=== PATIENT | male | born 1950 | race Caucasian/White ===

== ENCOUNTER 2019-05-04 16:21 | Inpatient (IN) ==
[2019-05-04 17:02] LABS: ALLEN TEST YES; BE -7.1 mmoll (-3.0-3.0); BLOOD TYPE ARTERIAL; HCO3-(ACT) 19.4 mmoll (20.0-26.0); MODALITY ROOM AIR; PCO2(98.6) 29 mmHg (35-45); PO2(98.6) 103 mmHg (60-100); SAMPLE BLOOD; pH(98.6) 7.37 (7.35-7.45)
[2019-05-04] MEDS ORDERED: NS 1,000 ML IV ONE ×2 (17:31→18:53)
[2019-05-04 17:39] LABS: BASO# 0.02 X1000 (0.0-0.2); BASO% 0.3 % (0.0-0.8); EOS# 0.11 X1000 (0.0-0.7); EOS% 1.5 % (0.0-10.0); HEMATOCRIT 35.6 % (42.0-52.0); HEMOGLOBIN 12.8 g/dL (14.0-18.0); IMM GRAN# 0.04 X1000 (0.0-0.04); IMM GRAN% 0.5 % (0.0-0.5); LYMPH# 1.32 X1000 (1.2-3.4); LYMPH% 17.8 % (20.5-51.1); MCH 29.5 PG (27-31); MONO# 1.13 X1000 (0.11-0.59); MONO% 15.2 % (1.7-9.3); MPV 8.7 FL (7.4-10.4); NEUT# 4.79 X1000 (1.4-6.5); NEUT% 64.7 % (42.2-75.2); PLT 286 X1000 (130-400); RBC 4.34 XMIL (4.7-6.1); RDW 14.6 % (11.5-14.5); WBC 7.41 X1000 (4.8-10.8)
[2019-05-04 17:40] LABS: URINE SOURCE CLEAN CATCH
--- NOTE | 2019-05-04 17:42 | PROVIDER DOCUMENTATION ---
HPI-General Adult - General Chief Complaint: DKA ALERT Stated Complaint: DR STALLINGS LAB VALUES Time Seen by Provider: 05/04/19 17:16 Source: patient Allergies/Adverse Reactions: Patient Allergies Allergy/AdvReac Type Severity Reaction Status Date / Time No Known Allergies Allergy Verified 05/04/19 17:25 Home Medications: Home Medication List Medication Instructions Recorded Confirmed Last Taken Type Amiodarone HCl 1 tab PO DAILY 05/04/19 05/04/19 05/04/19 History Folic Acid 1 tab PO BID 05/04/19 05/04/19 05/04/19 History Insulin NPH Hum/Reg Insulin Hm 1 unit SUBQ DIRECTED 05/04/19 05/04/19 05/04/19 History [Novolin 70-30 100 Unit/ml Vial] LISINOpril [Prinivil] 1 tab PO DAILY 05/04/19 05/04/19 05/04/19 History Metoprolol Succinate E.r. [Toprol 1 tab PO DAILY 05/04/19 05/04/19 05/04/19 History Xl] Pantoprazole [Protonix] 1 tab PO DAILY 05/04/19 05/04/19 05/04/19 History - History of Present Illness -Gen Adult Nature of Presenting Problems: 69 yr old M, hx of CABG, HTN, DM type 2, presents with a 4 day hx of nausea, vomiting, diarrhea and abdominal pain. The pt reports the last time he was well was on Friday. He had dinner with his siblings, and Friday he began to have na usea, vomiting and diarrhea non-stop. The pt denies sick contacts. He was at his doctor's today (incidentally, his older brother and sister noted he had developed an abnormal gait over the past week, as well as some slurring of speech, so they insisted he be seen by a PCP), and through routine triage, he was noted to have a glucose of 815. The pt admits to having seen his glucose remain at 200 all day, ins spite of an extra dose of insulin. At baseline, he take 52 units in the AM and 28 units at night. The pt currently admits to generalized abdominal soreness, secondary to the copious amount of vomiting and diarrhea. Location of Pain/Injury: reports: abdomen Quality of Pain: reports: aching Onset/Duration: reports: 4 days ago Timing: reports: still present Context/Activities at Onset: reports: none Similar Symptoms Previously?: No Recently seen or treated by another doctor?: Yes - Diabetes Related Context Context: reports: high blood sugar Review of Systems - Adult - REVIEW OF SYSTEMS - ADULT Constitutional: reports: no symptoms reported Eyes: reports: no symptoms reported Ears, Nose, Mouth & Throat: reports: no symptoms reported Cardiovascular: reports: no symptoms reported Respiratory: reports: no symptoms reported Gastrointestinal: reports: abdominal pain, diarrhea, nausea, vomiting Genitourinary: reports: no symptoms reported Musculoskeletal: reports: no symptoms reported Integumentary: reports: no symptoms reported Neurological: reports: slurred speech Psychiatric: reports: no symptoms reported Past History - Adult - PAST MEDICAL HISTORY-ADULT Review of Records: reports: Old Records Reviewed, Nursing Assessment Review Major Childhood Illnesses: reports: denies history Cardiovascular: reports: CAD, HTN Respiratory: reports: denies history Gastrointestinal: reports: denies history Neurological: reports: denies history Diabetes Type: Type 2 Diabetes controlled by:: Insulin Dependent Physical Exam-General - PHYSICAL EXAM-ADULT Initial Vital Signs Reviewed: Yes - CONSTITUTIONAL General Appearance: appears well, alert, no apparent distress - EYES Eyes: PERRL/EOMI - HEAD, EARS, NOSE, MOUTH & THROAT HENMT: normocephalic/atraumatic, moist mucous membranes - RESPIRATORY Respiratory: lungs clear, normal breath sounds - CARDIOVASCULAR Cardiovascular: regular rate, rhythm - GASTROINTESTINAL (ABDOMEN) Abdominal Exam: normal bowel sounds (hyperactive), soft, tenderness (generalized) Progress - PLAN OF CARE/RESULTS Progress/Plan/Lab Results: Vital Signs - 8 hr 05/04/19 16:35 Temperature 97.8 F Pulse Rate 72 Respiratory Rate 18 Blood Pressure 129/76 O2 Sat by Pulse Oximetry 98 Laboratory Results - last 24 hr 05/04/19 16:52 Specimen Type ARTERIAL Sample Site L RADIAL pH 7.37 pCO2 29 L pO2 103 H HCO3 19.4 L Base Excess -7.1 L Rayray Test YES A-a O2 Difference 10.0 Lactate 1.90 Blood Gas Modality ROOM AIR FiO2 % 21.0 Orders Category Date Time Status CT HEAD W/O CONTRAST [CT] Stat Exams 05/04/19 17:27 Ordered ABG [RESP] Routine Lab 05/04/19 16:52 Completed ACETONE SERUM [CHEM] Stat Lab 05/04/19 14:49 Received CBC WITH DIFF [HEME] Stat Lab 05/04/19 14:49 Results CK PROFILE [SP CHEM] Stat Lab 05/04/19 14:49 Received COMPREHENSIVE METABOLIC PANEL [CHEM] Stat Lab 05/04/19 14:49 Received LACTATE, PLASMA [CHEM] Stat Lab 05/04/19 17:04 Received MAGNESIUM [CHEM] Stat Lab 05/04/19 14:49 Received PHOSPHORUS [CHEM] Stat Lab 05/04/19 14:49 Received TROPONIN T Stat Lab 05/04/19 14:49 Received UA NIMS W/REFLEX CULT [URINALYSIS] Stat Lab 05/04/19 17:31 Ordered URINE DRUG SCREEN Stat Lab 05/04/19 17:31 Ordered 0.9% Sodium Chloride Inj [Ns] 1,000 ml Med 05/04/19 17:31 Active IV 999 mls/hr Result Diagrams: 05/04/19 14:49 05/04/19 14:49 - REASSESSMENT Reassessment #1 Time Reassessed: 19:17 (Glucose down to 484 after 15 units. Will administer another 15 units and recheck in about 30 minutes. U/S pending) Reassessment #2 Time Reassessed: 20:04 (Glu down to 327 without any additional insulin intervention. Starting seconda bag of fluids. Plan for CMP recheck at 9pm when that bag is done. Provided pt remains stable and CMP shows some return to baseline, will hope to send pt home from the ED. Pt aware of the plan. ) Status: improving - CT/MRI 1 CT Study: Abdomen, Pelvis - ULTRASOUND (By Radiology) 1 US Study: Abdomen Impression: Normal, See EMR Report - CONSULTS/PCP/HOSPITALIST Notification #1 *Consult/PCP/Hospitalist*: Dr. Paul Time Discussed: 20:50 (Dr. Paul agrees to accept; asks that we notify Surgery) Consult Disposition: Admit #2 Consult: Miles Time Discussed: 21:28 Reason/Comments: will see as consult - CHANGE OF SHIFT REPORT (ED Provider) 1 Report Given and Care Transferred to:: Dr. De Leon Time of Transfer: 20:06 (Discussed with Dr. De Leon. Repeat CMP, lactate timed for 9pm. Waiting on Surgery Callback.) Items Pending: Labs Departure - Departure Date of Disposition Decision: 05/04/19 Time of Disposition Decision: 21:12 DIAGNOSIS: Type 1 diabetes mellitus with hyperosmolarity without nonketotic hyperglycemic hyperosmolar coma, Small bowel obstruction Disposition: ADMITTED INPATIENT 09 Certified Medical Emergency: Emergent Condition: Fair Additional Instructions: Elevated liver enzymes and bilirubin noted on ED laboratory evaluation. Abdominal U/S and CT do not reveal any acute abnormalities at this time. It is recommended you follow up with your PCP to have these tests re-checked within the next few weeks. Referrals and Follow-Ups: Saleem Stallings MD [Primary Care Provider] - - Critical Care Note This patient required my direct & personal management of CC.: No Attestation - Physician/ DEZ Attestation Patient care was provided by Advanced Practice Provider:: No The physician spent face to face time with patient:: Yes Advanced Practice Provider documentation review:: Supervising physician onsite and consulted in the evaluation and care of this patient. The physician did have a face to face encounter with the patient.
[2019-05-04 17:46] LABS: BILIRUBIN URINE NEGATIVE (NEGATIVE); BLOOD URINE NEGATIVE (NEGATIVE); COLOR YELLOW; GLUCOSE URINE >1000 mg/dL (NEGATIVE); KETONE URINE NEGATIVE (NEGATIVE); LEUKOCYTES URINE MODERATE (NEGATIVE); NITRITE URINE NEGATIVE (NEGATIVE); PH URINE 5.5; PROTEIN URINE NEGATIVE (NEGATIVE); SP GRAVITY URINE 1.025; TURBIDITY URINE CLEAR (CLEAR); UROBILINOGEN URINE NORMAL (NORMAL)
[2019-05-04 17:49] LABS: UR EPITHELIAL CELLS <10 /HPF (<10); URINE BACTERIA NEGATIVE /HPF; URINE RBC <10 /HPF (<10); URINE WBC TNTC /HPF (<10)
[2019-05-04] MEDS ORDERED: HUMULIN R IV ONE ×2 (17:50→19:01)
[2019-05-04 17:57] LABS: UR AMPHETAMINES QUAL NONE DETECTED (NONE DETECT); UR BARBITUATES QUAL NONE DETECTED (NONE DETECT); UR BENZODIAZEPIN QUAL NONE DETECTED (NONE DETECT); UR CANNABINOIDS QUAL NONE DETECTED (NONE DETECT); UR COCAINE QUAL NONE DETECTED (NONE DETECT); UR METHADONE QUAL NONE DETECTED (NONE DETECT); UR OPIATES QUAL NONE DETECTED (NONE DETECT); UR OXYCODONE QUAL NONE DETECTED (NONE DETECT); UR PCP QUAL NONE DETECTED (NONE DETECT)
[2019-05-04 18:02] LABS: URINE YEAST PRESENT
[2019-05-04 18:28] LABS: ESTIMATED GFR 31
--- NOTE | 2019-05-04 18:31 | Diag Imaging Result Doc PS360 ---
EXAM: CT HEAD W/O CONTRAST INDICATION: Slurred Speech TECHNIQUE: This exam was performed using automated exposure control, adjustment of mA or kV according to patient size, and/or use of iterative reconstruction technique. COMPARISON: None. FINDINGS: There is no definite acute infarct given the limited sensitivity of CT versus MRI. There is no discrete intracranial mass, mass effect, or intracranial hemorrhage. The surrounding soft tissues and bony structures are essentially unremarkable. IMPRESSION: No evidence of acute intracranial pathology by CT. Electronically signed by Leoncio Cobb 05/04/2019 6:29 PM
[2019-05-04 18:37] LABS: AGAP 18; ALB/GLOB RATIO 1.4; ALBUMIN 4.3 g/dL (3.5-5.0); ALKALINE PHOSPHATASE 299 U/L (32-122); BUN 36 mg/dL (8-22); CALCIUM 9.2 mg/dL (8.8-10.2); CHLORIDE 89 mmol/L (98-107); CK PROFILE 85 U/L (24-204); CREATININE 2.1 mg/dL (0.7-1.2); GOT 19 U/L (10-34); GPT 27 U/L (10-44); MAGNESIUM 2.2 mg/dL (1.5-2.7); PHOSPHORUS 3.1 mg/dL (2.7-4.5); POTASSIUM 4.5 mmol/L (3.5-5.1); SODIUM 124 mmol/L (136-145); TCO2 17 mmol/L (25-35); TOTAL BILIRUBIN 1.72 mg/dL (0.20-1.00); TOTAL PROTEIN 7.4 g/dL (6.3-8.3)
[2019-05-04 18:38] LABS: ACETONE SERUM NEGATIVE (NEGATIVE)
[2019-05-04 18:39] LABS: COSMO 293
[2019-05-04 18:40] LABS: GLUCOSE 734 mg/dL (70-104)
[2019-05-04 19:07] LABS: INR 1.17; PROTIME 15.1 Seconds (11.0-16.0)
--- NOTE | 2019-05-04 19:39 | Diag Imaging Result Doc PS360 ---
EXAM: US ABDOMEN-COMPLETE INDICATION: RUQ COMPARISON: None. FINDINGS: There has been a prior cholecystectomy. The common bile duct is normal in diameter. The liver is grossly unremarkable. Portal venous flow is hepatopetal. The pancreas is obscured by bowel gas. The aorta is also obscured. The partially imaged IVC is unremarkable. The spleen is unremarkable. The kidneys are grossly unremarkable. IMPRESSION: Essentially unremarkable abdominal ultrasound. Electronically signed by Leoncio Cobb 05/04/2019 7:36 PM
--- NOTE | 2019-05-04 20:14 | Diag Imaging Result Doc PS360 ---
EXAM: CT ABDOMEN/PELVIS W/O CONTRAST INDICATION: abdominal pain TECHNIQUE: This exam was performed using automated exposure control, adjustment of mA or kV according to patient size, and/or use of iterative reconstruction technique. COMPARISON: None. FINDINGS: There has been a prior cholecystectomy. The liver and spleen are essentially unremarkable. There are a few small calcifications involving the tail the pancreas which could indicate chronic pancreatitis. The pancreas is unremarkable as imaged with unenhanced CT, otherwise. There is prominent thickening of both adrenal glands and both are low dense. This statistically most likely represents underlying adenomas or adrenal hyperplasia. There is a small left renal cyst with trace calcification at its periphery. The kidneys are essentially unremarkable, otherwise. The urinary bladder is grossly unremarkable. There are bilateral small inguinal hernias that contain only fat. The prostate is somewhat prominent. There is a surgical staple line associated with the sigmoid colon. Most of the colon appears to been resected. The anastomosis is probably with small bowel. There are multiple gas-distended loops of small bowel with air-fluid levels suggesting possible obstruction. There is focal narrowing of the bowel a few centimeters proximal to the anastomosis. A stricture here cannot be excluded (see image 129 of series 3). Diffuse mesenteric stranding surrounding the bowel was noted there are shotty nonspecific mesenteric lymph nodes. No free abdominal gas or free fluid is identified. The remainder of the GI tract is essentially unremarkable. IMPRESSION: 1.Apparent subtotal colectomy with distended loops of small bowel suggesting possible obstruction and a possible focal stricture a few centimeters proximal to the anastomosis. 2.Other incidental/nonacute findings detailed above. Electronically signed by Leoncio Cobb 05/04/2019 8:12 PM
[2019-05-04 21:45] LABS: ALB/GLOB RATIO 1.1; ALBUMIN 3.3 g/dL (3.5-5.0); CALCIUM 8.4 mg/dL (8.8-10.2); CREATININE 2.1 mg/dL (0.7-1.2); POTASSIUM 3.8 mmol/L (3.5-5.1); TOTAL BILIRUBIN 1.51 mg/dL (0.20-1.00); TOTAL PROTEIN 6.4 g/dL (6.3-8.3)
[2019-05-04 22:44] LABS: HEMOGLOBIN A1C 12.5 % (4.8-6.0)
--- NOTE | 2019-05-04 23:36 | EKG Report ---
Test Performed on : 05/04/2019 10:52:43 PM Test Reason : Poss. CVA Blood Pressure : / mmHG Vent. Rate : 063 BPM Atrial Rate : 064 BPM P-R Int : 166 ms QRS Dur : 092 ms QT Int : 342 ms P-R-T Axes : 096 -09 067 degrees QTc Int : 349 ms Undetermined rhythm Inferior infarct , age undetermined Possible Anterior infarct , age undetermined Abnormal ECG No previous ECGs available Unconfirmed Result
[2019-05-04] MEDS ORDERED: TYLENOL PR PRN (23:48)
[2019-05-04] MEDS ORDERED: ZOFRAN IV PRN ×2 (23:48)
--- NOTE | 2019-05-05 01:43 | HISTORY AND PHYSICAL ---
PRIMARY CARE PROVIDER: Dr. Stallings. DATE AND TIME: 05/04/2019 at 2115. CHIEF COMPLAINT: Nausea, vomiting, diarrhea. HISTORY OF PRESENT ILLNESS: Mr. Solorzano is a 69-year-old, male, with a past medical history most notable for diabetes mellitus type 2, hypertension, hyperlipidemia, coronary artery disease, status post coronary artery bypass graft, atrial fibrillation, and history of a benign colon mass for which he underwent a colectomy with colostomy and has since had a colostomy reversal. He also did mention that he has had a second colon surgery after his initial colectomy due to a complication from his first surgery. Though, the patient has recently moved here from [place], he reports that his most recent bowel surgery was performed by Dr. Whitehead at [facility]. Starting approximately eight days ago on April 26, the patient states that he did not notice it initially, though his brother and sister both did, that he began having some slurring of his speech and an abnormal gait. The patient states that he has had some slurring of his speech, some difficulty controlling his mouth and tongue, though he denies any difficulty swallowing. He also reports that he has had a couple of headaches over the past week and has noticed that he has occasionally been confused. He also does report left-sided weakness, tingling in his left hand, and does have a footdrop noted to his left foot. He also states when he walks, that he has been having to use a cane, which is of new onset, and that he is having trouble controlling his left leg. The patient denies any previous history of stroke. This started eight days ago. He reports that over the past week, that his sugar had not been elevated, had been in the 120 to 200 range. It did not become elevated until today, when he was at the doctor's office. Though, he states that on Friday, he also did begin to have nausea, vomiting, and diarrhea. He reports he has had several episodes of this. Though, he denies any abdominal pain. He reports emesis that is yellow in color and stools that are watery, brown in color. He denies any hematemesis, hematochezia, or melena. He did present to Dr. Stallings's office today for evaluation of his nausea, vomiting, diarrhea as well as his stroke symptoms. He was noted during the triage process at her office to have an elevated fingerstick blood sugar. He was sent to the ER for further evaluation. Upon evaluation in the ER, he was noted to have an initial serum glucose of 734, sodium of 124, potassium of 4.5, BUN 36, creatinine 2.1, GFR of 31. He had no leukocytosis present. Blood gases did show a normal pH of 7.37. Serum acetone level was negative. Though, his urinalysis did show greater than 1000 glucose, moderate leukocytes, and dny-hafkxupe-zd-count white blood cells, he is not reporting any urinary symptoms. Given his symptoms, they did perform a CT abdomen and pelvis without IV contrast, which did show an apparent subtotal colectomy with distended loops of small bowel suggesting possible obstruction and a possible focal stricture a few centimeters proximal to the anastomosis. We also did perform an abdominal ultrasound complete, which was noted to be unremarkable per Radiology. There was notation of a prior cholecystectomy. they did perform a CT head noncontrast which did not show any acute intracranial abnormalities. The patient was given 15 units of regular insulin IV as well as 2 L normal saline bolus, and since that time, his serum glucose levels have improved greatly. His most recent fingerstick blood sugar was 251. Sodium has improved and is at 131. Potassium 3.8, though BUN and creatinine are still elevated with a BUN of 34 and a creatinine of 2.1 with a GFR of 31. His troponin was slightly elevated. This could be secondary to his renal function. The patient is denying any chest pain. He does not have any acute ST abnormalities noted on his EKG. Though, his troponins are improving. The patient will be admitted for further treatment and evaluation. Dr. Aquino has been notified. The patient denied missing any of his insulin doses. He also denied any chest pain, shortness of breath, or cough. He denied any dysuria or urinary frequency. Other than his left-sided extremity symptoms, all other extremities are within normal limits. The patient will be placed on the surgical floor for further treatment and evaluation. The patient denied any fever, body aches, or chills. REVIEW OF SYSTEMS: A 14-point review of systems was conducted with the patient and all were negative, except pertinent positives mentioned above in HPI. PAST MEDICAL HISTORY: 1. History of coronary artery disease, status post 4-vessel coronary artery bypass graft. 2. Hypertension. 3. Hyperlipidemia. 4. History of atrial fibrillation. 5. Diabetes mellitus type 2. 6. Gastroesophageal reflux disease. 7. History of a benign colon mass, status post colectomy. PAST SURGICAL HISTORY: 1. A 4-vessel coronary artery bypass graft. 2. Colectomy with colostomy placement and reversal. The patient also reports he has had a secondary bowel surgery due to complications from the first. This was performed by Dr. Whitehead in [facility]. 3. Cholecystectomy. 4. Appendectomy. SOCIAL HISTORY: The patient denies any tobacco, alcohol, or illicit drug use. He did move recently from [place] to be close to family of his brother and sister. His sister was present at bedside during my examination. FAMILY HISTORY: Positive for his mother and father both passing away from complications of congestive heart failure, though his mother also had a history of diabetes mellitus and hypertension. ALLERGIES: Patient has no known allergies. HOME MEDICATIONS: 1. Amiodarone 200 mg p.o. daily. 2. Folic acid 1 mg p.o. daily. 3. Novolin 70/30, 52 units subcutaneous before breakfast if blood sugar is greater than 100, and 28 units subcutaneous before dinner if blood sugar is greater than 100. 4. Lisinopril 20 mg p.o. daily. 5. Toprol-XL 25 mg p.o. daily. 6. Protonix 40 mg p.o. daily. DIAGNOSTIC DATA: White blood cell count is 7410, hemoglobin 12.8, hematocrit 35.6, platelet count is 286,000. PT 15.1, INR 1.17, PTT is 30. Sodium 124, potassium 4.5, chloride 89, serum bicarbonate is 17, BUN 36, creatinine 2.1 with a GFR of 31, glucose 734, calcium 9.2, phosphorus 3.1, magnesium 2.2. Total bilirubin is 1.72, AST 19, ALT 27, alkaline phosphatase is 299. CK 85, troponin 0.038. Plasma lactate was initially 2.5 with a recheck of 2. Arterial blood gases were obtained on room air with a pH of 7.37, pCO2 of 29, PO2 of 103, HC03 is 19.4 with a base excess of - 7.1. Serum acetone level was 0. Urine drug screen was negative. Urinalysis was positive for greater than 1000 glucose, moderate leukocytes, dnw-erxbuvji-hz-count white blood cells, and less than 10 epithelial cells. It was negative for bacteria. EKG showed to be an undetermined rhythm. Though on this EKG, it was hard to discern P waves, though the QRS interval and QT interval are within normal limits. It is at a rate of 63 with a QTc of 349. Head CT showed no evidence of acute intracranial pathology. Ultrasound of abdomen was essentially unremarkable abdominal ultrasound. This is per Radiology. CT of abdomen and pelvis without contrast showed an appearance of total colectomy with distended loops of small bowel suggesting possible obstruction and a possible focal stricture a few centimeters proximal to the anastomosis. Please see full CT report for other incidental nonacute findings. PHYSICAL EXAMINATION: VITAL SIGNS: Temperature 98.9 degrees, heart rate 66, respirations 20. Blood pressure is 112/54. Oxygen saturation is 98% on room air. GENERAL: Mr. Solorzano is a very pleasant, 69-year-old, male, who is resting in the ER stretcher. He is in no acute distress. He is awake, alert, and able to answer questions appropriately. HEENT: Head is atraumatic, normocephalic. Pupils are equal, round, reactive to light, are 3 mm bilaterally and brisk. Oral mucosa is moist. The patient did have what appeared to be a few patches of oral candidiasis on his soft palate. Though, other than this, the oropharynx is clear. His EOMs are intact. NECK: Supple. Trachea midline. No carotid bruits noted upon auscultation bilaterally. CARDIOVASCULAR: Patient has S1-S2 present. No murmurs, gallops, rubs appreciated with a regular rate and rhythm. PULMONARY: Patient has symmetrical chest expansion bilaterally. Lung sounds are clear to auscultation in bilateral full villegas. ABDOMEN: Soft. Does not appear to be distended. Bowel sounds are present in all 4 quadrants, are normoactive. He did report tenderness in his right lower quadrant, epigastric area, and left upper quadrant upon palpation. Though, there is no rebound tenderness noted. EXTREMITIES: No cyanosis or edema noted. Radial and pedal pulses are 2+ bilaterally. INTEGUMENTARY: The patient's skin is pink, warm, and dry. NEUROLOGICAL: The patient is alert and oriented to person, place, time, and situation. EOMs are intact. Pupils are 3 mm bilaterally, are equal, round, reactive to light. Upon examination, the patient does have weakness noted to his left side. His hand grasp and muscle strength on his left side, upper and lower extremity, is weaker than the right. He is reporting numbness in his left hand. He does have what appears to be almost a footdrop on his left foot when he is asked to perform dorsal flexion. He does have a slight left-sided arm drift noted as well. Though, he did not have any facial droop present, EOMs are intact. His visual field test is within normal limits. ASSESSMENT AND PLAN: 1. Small-bowel obstruction. For further treatment and evaluation of this, the patient will be placed NPO. We will provide gentle intravenous hydration with normal saline. He did previously receive 2 L normal saline bolus. We will provide p.r.n. antiemetics as well. We will place a consult with Dr. Aquino. We will await his evaluation and further recommendations for management. 2. Nausea, vomiting, diarrhea. The patient, from what I understand, has not had any episodes of this since arriving to the ER. If he does continue to have diarrhea, we may likely need to perform stool studies. We will provide IV hydration and antiemetics as mentioned above. We will continue to monitor this closely as well as his electrolytes. 3. Fluid volume depletion. This is likely secondary to #1 and #2. We will provide IV hydration as mentioned above. We will do strict intake and output and continue to follow. 4. History of diabetes mellitus type 2 with hyperglycemia. Since receiving 15 units of IV insulin in the ER and 2 L normal saline bolus, his glucose has improved and last check was 251. We will continue with patterned fingerstick blood sugars and a regular insulin sliding scale. We will monitor the patient's electrolytes closely as well. We have ordered a hemoglobin A1c. We will continue to follow. 5. Acute kidney injury. This could be secondary to #2 and #3. We will continue to follow closely. We will avoid nephrotoxic medications and renally dose medicines as necessary. 6. Possible cerebrovascular accident. The patient's reported symptoms are described in the above HPI, as well as the neurological portion of the physical examination. CT of head noncontrast was performed in the ER and did not show any acute abnormalities. Though, for further evaluation of this, we will continue with an MRI of the brain without contrast, carotid ultrasound, echocardiogram, lipid profile in the morning, as well as a Neurology consult with Dr. Jones. We will closely monitor the patient's cardiovascular and neurovascular status. He will be placed on continuous cardiac telemetry with frequent vital signs. Blood pressure at this time is within normal limits. 7. History of coronary artery disease, status post four-vessel coronary artery bypass graft. 8. History of atrial fibrillation. 9. Deep vein thrombosis prophylaxis provided with sequential compression devices. We will hold any anticoagulants until he is evaluated by Surgery, given his bowel obstruction. 10. Oral candidiasis. We have ordered for the patient to have nystatin suspension. 11. Asymptomatic Bacteriuria. We are awaiting urine culture results. We will continue to follow. The patient has been placed on the surgical floor with telemetry. He will have vital signs and neurological checks q.4 hours. We will do strict intake and output. He will be NPO. We will repeat a CBC, CMP, and magnesium in the morning. The patient's troponins were slightly elevated, though he is denying any chest pain. His EKG does not have any acute ST abnormalities noted. This may be secondary to his renal function. We will continue with a series of cardiac enzymes. Further orders and recommendations pending hospital course, diagnostic studies, and physician evaluation. Dictated by SONNY Moran for Von Paul MD I have performed a face to face diagnostic evaluation. Labs/ Xrays- reviewed. Exam Chest- clear, CV- regular, Abd- diffuse tenderness. A/P- SBO- Admit, NPO, General Surgery consult, pain control, antiemetics. Dr. Paul cc: Von Paul MD [facility]
[2019-05-05] MEDS: SODIUM CHLORIDE 0.9% INJ SCH ×2 (01:50→22:59)
[2019-05-05] MEDS: PROTONIX IV SCH ×2 (01:50→22:59)
[2019-05-05] MEDS: NS 1,000 ML IV SCH ×3 (01:50→15:09)
[2019-05-05 07:29] LABS: BASO# 0.02 X1000 (0.0-0.2); BASO% 0.5 % (0.0-0.8); EOS# 0.12 X1000 (0.0-0.7); EOS% 2.7 % (0.0-10.0); HEMATOCRIT 26.4 % (42.0-52.0); HEMOGLOBIN 9.2 g/dL (14.0-18.0); IMM GRAN# 0.02 X1000 (0.0-0.04); IMM GRAN% 0.5 % (0.0-0.5); LYMPH# 1.13 X1000 (1.2-3.4); LYMPH% 25.5 % (20.5-51.1); MCH 28.6 PG (27-31); MCHC 34.8 g/dL (33-37); MONO# 0.64 X1000 (0.11-0.59); MONO% 14.4 % (1.7-9.3); MPV 8.5 FL (7.4-10.4); NEUT% 56.4 % (42.2-75.2); PLT 214 X1000 (130-400); RBC 3.22 XMIL (4.7-6.1); RDW 14.7 % (11.5-14.5); WBC 4.43 X1000 (4.8-10.8)
[2019-05-05 07:37] LABS: ALB/GLOB RATIO 1.5; ALBUMIN 3.2 g/dL (3.5-5.0); CALCIUM 8.1 mg/dL (8.8-10.2); MAGNESIUM 1.9 mg/dL (1.5-2.7); POTASSIUM 3.9 mmol/L (3.5-5.1); TOTAL BILIRUBIN 1.99 mg/dL (0.20-1.00); TOTAL PROTEIN 5.4 g/dL (6.3-8.3)
--- NOTE | 2019-05-05 09:44 | Diag Imaging Result Doc PS360 ---
MRI BRAIN W/O CONTRAST - 05/05/2019 INDICATION: Poss. CVA COMPARISON: Head CT 05/04/2019 FINDINGS: Tiny focus of gliosis in the periventricular white matter in the right frontal lobe. There is no area of restricted diffusion. The ventricles and sulci are normal in size and contour. No intracranial mass or hemorrhage. Midline structures including the optic chiasm and pituitary are normal. IMPRESSION: Essentially negative. Electronically signed by Leonardo Ricci 05/05/2019 9:41 AM
--- NOTE | 2019-05-05 09:51 | GENERAL SURGERY CONSULTATION ---
DATE: 05/05/2019 HISTORY OF PRESENT ILLNESS: Mr. Solorzano is a pleasant, 69-year-old, male, admitted with some left-sided weakness and some crampy abdominal pain. His history is that he had surgery in [place] back in August. He moved locally, developed a problem in November, I think with some GI bleeding, and was operated on by Dr. Whitehead in [place]. I do not know the details, but he said that he had a bleeding ulcer, and that she fixed that, and also did some type of colon surgery and did a diverting stoma. In December, this stoma was then taken away, and he has done satisfactorily after that. Six weeks ago, he was seen in followup by Dr. Whitehead's partner, and was discharged. He did well until a week ago, and after eating out, he developed vomiting and diarrhea, and has had crampy pain since then. He has been passing liquid stool. He does have gas cramps that are relieved only by passing flatus. His last formed bowel movement was almost a week ago. Coincident with all of this has been a new-onset weakness of his left side. PAST MEDICAL HISTORY: Pertinent for coronary disease, hypertension, hyperlipidemia, history of atrial fibrillation, type 2 diabetes, gastroesophageal reflux. PAST SURGICAL HISTORY: Previous surgery includes coronary bypass, colectomy, and then further bowel surgery in [place] by Dr. Whitehead in November and December. He has also had a cholecystectomy and appendectomy. MEDICATIONS: Include insulin, Mycostatin, Protonix. ALLERGIES: He has no known drug allergies. REVIEW OF SYSTEMS: Otherwise negative in the other 10 subsystems. SOCIAL HISTORY: Denies tobacco, alcohol, or illicit drug use. FAMILY HISTORY: Pertinent for congestive heart failure, diabetes, and hypertension. IMAGING AND LABORATORY DATA: His laboratory data reveals a white count of 4000, hemoglobin 9.2, hematocrit 26. BUN 34, creatinine 2.0, glucoses are in the 300s. CT scan shows diffusely dilated small bowel loops, a surgical staple line in the sigmoid. There is a question of a stricture at the anastomosis or shortly before that. PHYSICAL EXAMINATION: Vital Signs: He is afebrile, heart rate 60, blood pressure 106/44. Neck: No carotid bruits are heard. No cervical adenopathy. Lungs: Bilateral breath sounds. Heart: Irregular rate and rhythm. Abdomen: Soft and nontender. He has active bowel sounds of gurgling, and is somewhat tympanitic. Extremities: Femoral pulses are present. No peripheral edema. Neurologic: He is weaker on the left side as compared to the right side. ASSESSMENT: 1. Partial bowel obstruction, possibly as a result of his previous surgery or adhesions. 2. Left-sided weakness of uncertain etiology. PLAN: The plan will be to order a barium study to see if, in fact, how near the anastomosis is. We will continue with bowel rest and hydration. I think we will also image his carotids in view of his left-sided weakness. cc: Kareem Aquino MD
--- NOTE | 2019-05-05 10:14 | Diag Imaging Result Doc PS360 ---
BARIUM ENEMA - 05/05/2019 INDICATION: partial bowel obstruction TECHNIQUE: Total fluoroscopy time was one minute six seconds. 20 images were obtained. COMPARISON: CT from 05/04/2019 FINDINGS: There has been near-total colectomy. On the student counsellor exam, there are diffuse gas-filled dilated loops of small bowel. The very small colonic remnant and the anastomosis are patent. No evidence of stricture here. There is passage of contrast throughout several distal small bowel loops. IMPRESSION: Diffusely dilated small bowel, reason is unclear. No evidence of stricture or other complication. Electronically signed by Leonardo Ricci 05/05/2019 10:11 AM
[2019-05-05] MEDS: MYCOSTATIN SUSP PO SCH ×3 (13:03→21:41)
[2019-05-05] MEDS: HUMULIN R SUBQ SCH ×2 (13:03→16:16)
--- NOTE | 2019-05-05 14:10 | CONSULTATION ---
DATE OF CONSULTATION: 05/05/2019 HISTORY OF PRESENT ILLNESS: Mr. Solorzano is 69 years old, and there is evidence of stroke and question of other neurologic problem. History from the patient, which may not be completely valid due to reported cognitive impairment, is that he began to notice weakness and numbness in the left limbs sometime between 2 weeks and a month ago. He had some trouble walking, but did not fall. He learned that he had to concentrate to pick his left leg up to prevent tripping, but he reports he did not trip or fall. He did not notice facial asymmetry. There was no vision disturbance. He had a little bit of slurred speech. He had slight difficulty with swallowing. He had some headache, which was worse some days than others. There was never altered consciousness or altered awareness by his report. He has not had previous stroke, seizure, serious head injury, or other neurologic event. He has been aware of some forgetfulness. Attentive brother at the bedside today confirms that the patient has been forgetful for several months, sometimes much worse than others. Brother has been aware of the change in gait over the last few weeks. Mr. Solorzano reports developing a good bit of vomiting and diarrhea over several days prior to admission. He reports feeling woozy and lightheaded. He presented to his primary physician's office, and was referred to the emergency room with finding of extreme high blood sugar. Blood sugar here was initially greater than 700, recently in the 300s. There was anemia. WBC count was initially 7000, later 4000. Sodium was 124, partially corrected to 130. BUN was 36, and recently 34. Urine drug screen was all negative. Brain MRI without contrast showed single tiny right frontal signal without restricted diffusion. The usual micro-ischemic changes were also noted bilaterally. He has been afebrile. Heart rate has ranged 50s to 70s. Systolic blood pressures have ranged 100 to 130s. Past history is remarkable for diabetes mellitus, hypertension, dyslipidemia, ischemic heart disease, CABG, atrial fibrillation, colectomy for management of benign mass. Mr. Solorzano reports no recent medication changes. He thinks he was taking his medicines as directed. He reports blood sugars usually 100 to 200 at home, but brother at the bedside reports blood sugars sometimes near 400 recently. PHYSICAL EXAMINATION: On exam, Mr. Solorzano is awake, alert, attentive. Speech is minimally dysarthric and easily understood. Language function is intact. Remote memory is fair. Recent memory is poor. I did not test his cognitive function more thoroughly at the bedside. Head and neck are unremarkable. Visual villegas are full to confrontational finger counting. Extraocular movements are full. Facial motility is slightly diminished on the left in an upper motor neuron pattern. Gag is intact. Tongue protrudes very slightly to the left. He reports equal pinprick appreciation over the face. He reports good pinprick appreciation symmetrically at the knees. He has a stocking pattern of sensory loss to pinprick and light touch testing bilaterally. He reports better pinprick appreciation over the right palm than the left. Proprioception is good at the great toe MTP joint bilaterally and at the second finger PIP joint bilaterally. He has normal strength in the right limbs. On the left, I can overcome the deltoid grading 4+/5, wrist extensor 4/5, quilting supervisor 4/5, iliopsoas 4/5, anterior tibialis 2/5. Tone is slightly increased in the left limbs. He did well on [id number] testing bilaterally. I did not test his gait. Reflexes are 2+ at the knees, trace at the left ankle, and absent at the right ankle. Plantar response is silent bilaterally. IMPRESSION: 1. Mild left hemiparesis. Report suggests that this has been present over the last several weeks. The right hemisphere MRI finding is consistent with left hemiparesis, but I am not certain that the lesion present on imaging is responsible for the deficit. There is certainly not evidence of acute ischemic infarction, bleeding or mass. 2. Left footdrop. This may be related to right hemisphere stroke, but might also be peroneal palsy at the knee. 3. He has clinical evidence of peripheral neuropathy, presumed diabetic neuropathy. 4. Forgetfulness. He likely has at least a mild cognitive impairment syndrome, and he might have major neurocognitive disorder/dementia. Brother's report sounds like there is some fluctuation in his cognitive status, which may relate to his recently poorly- controlled blood sugars. If we can re-evaluate cognitive function electively when blood sugar is controlled, we can make a better decision regarding recommendation for cholinesterase inhibitor trial. I encouraged Mr. Solorzano to be attentive and aggressive with his physical therapy and with his blood sugar control. I believe any stroke event is not now acute, and we can treat blood pressure as aggressively as needed. Thank you for asking Neurology to see Mr. Solorzano. I will be glad to see him again if needed. cc: MD CONSTANTIN Thorne III
--- NOTE | 2019-05-05 14:13 | ECHO REPORT ---
ORDER DATE: 05/05/2019 INTERPRETING PHYSICIAN: Dr. Earl Davila. ECHOCARDIOGRAPHIC MEASUREMENTS: 1. Interventricular septum: 1.4 cm. 2. Left ventricular posterior wall: 1.4 cm. 3. Diastolic diameter: 4.5 cm. 4. Left atrium: 4.4 cm. 5. Aorta: 3.9 cm. SUMMARY OF THE 2-DIMENSIONAL IMAGIN. Aortic valve leaflets were trileaflet. 2. Pulmonic valve was normal. 3. Tricuspid valve was normal. 4. Mitral valve was normal. There is mild mitral regurgitation. 5. Peak velocity across the aortic valve less than 2 m/sec by Doppler studies. There is no aortic stenosis or regurgitation. 6. Technically suboptimal study. Poor acoustic window. 7. There is mild tricuspid regurgitation. Peak velocity across the tricuspid valve was 2 m/sec. 8. There is no pericardial effusion. 9. Right ventricle not well visualized. cc: Earl Davila MD
--- NOTE | 2019-05-05 14:23 | PROGRESS NOTE ---
DATE: 05/05/2019 SUBJECTIVE: The patient seems to be doing well. As per the patient, he is passing gas. He does have left-sided weakness, which is chronic. Apparently, he has been having this problem for at least 3 months, and he did not notice any changes. We have an MRI without contrast that did not show any abnormality, as well as abdomen and pelvis CT scan also showed a subtotal colectomy with distended loops of small bowel suggesting possible obstruction and a possible focal stricture a few centimeters proximal to the anastomosis. Surgery Department evaluated this patient. They requested to do a barium enema that showed a diffusely dilated small bowel. The reason is unclear, but no evidence of stricture or any other complication OBJECTIVE: Vital Signs: Temperature 98 degrees, pulse 61, respiratory rate 16, blood pressure 123/54, oxygen saturation 100% on room air. HEENT: Head normocephalic. No trauma. PERRLA. Neck: Supple. No JVD. No masses. Central trachea. Chest: Clear to auscultation. No wheezing. No rales. Abdomen: Soft. He does have some bowel sounds. He has generalized tenderness to palpation, but no focal pain, no rebound. Extremities: No edema, no clubbing, no cyanosis. Neurological: He is alert. He is oriented. He is following commands. He does have left-sided weakness, around 4/5. LABORATORY DATA: WBC 4.4, hemoglobin 9.2, hematocrit 26.4, platelets 214,000. Sodium 130, potassium 3.9, chloride 102, bicarbonate 18, BUN 34, creatinine 2, glucose 234, calcium 8.1. Magnesium 1.9. ASSESSMENT AND PLAN: 1. Possible partial bowel obstruction. Surgery Department on board. Barium enema showed some diffusely dilated small bowel, and abdomen and pelvis CT scan showed the possibility of distended loops of small bowel suggesting possible obstruction, and a possible focal stricture a few centimeters proximal to the anastomosis. This patient's pain is better. He is passing gas. No bowel movement so far. Continue to monitor. Surgery on board. 2. Uncontrolled type 2 diabetes. I have placed this patient on Lantus. Continue with sliding scale insulin. His hemoglobin A1c is greater than 12. 3. Nausea, vomiting, and diarrhea. He is not having nausea or vomiting at this moment. Will continue to monitor. No diarrhea either. 4. Fluid volume depletion. He seems to be more hydrated now. 5. Acute kidney injury. Actually, probably this is his baseline. His last creatinine was done in 11/2018 and it was 1.8, so we are really close to his baseline. 6. Likely history of cerebrovascular accident and/or neuropathy. As per the patient, he has been having left-sided weakness for a few months. I do not see any evidence of changes in the CT scan or MRI. Neurology Department has been consulted. 7. History of coronary artery disease, status post 4-vessel coronary artery bypass graft. Aware. No chest pain. 8. History of atrial fibrillation. Aware. 9. Deep vein thrombosis prophylaxis with sequential compression devices. 10. Oral candidiasis. Continue with nystatin. cc: Konrad Bell MD
[2019-05-05] MEDS: LANTUS INSULIN SUBQ SCH (18:22)
--- NOTE | 2019-05-05 21:17 | Carotid Study ---
DATE: 05/05/2019 PROCEDURE: Bilateral carotid duplex. LUGGAGE LINER: Viraj. REQUESTING PHYSICIAN: Hospitalist. INDICATION: Left-sided weakness. FINDINGS: The bilateral carotid arteries were visualized. The right bulb, there is a plaque extending proximal to the internal carotid artery that does cause downstream elevation of velocities that would correlate to a 40 to 59 percent lesion here. In the left, similar changes are noted in the bulb, and again, elevation of velocities correlating to a 40 to 59 percent lesion. Vertebrals are antegrade. IMPRESSION: Moderate stenoses bilaterally with antegrade vertebrals. cc: Vasiliy Brar MD
[2019-05-06] MEDS: HUMULIN R SUBQ SCH ×5 (00:37→17:23)
[2019-05-06 07:12] LABS: BASO# 0.01 X1000 (0.0-0.2); BASO% 0.2 % (0.0-0.8); EOS# 0.09 X1000 (0.0-0.7); HEMATOCRIT 27.9 % (42.0-52.0); HEMOGLOBIN 9.9 g/dL (14.0-18.0); IMM GRAN# 0.02 X1000 (0.0-0.04); IMM GRAN% 0.4 % (0.0-0.5); LYMPH# 0.99 X1000 (1.2-3.4); MCH 29.4 PG (27-31); MCHC 35.5 g/dL (33-37); MCV 82.8 FL (81-99); MONO# 0.54 X1000 (0.11-0.59); MPV 8.5 FL (7.4-10.4); NEUT# 2.84 X1000 (1.4-6.5); NEUT% 63.4 % (42.2-75.2); PLT 210 X1000 (130-400); RBC 3.37 XMIL (4.7-6.1); RDW 14.8 % (11.5-14.5); WBC 4.49 X1000 (4.8-10.8)
[2019-05-06 07:30] LABS: CALCIUM 8.3 mg/dL (8.8-10.2); CREATININE 1.6 mg/dL (0.7-1.2); POTASSIUM 3.6 mmol/L (3.5-5.1); TOTAL BILIRUBIN 1.37 mg/dL (0.20-1.00); TOTAL PROTEIN 5.9 g/dL (6.3-8.3)
[2019-05-06] MEDS: LOVENOX SUBQ SCH (08:35)
[2019-05-06] MEDS: MYCOSTATIN SUSP PO SCH ×4 (08:35→20:45)
[2019-05-06] MEDS: LANTUS INSULIN SUBQ SCH (08:35)
[2019-05-06] MEDS ORDERED: BLISTEX MEDICATED BERRY LIP BALM TOP ONE (09:08)
--- NOTE | 2019-05-06 12:17 | PROGRESS NOTE ---
DATE: 05/06/2019 SUBJECTIVE: Mr. Solorzano reports he is thirsty and otherwise he feels well. He believes he is stronger in the left limbs today. OBJECTIVE: On exam, his power in the arms is good on brief bedside testing bilaterally. He is awake, alert, attentive. He seems a little bit brighter today than yesterday, but I did not test his cognitive function thoroughly. IMPRESSION: I do not have any new suggestion. I encouraged him to be aggressive with the management of his cerebrovascular risk factors. He might need some workup for the foot drop and presumed diabetic peripheral neuropathy electively. Also, as previously mentioned, cognitive evaluation could be considered as an outpatient. Thanks for asking Neurology to see Mr. Solorzano. cc: Julissa Jones III, MD MTDEdson
--- NOTE | 2019-05-06 14:36 | Diag Imaging Result Doc PS360 ---
ABDOMEN FLAT/UPRIGHT - 05/06/2019 INDICATION: Partial sbo COMPARISON: 05/05/2019 FINDINGS: There are several significantly gas-distended loops of small bowel similar to prior. These measure up to 5.3 cm. There is some trace contrast remaining in the rectum from the prior enema. No free air. Significant calcified vascular disease. IMPRESSION: No change from prior. Numerous gas-distended loops of small bowel compatible with partial small bowel obstruction. Electronically signed by Leonardo Ricci 05/06/2019 2:34 PM
[2019-05-06] MEDS: NS 1,000 ML IV SCH (16:54)
[2019-05-06] MEDS: ASPIRIN PO SCH (17:23)
--- NOTE | 2019-05-06 18:11 | GENERAL SURGERY PROGRESS NOTE ---
DATE: 05/06/2019 Mr. Solorzano is doing better. His abdomen is soft. His bowels are moving. His barium enema showed patency to the anastomosis. His left-sided strength seems a little bit better. FINDINGS: Carotid imaging showed only 40% to 59% stenoses bilaterally. My recommendation would be to go ahead and feed him as his ileus seems to be resolving. There is no evidence of obstruction at the anastomosis. Would also recommend antiplatelet therapy for his vasculature in view of his recent stroke. No operative intervention is indicated at this time. Thanks for the opportunity to see him. cc: Kareem Aquino MD
[2019-05-06] MEDS: PROTONIX IV SCH ×2 (20:45→23:37)
[2019-05-06] MEDS: SODIUM CHLORIDE 0.9% INJ SCH (20:46)
[2019-05-06] MEDS ORDERED: LIPITOR PO SCH (21:00)
[2019-05-07] MEDS: HUMULIN R SUBQ SCH ×3 (01:26→11:04)
--- NOTE | 2019-05-07 05:22 | PROGRESS NOTE ---
DATE: 05/06/2019 SUBJECTIVE: The patient is sitting up in a chair. He states that he is hungry and wants to eat. He has been having multiple loose stools today. He denies having any nausea or vomiting. OBJECTIVE: Vital Signs: Temperature 98 degrees, blood pressure 130/55, heart rate 64, respirations 16, O2 saturations 100% on room air. General: This is a chronically ill-appearing, elderly male sitting up in a chair in no acute distress. Heart: S1, S2 normal. Regular rate and rhythm. Lungs: Equal air entry bilaterally. No wheezing. No rales. Abdomen: Positive bowel sounds. Soft, nontender, nondistended. Extremities: No edema, no cyanosis. Neurologic: The patient is alert and oriented x4. LABS: White blood cell count 4.4, hemoglobin 9.9, hematocrit 27, platelets 210,000. Sodium 135, potassium 3.6, chloride 107, CO2 16, BUN 30, creatinine 1.6, glucose 259, calcium 8.3. Carotid duplex revealed moderate stenosis bilaterally. ASSESSMENT AND PLAN: 1. Partial small bowel obstruction, improved. The patient's diet has been advanced by the general surgeon. We will continue to monitor the patient closely. 2. Uncontrolled insulin-dependent diabetes mellitus type 2. Will start the patient on Novolin 70/30. Continue with sliding scale. 3. Acute kidney injury on chronic kidney disease, slowly improving. 4. Left hemiparesis. The patient does show evidence of carotid artery stenosis. Will start aspirin and statin therapy. Continue with physical therapy. 5. Hypertension, stable. Continue on the current treatment regimen. 6. Deep vein thrombosis prophylaxis. Continue on Lovenox. 7. Will consult physical therapy and occupational therapy. cc: Ludmila Key MD
[2019-05-07 07:10] LABS: HEMATOCRIT 28.3 % (42.0-52.0); HEMOGLOBIN 10.1 g/dL (14.0-18.0); MCH 30.1 PG (27-31); MCHC 35.7 g/dL (33-37); MCV 84.2 FL (81-99); MPV 8.4 FL (7.4-10.4); RBC 3.36 XMIL (4.7-6.1); RDW 14.9 % (11.5-14.5); WBC 4.54 X1000 (4.8-10.8)
[2019-05-07 07:24] LABS: CALCIUM 8.3 mg/dL (8.8-10.2); CREATININE 1.6 mg/dL (0.7-1.2); MAGNESIUM 2.2 mg/dL (1.5-2.7); POTASSIUM 3.7 mmol/L (3.5-5.1)
[2019-05-07] MEDS ORDERED: SODIUM PHOSPHATE 30 MMOL in NS 250 ML IV ONE (07:34)
[2019-05-07] MEDS: LOVENOX SUBQ SCH (08:19)
[2019-05-07] MEDS: ASPIRIN PO SCH (08:19)
[2019-05-07] MEDS: MYCOSTATIN SUSP PO SCH ×2 (08:19→14:01)
[2019-05-07] MEDS ORDERED: LANTUS INSULIN SUBQ SCH ×3 (09:00→21:00)
--- NOTE | 2019-05-07 10:23 | PROGRESS NOTE ---
DATE: 05/07/2019 SUBJECTIVE: Mr. Solorzano has no new complaints today. He reports he plans to be aggressive with management of his blood sugar and he will be motivated with his physical therapy. OBJECTIVE: On exam, he is awake, alert, attentive and appropriate. Speech is not significantly dysarthric. Left footdrop is the same as a few days ago. ASSESSMENT: I will plan to see him as an outpatient to follow up on his cognitive status, peripheral neuropathy, and left footdrop. I do not have any new suggestion from stroke management standpoint today. Thanks for asking me to see Mr. Solorzano. cc: Julissa Jones III, MD MTDEdson
[2019-05-07 11:17] VITALS: BP 133/52
--- NOTE | 2019-05-09 19:13 | DISCHARGE SUMMARY ---
ADMISSION DATE: 05/04/2019 DISCHARGE DATE: 05/07/2019 FINAL DISCHARGE DIAGNOSIS: 1. Partial small bowel obstruction. 2. Uncontrolled insulin-dependent diabetes mellitus type 2. 3. Acute kidney injury on chronic kidney disease. 4. Left hemiparesis. 5. Moderate carotid artery stenosis. 6. Hypertension. 7. Coronary artery disease status post coronary artery bypass graft. CONSULTATIONS: 1. General Surgery consultation with Dr. Aquino. 2. Neurology consultation with Dr. Jones. IMAGIN. Head CT performed on 05/04/2019 that revealed no acute pathology. 2. Abdominal ultrasound performed on 05/04/2019 that was unremark[address]. 3. CT of the abdomen and pelvis which revealed subtotal colectomy with distended loops of small bowel suggesting a possible obstruction. 4. MRI of the brain performed on 05/05/2019 that was negative. 5. Echocardiogram performed on May 05 that revealed mild tricuspid regurgitation. Mild mitral regurgitation. Technically suboptimal study. 6. Barium enema performed on 05/05/2019 that revealed a diffusely dilated small bowel. No evidence of stricture or complication. 7. Carotid Doppler study which revealed moderate stenosis bilaterally with antegrade vertebrals with a velocity of 40 to 59 percent. HOSPITAL COURSE: Mr. Solorzano is a 69-year-old male with a history of multiple medical problems who initially presented to the ER with a chief complaint of nausea, vomiting and diarrhea. In the ER a CT of the abdomen and pelvis was done that revealed possible obstruction. The patient was admitted to the hospitalist service. He was made NPO and General Surgery was consulted. A barium enema was ordered that revealed no evidence of stricture. The patient was made NPO and started on IV fluids, monitored closely. Eventually the patient started passing flatus and started having bowel movements with conservative management. Neurology was consulted due to the patient's left side weakness. A brain MRI was done that was noted to be negative. A carotid Doppler study was also performed that revealed moderate carotid artery stenosis with a percentage of 40 to about 59%. The patient continued to improve clinically and his diet was slowly advanced which he tolerated without any difficulty. Given the carotid artery stenosis, the patient was started on aspirin. The patient continued to improve clinically and was ultimately cleared for discharge home on 05/07/2019. DISCHARGE MEDICATIONS: 1. Aspirin 325 mg oral daily. 2. Lipitor 40 mg p.o. at bedtime. 3. Folic acid 1 mg p.o. twice a day. 4. Lisinopril 1 tab oral daily. 5. Protonix 40 mg p.o. daily. 6. Amiodarone 1 tablet oral daily. 7. Toprol-XL 1 tab oral daily. 8. NPH 52 units subcutaneous every morning. DISCHARGE DIET: 1800 ADA diet low-sodium, low-cholesterol diet. ACTIVITY: As tolerated. FOLLOWUP INSTRUCTIONS: The patient will need to follow up with Dr. Aquino in 1 to 2 weeks. The patient will need to follow up with Dr. Jones as scheduled by his clinic. The patient will resume home health services with [facility]. cc: Ludmila Key MD
== END 2019-05-07 15:51 | disposition home health service (06) | DRG 389 ==
LOC: ED 16:21 → SUATTDRO 22:58 → 4N 22:58
PROVIDERS: ATTEND Internal Medicine

== ENCOUNTER 2019-05-18 07:56 | Inpatient (IN) ==
[2019-05-18] MEDS ORDERED: TYLENOL PO ONE (08:33)
[2019-05-18] MEDS ORDERED: NS 1,000 ML IV ONE ×2 (08:33→11:33)
--- NOTE | 2019-05-18 08:34 | PROVIDER DOCUMENTATION ---
HPI-General Adult - General Chief Complaint: GI Bleed Stated Complaint: GI BLEED Time Seen by Provider: 05/18/19 08:04 Source: patient Allergies/Adverse Reactions: Patient Allergies Allergy/AdvReac Type Severity Reaction Status Date / Time No Known Allergies Allergy Verified 05/18/19 08:13 Home Medications: Home Medication List Medication Instructions Recorded Confirmed Last Taken Type Amiodarone HCl 1 tab PO DAILY 05/04/19 05/18/19 05/04/19 History Folic Acid 1 tab PO BID 05/04/19 05/18/19 05/04/19 History LISINOpril [Prinivil] 1 tab PO DAILY 05/04/19 05/18/19 05/04/19 History Metoprolol Succinate E.r. [Toprol 1 tab PO DAILY 05/04/19 05/18/19 05/04/19 History Xl] Pantoprazole [Protonix] 1 tab PO DAILY 05/04/19 05/18/19 05/04/19 History Aspirin 325 mg PO DAILY #0 tab 05/07/19 05/18/19 Unknown Rx Insulin NPH Hum/Reg Insulin Hm 52 unit SUBQ QAM #0 05/07/19 05/18/19 05/04/19 Rx [Novolin 70-30 100 Unit/ml Vial] ATORVAstatin [Lipitor] 40 mg PO QHS 05/18/19 05/18/19 Unknown History - History of Present Illness -Gen Adult Nature of Presenting Problems: 69 yr old M, hx of DM, colectomy, small bowel obstruction, presents today with approximately four day hx of general malaise, nausea, vomiting, diarrhea. The pt was recently discharged from the hospital after being admitted due to partial SBO and uncontrolled hyperglycemia. Today he reports that a week ago he fell, and since then has "been going downhill". The pt reports fever, the highest being 102.7; nausea, weakness and multiple bouts of diarrhea, in which he reports seeing blood. He denies sick contacts; states that he has been taking his insulin as instructed. He denies abdominal pain or chest pain; does report that his "backside hurts", because he has been having so much diarrhea. Location of Pain/Injury: reports: lower body, other Pain Radiation: reports: no radiation Onset/Duration: reports: 4 days ago Timing: reports: still present Associated Symptoms: reports: diarrhea, nausea Similar Symptoms Previously?: Yes Recently seen or treated by another doctor?: Yes (d/c on 05/09 from hospital) - Diabetes Related Context Context: reports: high blood sugar Review of Systems - Adult - REVIEW OF SYSTEMS - ADULT Constitutional: reports: fever, fatique Eyes: reports: no symptoms reported Ears, Nose, Mouth & Throat: reports: no symptoms reported Cardiovascular: reports: no symptoms reported Respiratory: reports: no symptoms reported Gastrointestinal: reports: diarrhea, nausea Genitourinary: reports: no symptoms reported Musculoskeletal: reports: no symptoms reported Integumentary: reports: no symptoms reported Neurological: reports: no symptoms reported Psychiatric: reports: no symptoms reported Past History - Adult - PAST MEDICAL HISTORY-ADULT Review of Records: reports: Old Records Reviewed, Nursing Assessment Review Major Childhood Illnesses: reports: denies history Cardiovascular: reports: CAD, HTN Respiratory: reports: denies history Gastrointestinal: reports: denies history Neurological: reports: denies history Physical Exam-General - PHYSICAL EXAM-ADULT Initial Vital Signs Reviewed: Yes - CONSTITUTIONAL General Appearance: alert, mild distress - EYES Eyes: PERRL/EOMI - HEAD, EARS, NOSE, MOUTH & THROAT HENMT: moist mucous membranes - RESPIRATORY Respiratory: lungs clear, normal breath sounds - CARDIOVASCULAR Cardiovascular: regular rate, rhythm - GASTROINTESTINAL (ABDOMEN) Abdominal Exam: normal bowel sounds, non tender, soft - GENITOURINARY Male Genitalia: circumcised, other (perineal tenderness, erythema, swelling, tense to palaption, extends to just distal to the scrotum) Rectal Exam: normal rectal tone, hemorrhoids, tenderness, other (upon parting the cheeks to perform the rectal exam, grayish-yellowish liquid began pouring from a previously unnoticed fissure. The pt was not aware that he had a perianal abscess.) Hemoccult Exam: heme positive stool - MUSCULOSKELETAL Extremity: no calf tenderness - SKIN Integumentary: warm/dry - PSYCHIATRIC Psych/Mental Status: normal mood/affect, oriented x 3 Progress - PLAN OF CARE/RESULTS Progress/Plan/Lab Results: Vital Signs - 8 hr 05/18/19 08:00 Temperature 98.5 F Pulse Rate 70 Respiratory Rate 18 Blood Pressure 137/61 O2 Sat by Pulse Oximetry 98 Orders Category Date Time Status BLOOD CULTURE [BLDCUL] Stat Lab 05/18/19 08:33 Uncollected CBC WITH ELECTRONIC DIFF [HEME] Stat Lab 05/18/19 08:21 Uncollected COMPREHENSIVE METABOLIC PANEL [CHEM] Stat Lab 05/18/19 08:31 Uncollected INFLUENZA SCREEN A/B Stat Lab 05/18/19 08:31 Uncollected Acetaminophen [Tylenol] Med 05/18/19 08:33 Once 1,000 mg PO NOW ONE Ns 1000 ml IV Bolus X1 Med 05/18/19 08:33 Ordered 0.9% Sodium Chloride Inj [Ns] 1,000 ml IV 999 mls/hr ED Course is as follows: Pt has elevated WBC; clinically has possible abscess; 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 Both Surgery and Urology are aware and will be consulting on the patient - the hospitalist will be admitting for further management. The pt and his family have been made aware. Result Diagrams: 05/18/19 08:10 05/18/19 08:10 - CT/MRI 1 CT Study: Pelvis Impression: See EMR Report CT Results: per CT read, abscess with concern for Basil's Gangrene - CONSULTS/PCP/HOSPITALIST Notification #1 *Consult/PCP/Hospitalist*: Leona for Dr. Echavarria Time Discussed: 09:42 Reason/Comments: Kindra-rectal Abscess in diabetic patient Consult Disposition: Admit #2 Consult: Dr. Kincaid Time Discussed: 11:05 Reason/Comments: Basil's Consult Disposition: other (will follow along with Surgery) Departure - Departure Date of Disposition Decision: 05/18/19 Time of Disposition Decision: 09:56 DIAGNOSIS: Perirectal abscess Disposition: ADMITTED INPATIENT 09 Certified Medical Emergency: Emergent Condition: Fair - Critical Care Note This patient required my direct & personal management of CC.: No Attestation - Physician/ DEZ Attestation Patient care was provided by Advanced Practice Provider:: No The physician spent face to face time with patient:: Yes Advanced Practice Provider documentation review:: Supervising physician onsite and consulted in the evaluation and care of this patient. The physician did have a face to face encounter with the patient.
[2019-05-18] MEDS ORDERED: VANCOMYCIN 1 GM/NS 1 GM/250 ML IVPB IV ONE (08:45)
[2019-05-18] MEDS ORDERED: ZOSYN 3.375 GM in NS 50 ML IV ONE (08:46)
[2019-05-18] MEDS ORDERED: ZOFRAN IV ONE (08:46)
[2019-05-18 08:56] LABS: ALB/GLOB RATIO 0.8; ALBUMIN 2.9 g/dL (3.5-5.0); BASO# 0.01 X1000 (0.0-0.2); BASO% 0.1 % (0.0-0.8); CALCIUM 8.7 mg/dL (8.8-10.2); CREATININE 1.5 mg/dL (0.7-1.2); EOS# 0.06 X1000 (0.0-0.7); EOS% 0.4 % (0.0-10.0); HEMATOCRIT 26.4 % (42.0-52.0); HEMOGLOBIN 9.1 g/dL (14.0-18.0); IMM GRAN# 0.09 X1000 (0.0-0.04); IMM GRAN% 0.7 % (0.0-0.5); LYMPH# 0.69 X1000 (1.2-3.4); LYMPH% 5.1 % (20.5-51.1); MCH 29.3 PG (27-31); MCHC 34.5 g/dL (33-37); MCV 84.9 FL (81-99); MONO# 1.11 X1000 (0.11-0.59); MONO% 8.2 % (1.7-9.3); MPV 8.2 FL (7.4-10.4); NEUT# 11.61 X1000 (1.4-6.5); NEUT% 85.5 % (42.2-75.2); PLT 299 X1000 (130-400); POTASSIUM 3.6 mmol/L (3.5-5.1); RBC 3.11 XMIL (4.7-6.1); RDW 14.3 % (11.5-14.5); TOTAL BILIRUBIN 1.57 mg/dL (0.20-1.00); TOTAL PROTEIN 6.5 g/dL (6.3-8.3); WBC 13.57 X1000 (4.8-10.8)
--- NOTE | 2019-05-18 10:52 | Diag Imaging Result Doc PS360 ---
CT PELVIS WITH IV CONTRAST ONL - 05/18/2019 INDICATION: Perirectal abscess in Diabetic Patient COMPARISON: 05/04/2019 FINDINGS: There is extensive soft tissue gas in the inferior perineum, mostly below the pelvic diaphragm extending into the inferior posterior buttock bilaterally and forward to the level of the scrotum. There is also extension of this process above the urogenital diaphragm along the right side of the rectum in the right side of the prostate. There is only a small amount of fluid, this is primarily gas with surrounding subcutaneous inflammation. There is severe diffuse vascular calcification compatible with severe vascular disease throughout the pelvis and thighs. Urinary bladder is very distended with fluid. There has probably been subtotal colectomy with anastomosis to the upper rectum. No bowel obstruction. No intraperitoneal acute process. There is advanced degeneration of the lower lumbar spine and pelvis. No acute bony lesions. IMPRESSION: Basil's gangrene. This report was discussed with Dr. Unruly Rouse on 05/18/2019 at 10:45 AM and was readback. This exam was performed using automated exposure control, adjustment of mA or kV according to patient size, and/or use of iterative reconstruction technique Electronically signed by Leonardo Ricci 05/18/2019 10:50 AM
[2019-05-18] MEDS ORDERED: NS 1,000 ML IV SCH (11:45)
--- NOTE | 2019-05-18 12:17 | GENERAL SURGERY CONSULTATION ---
DATE: 05/18/2019 REQUESTING PHYSICIAN: Emergency Department. REASON FOR CONSULTATION: Gluteal abscess. HISTORY OF PRESENT ILLNESS: A 69-year-old gentleman with a recent history of colectomy and small bowel resection, who presented to the emergency department with a 4-day history of generalized malaise, nausea, vomiting and diarrhea. He had been in the hospital earlier this month and has continued decline. He has had a temperature up to 102 degrees. He has had some drainage from his bottom. He was seen in the emergency department where he had a CT scan. The CT scan itself is concerning for Basil gangrene. I was asked to weigh an opinion. He does have some tenderness down low. PAST MEDICAL HISTORY: Includes coronary artery disease, hypertension, hyperlipidemia, atrial fibrillation, diabetes mellitus type 2, gastroesophageal reflux disease, history of benign colon mass. PAST SURGICAL HISTORY: 1. Includes coronary artery bypass. 2. Colectomy with reversal. 3. Cholecystectomy. 4. Appendectomy. SOCIAL HISTORY: Denies alcohol, tobacco or illicit drugs. FAMILY HISTORY: Positive for congestive heart failure. ALLERGIES: None. HOME MEDICATIONS: Reviewed. REVIEW OF SYSTEMS: A full 10 point review of systems obtained and negative as those specified in HPI. PHYSICAL EXAMINATION: Vital Signs: The patient's current temperature is 98.5 degrees, his vital signs remain stable. General: No acute distress but appears chronically ill, male, looks stated age. HEENT: Normocephalic, atraumatic. Pupils equal, round, reactive to light. Mucous membranes moist. Oropharynx benign. Neck: Supple. Trachea midline. Cardiovascular: Regular rate and rhythm. Lungs: Grossly clear. Abdomen: Soft. Perirectal exam: There is crepitus extending to the base of his penis consistent with Basil's. There is tenderness and swelling along the whole perineum. Extremities: Moves all extremities. Neurologic: Grossly intact. Skin: As noted above. Vascular: All extremities perfused. LABORATORY DATA: White blood count 13, hematocrit 26, platelet count 299,000. Sodium is 132, creatinine is 1.5. Bilirubin is 1.57. IMAGING: CT scan independently reviewed and reviewed with radiologist seems consistent with Basil gangrene. 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 At this time, agree with the Hospitalist to admit. We will probably need to consider getting Urology's input. Would recommend starting aggressive antibiotics. Will discuss further with the Hospitalist Service. cc: Nirmal Rouse MD
--- NOTE | 2019-05-18 12:37 | HISTORY AND PHYSICAL ---
PRIMARY CARE PHYSICIAN: Dr. Stallings. CHIEF COMPLAINT: A 4-day history of nausea, with diarrhea with blood, general malaise, and a fever of 102.7, and complained of his bottom hurting. HISTORY OF PRESENTING ILLNESS: This is a 69-year-old male, who presented to [facility], with complaints of a 4-day history of generalized malaise, nausea, diarrhea with some blood in the stool. He has reported a fever, with the highest being 102.7. He states that his bottom hurts. When the ER physician went to check for occult blood stool he was noted to have some drainage from his bottom that was grayish- yellow liquid from an unnoticed fissure. He had perineal tenderness, erythema, and swelling that extends to just distal of the scrotum. The stool was positive for occult blood. We did a CT of the pelvis that was read as an impression of Basil's gangrene, with extensive soft tissue gas in the inferior perineum mostly below the pelvic diaphragm extending into the inferior-posterior buttock bilaterally and forward to the level of the scrotum, so he will be admitted for further evaluation and treatment with consultation with Urology and General Surgery, and be admitted for further evaluation and treatment. PAST MEDICAL HISTORY: Diabetes type 2, small-bowel obstruction, CAD, hypertension, hyperlipidemia, atrial fibrillation, GERD, and left hemiparesis. PAST SURGICAL HISTORY: Colectomy, with colostomy placement and reversal, coronary artery bypass graft, cholecystectomy, and appendectomy. FAMILY HISTORY: Mother and father both passed of complications of congestive heart failure. Mom also had diabetes and hypertension. SOCIAL HISTORY: Currently lives alone. Denies any tobacco, alcohol or illicit drug use. ALLERGIES: No known drug allergies. HOME MEDICATIONS: Home medications will be held at this time due to his NPO status for possible upcoming surgery, but we will review those and restart when appropriate. LABORATORY DATA: White blood cell count of 13.57, hemoglobin 9.1, hematocrit 26.4, platelets 299,000. Sodium 132, potassium 3.6, chloride 99, CO2 19, BUN of 34, creatinine 1.5, with a baseline from 1.6 to 2, glucose 194. CT of pelvis showed Basil's gangrene. REVIEW OF SYSTEMS: He was positive for fever and chills. Denied any blurred vision, dizziness, chest pain, coughing, shortness of breath. Denied any abdominal pain. Was positive for nausea. No vomiting. Was positive for diarrhea, with blood in his stool. Pain in his bottom area. Denied any burning or hurting with urination. PHYSICAL EXAMINATION: VITALS: On arrival he had a temperature of 98.5 degrees, pulse 70, respirations 18, blood pressure 137/61, saturating 98% on room air. GENERAL: This is a 69-year-old male who is lying in the bed and answers questions appropriately. HEENT: Normocephalic, atraumatic. Normal ENT inspection. Oropharynx and nares are clear. Pupils are equal, round, and reactive to light accommodation. Extraocular movements are intact. NECK: Normal inspection. Normal range of motion. LUNGS: Clear to auscultation bilaterally with equal lung expansion and chest wall movement. HEART: Regular rate and rhythm. No murmurs, rubs, or gallops. ABDOMEN: Soft, nontender, nondistended. Bowel sounds are present x4 quadrants. GENITOURINARY: He had some perineal tenderness and erythema, with edema that extended just distal to the scrotum. He had some rectal tenderness and when parting his cheeks to perform his rectal exam, he had grayish-yellow liquid, again, pouring from a previously unnoticed fissure. MUSCULOSKELETAL: He had 5/5 strength x4 extremities. NEUROLOGIC: The cranial nerves 2-12 appear grossly intact. ASSESSMENT: 1. Basil's gangrene. 2. Perirectal abscess. 3. Leukocytosis secondary to #1 and 2. 4. Hyponatremia. 5. Diabetes type 2, with hyperglycemia. 6. Coronary artery disease, history of. PLAN: He will be admitted to the surgical unit. We will consult Urology. Surgery saw the patient in the emergency room and is deferring to Urology initially. Held NPO. Placed on SCDs for DVT prophylaxis. We will start him on Zosyn 3.375 g IV q.6, vancomycin per pharmacy protocol, normal saline at 75 mL an hour. He has an indwelling Jaimes catheter. Recheck CBC and BMP in the a.m., and further orders after seen by attending and medical economics consultant. Dictated by SONNY Oakes for Cholo Echavarria MD cc: SONNY Oakes MD Hiteshri S. Bhavsar, MD I agree with most components of history, physical, assessment and plan. A separate addendum has been dictated. MTDD
--- NOTE | 2019-05-18 13:06 | HISTORY AND PHYSICAL ---
ADDENDUM TO HISTORY AND PHYSICAL DICTATED BY NURSE PRACTITIONER: I agree with most components of history and physical, assessment, and plan. In brief, Mr. 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 In the emergency room he was found to have leukocytosis and CT scan of the abdomen and pelvis evidence of Basil gangrene so the hospitalist team was consulted for further management. The patient denies noticing anything unusual in his stools. He states occasionally he may have noticed some blood, but he is not sure about it. He lives by himself and he uses cane or walker to walk. He denies any perineal trauma. He does have uncontrolled diabetes. VITALS: Temperature of 98.5 degrees, pulse 69, respiratory rate 13, blood pressure 120/54, saturating 100% on room air. PHYSICAL EXAMINATION: Not in acute distress oral cavity is moist. Air entry bilaterally equal. No wheeze, rhonchi, crackles S1, S2 normal. No murmur, rub, or gallop. Abdomen: Soft. Lower abdominal infraumbilical scar of laparotomy. He has mild tenderness on the right lower quadrant. Active bowel sounds. No lower extremity edema. Perineal examination: He has significant induration and edema affecting the perineum. He also has what appears to be mild scrotal edema and hydrocele. On the buttock examination he has pus like discharge coming out from buttock on pressure with induration. LABS: Suggestive of leukocytosis, normocytic anemia, normal platelet count. Hyponatremia, hypochloremia, chronic kidney disease stage 3. He also has mild transaminitis. MICROBIOLOGY: No new data. His blood cultures are in lab. IMAGING: Pelvic CT had Basil gangrene. ASSESSMENT AND PLAN: 1. Sepsis due to Basil gangrene. 2. Insulin-dependent diabetes mellitus type 2, which is uncontrolled. 3. History of coronary artery disease status post coronary artery bypass grafting. 4. History of colonic polyp, benign, status, post colectomy. 5. History of chronic kidney disease stage 3. 6. History of suspected right hemispheric cerebrovascular accident and residual some left hemiparesis. PLAN: I will start patient on intravenous fluids, intravenous vancomycin and intravenous Zosyn. He would need surgical evaluation for Basil gangrene. I will also keep him on close fingerstick monitoring and give him insulin for optimal blood glucose control. Plan of care discussed with the patient's multiple family members at bedside. Their questions have been answered. cc: Cholo Echavarria MD
[2019-05-18] MEDS ORDERED: VANCOMYCIN IV PER PHARMACY MISC SCH (13:22)
[2019-05-18] MEDS ORDERED: ZOFRAN IV PRN (13:22)
[2019-05-18] MEDS ORDERED: VERSED ONE (14:54)
[2019-05-18] MEDS ORDERED: FENTANYL ONE (14:55)
[2019-05-18] MEDS ORDERED: DIPRIVAN 1% ONE (14:55)
[2019-05-18] MEDS ORDERED: ZOSYN 3.375 GM in NS 50 ML IV SCH (15:00)
[2019-05-18] MEDS ORDERED: HUMALOG SUBQ SCH (16:00)
[2019-05-18] MEDS ORDERED: EPHEDRINE ONE (16:48)
[2019-05-18] MEDS ORDERED: QUELICIN (DOSE) ONE (16:48)
[2019-05-18] MEDS ORDERED: XYLOCAINE-MPF 2% ONE (16:48)
[2019-05-18] MEDS: DILAUDID ONE ×2 (17:30→17:42)
--- NOTE | 2019-05-18 18:53 | CONSULTATION ---
DATE OF CONSULTATION: 05/18/2019 REFERRING PHYSICIAN: Dr. Aguilera in the ER. REASON FOR CONSULTATION: Possible Basil gangrene. HISTORY OF PRESENT ILLNESS: This is a 69-year-old male with a significant history of poorly controlled diabetes mellitus, who, per his family who is present at bedside, has recently had sugars running in the 800 range. He presents with a several-day history of nausea, malaise, fevers up to 102 and discomfort in his buttocks. He also reports associated blood in the stool. During examination and evaluation by the ER physician, he was found to have purulent drainage around his anus. At that time he was found to have perineal tenderness and erythema. He underwent CT scan of his pelvis which reported extensive soft tissue gas in the inferior perineum extending into the posterior buttock with extension above the urogenital diaphragm along the right side of the rectum toward the right side of the prostate. The patient currently denies urinary symptoms. He states that prior to presentation he had occasional hesitancy and urgency and nocturia but that has been stable for over a year. He denied gross hematuria, dysuria, discharge from his urethra flank pain. He states currently he is having discomfort and drainage from his "rear-end." PAST MEDICAL HISTORY: Diabetes, diverticulitis, hypertension, coronary artery disease, atrial fibrillation, hyperlipidemia, GERD. PAST SURGICAL HISTORY: Coronary artery bypass grafting, cholecystectomy, appendectomy colectomy with diverting colostomy followed by colostomy reversal. SOCIAL HISTORY: Denies tobacco, alcohol or illicit drug use. FAMILY HISTORY: Negative for malignancies. ALLERGIES: No known drug allergies. HOME MEDICATIONS: Lisinopril, Protonix, amiodarone, metoprolol, aspirin, insulin, Lipitor, folic acid. REVIEW OF SYSTEMS: Reviewed, and 12 systems negative with exception of the HPI. PHYSICAL EXAMINATION: T was 98.5, P 70, BP 137/61.General: No acute distress. Pleasant male, surrounded by family at bedside. HEENT: Normocephalic, atraumatic. Cardiovascular: Regular rate and rhythm during my examination. Pulmonary: Bilateral breath sounds. Abdomen: Nontender, nondistended. No hepatosplenomegaly noted. He has a large ventral abdominal scar just below his xiphoid process extending down to his pubis. No peritoneal signs. No involuntary guarding. Back: No CVA tenderness. : He has a patent meatus, normal penile shaft without masses or edema noted. His scrotal skin is atrophic in appearance. No scrotal edema noted. Testes are atrophic bilaterally without masses or swelling noted. His perineal integrity is intact from the midline anteriorly. The posterior perineum is beefy red with quite a bit of edema. It appears that he may have a small amount of crepitus. There is no evidence of skin breakdown or drainage noted. The patient just had a rectal examination by Dr. Rouse, and was deferred rectal examination by me. Upon brief examination of his buttock, he has grayish purulent material on the inferior base of his anus, but I do not see a specific opening, although the patient just had a bowel movement, and hence this was mixed with feces. Dermatologic: No obvious skin rashes. Neurologic: Alert orient x3. Neuropsychiatric: Appropriate mood and affect. PERTINENT LABS: His white cell count 14,000, his creatinine is 1.5, his glucose is 186. PERTINENT IMAGES: CT pelvis: Per HPI. ASSESSMENT/PLAN: A 69-year-old male, with posterior perineal and perirectal soft tissue infection with reported gas per CT scan which was read as Basil gangrene. I have discussed with the patient and his family that on the CT scan there appears to be extension of the soft tissue inflammation toward the right side of the prostate. During examination of his genitals and perineum, I do not appreciate any anterior perineal or scrotal or penile involvement. He does have crepitus and erythema on the posterior perineum as well as around his buttocks which is likely consistent with the disease either origination in the posterior peritoneum and spreading toward the rectum, or vice versa. I have discussed with the family that I would be happy to assist general surgery when they decide to take the patient to the operating room, but I do not expect to have to make any incisions on his anterior perineal area or along his scrotum at this time. I have personally contacted Dr. Rouse with General Surgery and discussed the situation with him. I have explained to him that I feel that the patient would benefit more from General Surgery evaluation and treatment rather than urologic evaluation treatment, although I am unavailable to help if needed. He agreed. PLAN: 1. Agree with Jaimes catheter drainage for now, although recommend removing it when fine with primary team so as to decrease risk of UTI. 2. He will go to the operating room per Dr. Rouse, and I will be happy to assist in any way that I can, although again at this point I did not appreciate his scrotum, penile or inguinal area needing any surgical attention. 3. Agree with broad-spectrum antibiotic recommendations. 4. Thanks for the consultation. cc: Axel Kincaid MD
--- NOTE | 2019-05-18 18:57 | OPERATIVE NOTE ---
PROCEDURE DATE: 05/18/2019 PREOP DIAGNOSIS: Necrotizing soft tissue infection of the perineum and perianal area. POSTOP DIAGNOSIS: Necrotizing soft tissue infection of the perineum and perianal area. PROCEDURE: 1. Incision and drainage of extensive perirectal horseshoe abscess and perineal abscess. 2. Incision and debridement of skin, subcutaneous tissue, muscle and fascia of the perineum measuring approximately 50 square centimeters. SURGEON: Nirmal Rouse MD. INFORMATION MANAGEMENT OFFICER: None. ANESTHESIA: General endotracheal. FINDINGS: Wound measured 10.5 cm x 4.5 x 5 cm. COMPLICATIONS: None at time this dictation. ESTIMATED BLOOD LOSS: 50 mL. SPECIMEN REMOVED: Necrotic tissue and cultures. BRIEF HISTORY: 69-year-old gentleman with extensive surgical history presented with pain for several days. He had a CT scan after having what appeared to be perirectal abscess that showed extensive soft tissue issue to his perineum. It was felt that he needed debridement. The risks, benefits, and alternatives were discussed. Risks include but not limited to bleeding, infection, risk of damage to other structures discussed, all questions answered. DESCRIPTION OF PROCEDURE: After informed consent was obtained patient brought to the operative theater, transferred op, placed supine position. General endotracheal anesthesia was then performed without complication. The patient was repositioned to have his legs in candy-cane. The perineum and perirectal area prepped, draped sterile fashion. There was some spontaneous drainage noted but we were able to prep the area in sterile fashion. After a formal time-out confirming patient and procedure we turned our attention to the perineum. There was an area spontaneously draining I incised, opened it up and drained some more purulence. Using my fingers I was able to probe the area. The initial spontaneous drainage was on the right side posterior to the anus and drained and seemed to connect around posterior like a horseshoe abscess around to the left side. I made a counter incision the left side encountered a significant amount of purulence. This area probed back to the original right side and anterior the perineum. I made another counterincision in the perineum and drained some purulence and then connected to on the left side to make 1 large incision. Upon doing this we encountered some necrotic muscle, skin and subcutaneous tissue which I sharply debrided and excised with scissors. Once we debrided back enough tissue we continued probe to break up all the areas of loculation, it extended pretty close to the rectum. I did a digital rectal exam. It did not seem to go through the rectum but it comes up close to the rectum and above the levators. At this point I elected to irrigate the area out, we irrigated out with Vashe and the pulse lavage. I did not encounter any more purulence but I think he probably needs some more extensive debridements at future operations. I placed a Vashe soaked gauze to the area and tunneled it with the plan of him going back to the operating room tomorrow for 2nd look. He may need multiple debridements. He may even need a diversion from his fecal stream to the area. cc: Nirmal Rouse MD
[2019-05-18] MEDS ORDERED: VANCOMYCIN 1.7 GM in NS 250 ML IV SCH (21:00)
[2019-05-18] MEDS: PERIDEX MT SCH (21:42)
[2019-05-18] MEDS: MORPHINE IV PRN (21:42)
[2019-05-19 00:02] LABS: URINE SOURCE CATH
[2019-05-19 00:15] LABS: BILIRUBIN URINE NEGATIVE (NEGATIVE); BLOOD URINE SMALL (NEGATIVE); COLOR YELLOW; GLUCOSE URINE NEGATIVE (NEGATIVE); KETONE URINE NEGATIVE (NEGATIVE); LEUKOCYTES URINE MODERATE (NEGATIVE); NITRITE URINE NEGATIVE (NEGATIVE); PH URINE 5.5; PROTEIN URINE 50 mg/dL (NEGATIVE); SP GRAVITY URINE 1.042; TURBIDITY URINE HAZY (CLEAR); UROBILINOGEN URINE NORMAL (NORMAL)
[2019-05-19 00:32] LABS: UR EPITHELIAL CELLS <10 /HPF (<10); URINE BACTERIA NEGATIVE /HPF; URINE RBC <10 /HPF (<10); URINE WBC TNTC /HPF (<10)
[2019-05-19 00:57] LABS: URINE CASTS NONE SEEN; URINE SMALL ROUND CELLS NONE SEEN
[2019-05-19 00:58] LABS: URINE YEAST PRESENT
[2019-05-19 01:01] LABS: URINE CRYSTALS TRIPLE PHOS PRESENT
[2019-05-19] MEDS: NS 1,000 ML IV SCH ×2 (04:55→22:53)
[2019-05-19] MEDS: ZOSYN 3.375 GM in NS 50 ML IV SCH ×5 (04:56→23:00)
[2019-05-19] MEDS: MORPHINE IV PRN ×2 (05:06→12:28)
[2019-05-19] MEDS: ZOFRAN IV PRN (05:07)
[2019-05-19] MEDS ORDERED: VANCOMYCIN IV PER PHARMACY MISC SCH (05:15)
--- NOTE | 2019-05-19 05:59 | GENERAL SURGERY PROGRESS NOTE ---
DATE: 05/19/2019 SUBJECTIVE: Patient seems to be doing okay, and feeling a little bit better. OBJECTIVE: Vital Signs: Patient is currently afebrile. His vital signs are stable. General: No acute distress. Cardiovascular: Regular rate and rhythm. Lungs: Grossly clear. Abdomen: Soft, nontender, and nondistended. Perineal area packing removed. Area looks okay. He will still need further debridement. ASSESSMENT AND PLAN: A 69-year-old gentleman status post incision and debridement, and drainage of necrotizing soft tissue infection of the perirectal perineal area. Postoperative state at this time. Given the extensive nature of this, we will plan on taking him back to the operating room today. He is already NPO. Discussed with him this will also need to consider in the near future diverting colostomy or diverting loop ileostomy to divert the fecal stream. We will try to get his medical records and his operative report from [place]. cc: Nirmal Rouse MD
[2019-05-19] MEDS ORDERED: VANCOMYCIN 1.7 GM in NS 250 ML IV SCH (06:00)
[2019-05-19] MEDS ORDERED: HUMALOG SUBQ SCH (07:00)
[2019-05-19 07:07] LABS: BASO# 0.01 X1000 (0.0-0.2); BASO% 0.1 % (0.0-0.8); EOS# 0.02 X1000 (0.0-0.7); EOS% 0.2 % (0.0-10.0); HEMATOCRIT 23.5 % (42.0-52.0); HEMOGLOBIN 7.8 g/dL (14.0-18.0); IMM GRAN# 0.07 X1000 (0.0-0.04); IMM GRAN% 0.6 % (0.0-0.5); LYMPH# 0.78 X1000 (1.2-3.4); LYMPH% 6.9 % (20.5-51.1); MCH 29.2 PG (27-31); MCHC 33.2 g/dL (33-37); MONO# 0.84 X1000 (0.11-0.59); MONO% 7.4 % (1.7-9.3); MPV 8.4 FL (7.4-10.4); NEUT# 9.62 X1000 (1.4-6.5); NEUT% 84.8 % (42.2-75.2); PLT 250 X1000 (130-400); RBC 2.67 XMIL (4.7-6.1); RDW 14.6 % (11.5-14.5); WBC 11.34 X1000 (4.8-10.8)
[2019-05-19 07:24] LABS: CALCIUM 7.4 mg/dL (8.8-10.2); CREATININE 1.8 mg/dL (0.7-1.2); POTASSIUM 3.9 mmol/L (3.5-5.1)
[2019-05-19 07:54] LABS: BANDS 8 % (0-1); LYMPHS 12 % (21-51); MONO 4 % (1-9); SEGS 76 % (42-75)
--- NOTE | 2019-05-19 09:26 | PROGRESS NOTE ---
DATE: 05/19/2019 SUBJECTIVE: Mr. Solorzano reports feeling somewhat better. He underwent incision and drainage of a perirectal abscess and debridement of perineum. He denies tenderness in the scrotum or his penis. He reports mild discomfort from the Jaimes catheter. OBJECTIVE: T 97.8 degrees, P 63, BP 110/51. General: No acute distress. Abdomen: Nontender, nondistended. Genitourinary: Jaimes catheter in place, draining straw-colored urine. His penile shaft and scrotum showed no evidence of edema or erythema. His anterior perineum was unremarkable as well. He had packing posteriorly and I did not examine it at the time of this visit. There is no evidence of crepitus or fluctuance on the anterior perineum, or scrotum, or the penis. Pertinent Laboratory Data: White cell count is 11,000. Creatinine is 1.8. Pertinent Microbiology: None. 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 Again, he does not appear to have involvement of his genitals. I have discussed with the patient that at this time, I do not see that urologic intervention would help him in any way. From review of records, he is going for a second look in the operating room and I have re-explained to the patient that I would be available should my help be needed. Otherwise, I would advise for his catheter to come out as soon as okay with primary team, to decrease the risk of catheter-associated urinary tract infection. PLAN: 1. No urologic intervention needed at this time. 2. Please call if questions are needed. cc: Axel Kincaid MD
--- NOTE | 2019-05-19 11:02 | PROGRESS NOTE ---
DATE: 05/19/2019 INTERVAL HISTORY: He underwent surgical debridement with incision and drainage of extensive perirectal horseshoe abscess, perineal abscess, and an about 50 square cm area yesterday. Then, he was sent back to the floor. Today, he is planned to undergo another surgical debridement and possibly loop ileostomy or colostomy today. SUBJECTIVE: He is denying any complaints. I had an extensive discussion with him and his family member at bedside about the really bad nature of his abscess. The risk associated with surgery, the fact that he previously had a bypass surgery and coronary artery disease, and the risk associated with spread of infection. I answered all of their questions. I also discussed with him about his chronic kidney disease. VITALS: Temperature 97.8 degrees, pulse 60, respiratory rate 16, and blood pressure 110/51. He is saturating 98% room air. PHYSICAL EXAMINATION: General: Not in any acute distress. HEENT: Oral cavity is moist. Lungs: Air entry bilaterally equal. No wheeze, rhonchi, or crackles. Cardiovascular: S1, S2 normal. No murmur or gallop. Abdomen: Soft. Lower abdominal infraumbilical scar of previous laparotomy. He has mild tenderness on the right lower quadrant. Active bowel sounds. Extremities: No lower extremity edema. He has a packing of his wounds in the perineal region. On my previous examination, he had pus coming out. LABORATORY: He has normocytic anemia and normal platelet count. His electrolytes are suggestive of chronic kidney disease stage 3. His urinalysis has multiple WBCs. MICROBIOLOGY: Abscess has gram-negative rods. The culture is pending. Stool occult blood test was also positive. Blood cultures are in lab. IMAGING: No new imaging today. ASSESSMENT AND PLAN: 1. 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 Follow up final culture, blood culture and wound culture results. Continue intravenous fluids, intravenous vancomycin and intravenous Zosyn. General surgical team planning another debridement. Noticeably, previously, he had colectomy in early 2018, and had required colostomy briefly. 2. Insulin-dependent diabetes mellitus type 2, uncontrolled. Continue blood sugar monitoring every 6 hours as well as sliding scale insulin. 3. History of coronary artery disease status post CABG in 2013. Continue his home aspirin, atorvastatin, and metoprolol with holding parameters and amiodarone, the indication of which is unclear to me though he denies known history of atrial fibrillation. 4. Chronic kidney disease stage 3 and anemia of chronic anemia. I will follow up with iron panel if it was not performed before, and continue folic acid. 5. 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 Currently, he appears to be at his baseline. DISPOSITION: Continue to monitor patient inside hospital. Plan of care discussed with him and his family at bedside. Their questions have been answered. cc: Cholo Echavarria MD
[2019-05-19 11:23] LABS: IRON SATURATION 10 %; TIBC 115 ug/dL; TOTAL IRON 11 ug/dL (53-167); UNBOUND IRON 104 ug/dL (112-346)
[2019-05-19 11:39] LABS: FERRITIN 560 ng/mL (30-400)
[2019-05-19] MEDS: PERIDEX MT SCH ×2 (12:28→21:03)
[2019-05-19] MEDS ORDERED: INSULIN PEN NEEDLES ONE (12:37)
[2019-05-19] MEDS ORDERED: ZOFRAN ONE (15:58)
[2019-05-19] MEDS: PROTONIX PO SCH (16:00)
[2019-05-19] MEDS: HUMALOG SUBQ SCH ×3 (16:01→23:40)
[2019-05-19] MEDS: HUMULIN 70/30 SUBQ SCH (16:01)
[2019-05-19] MEDS ORDERED: MORPHINE ONE (16:01)
[2019-05-19] MEDS: CORDARONE PO SCH (16:02)
[2019-05-19] MEDS: FOLIC ACID PO SCH ×2 (16:02→21:03)
[2019-05-19] MEDS: DILAUDID ONE ×2 (16:33→16:36)
--- NOTE | 2019-05-19 20:09 | OPERATIVE NOTE ---
PROCEDURE DATE: 05/19/2019 PREOPERATIVE DIAGNOSIS: Necrotizing soft tissue infection of the perineum and perirectal area. POSTOPERATIVE DIAGNOSIS: Necrotizing soft tissue infection of the perineum and perirectal area. PROCEDURE: Incision and debridement of skin, subcutaneous tissue, muscle and fascia approximately 80 cm2. SURGEON: Nirmal Rouse MD ONLINE COMMUNICATIONS MANAGER: None. ANESTHESIA: General endotracheal. FINDINGS: The wound now measures 13 x 6 cm. COMPLICATIONS: None at time of dictation. ESTIMATED BLOOD LOSS: 20 mL SPECIMEN: Removed tissue. BRIEF HISTORY: A 69-year-old gentleman with multiple medical comorbidities, who had a necrotizing soft tissue infection. We debrided it yesterday in the operating room. We thought we need to second-look. The risks, benefits and alternatives were discussed. All questions answered. DESCRIPTION OF PROCEDURE: After informed consent was obtained, the patient was brought to the operating theater, transferred to the operating table, and placed in supine position. General endotracheal anesthesia was then performed without complication. A formal time-out was then performed, confirming patient, date and procedure. All were in agreement. At that time attention was given to the patient. He was repositioned in the candy canes in lithotomy. The perineum was prepped and draped in sterile fashion after the previous packing was removed. Upon doing this, we encountered the wound. There was some still necrotic tissue. We prepped and draped it. Using scissors, a scalpel and a heavy pickup, we were able to sharply excise and debride skin, subcutaneous tissue, fascia and muscle measuring 80 cm2. The wound itself travels little more toward the scrotum and more anteriorly around the rectum. It did not seem like there was a connection between the rectum in this area on digital rectal exam. Overall there had been some slight improvement, but there still was necrotic tissue. Again, we debrided it and drained as much purulence as possible. I did not feel any crepitus anywhere further. We placed Vashe packing into the wound and placed a sterile dressing. The patient tolerated the procedure well. We will plan on taking him back to the operating room tomorrow, and likely diverting him with an ostomy. cc: Nirmal Rouse MD
[2019-05-19] MEDS ORDERED: LOPRESSOR PO SCH (21:00)
[2019-05-19] MEDS: LIPITOR PO SCH (21:04)
[2019-05-20] MEDS: ZOSYN 3.375 GM in NS 50 ML IV SCH ×2 (05:50→10:46)
[2019-05-20] MEDS: MORPHINE IV PRN ×3 (05:54→22:58)
[2019-05-20] MEDS: HUMALOG SUBQ SCH ×2 (05:57→15:04)
[2019-05-20] MEDS: PROTONIX PO SCH (06:01)
--- NOTE | 2019-05-20 06:48 | GENERAL SURGERY PROGRESS NOTE ---
DATE: 05/20/2019 SUBJECTIVE: Patient says he is feeling better. OBJECTIVE: Vital Signs: Patient is currently afebrile. Vital signs are stable. General: No acute distress. Cardiovascular: Regular rate and rhythm. Lungs: Grossly clear. Abdomen: Soft and nontender. Perineal area with dressing intact. ASSESSMENT AND PLAN: A 69-year-old gentleman with necrotizing soft tissue infection of the perineum and perirectal area. Necrotizing soft tissue infection. At this time, we will plan on debridement again in the operating room, and likely diverting colostomy versus ileostomy depending on what his intra- abdominal appearance looks like. Plan on doing the procedure this afternoon. Discussed with the patient risks, benefits, and alternatives. He is aware. We will proceed. cc: Nirmal Rouse MD MTDD
[2019-05-20 07:48] LABS: BASO# 0.01 X1000 (0.0-0.2); BASO% 0.1 % (0.0-0.8); EOS# 0.13 X1000 (0.0-0.7); EOS% 1.2 % (0.0-10.0); HEMATOCRIT 23.5 % (42.0-52.0); HEMOGLOBIN 7.7 g/dL (14.0-18.0); IMM GRAN# 0.06 X1000 (0.0-0.04); IMM GRAN% 0.5 % (0.0-0.5); LYMPH# 0.71 X1000 (1.2-3.4); LYMPH% 6.5 % (20.5-51.1); MCH 29.2 PG (27-31); MCHC 32.8 g/dL (33-37); MONO# 0.65 X1000 (0.11-0.59); MPV 8.4 FL (7.4-10.4); NEUT# 9.35 X1000 (1.4-6.5); NEUT% 85.7 % (42.2-75.2); PLT 279 X1000 (130-400); RBC 2.64 XMIL (4.7-6.1); RDW 14.9 % (11.5-14.5); WBC 10.91 X1000 (4.8-10.8)
[2019-05-20 08:14] LABS: BANDS 8 % (0-1); LYMPHS 14 % (21-51); SEGS 78 % (42-75)
[2019-05-20 08:35] LABS: CALCIUM 7.7 mg/dL (8.8-10.2); CREATININE 2.5 mg/dL (0.7-1.2); MAGNESIUM 2.1 mg/dL (1.5-2.7); POTASSIUM 4.3 mmol/L (3.5-5.1)
[2019-05-20] MEDS ORDERED: NS 500 ML IV ONE (13:52)
[2019-05-20] MEDS: NS 1,000 ML IV SCH (15:04)
[2019-05-20] MEDS: ASPIRIN PO SCH (15:05)
[2019-05-20] MEDS: PERIDEX MT SCH ×2 (15:06→23:06)
[2019-05-20] MEDS: FERROUS SULFATE PO SCH (15:10)
[2019-05-20] MEDS: HUMULIN 70/30 SUBQ SCH (15:10)
[2019-05-20] MEDS: FOLIC ACID PO SCH ×2 (15:10→23:05)
[2019-05-20] MEDS: CORDARONE PO SCH (15:11)
[2019-05-20] MEDS ORDERED: HURRICAINE SPRAY (DOSE) ONE (15:58)
[2019-05-20] MEDS ORDERED: STERILE WATER INJ. ONE (16:01)
[2019-05-20] MEDS ORDERED: XYLOCAINE-MPF 2% ONE (16:01)
[2019-05-20] MEDS ORDERED: ROBINUL ONE ×2 (16:01→18:05)
[2019-05-20] MEDS ORDERED: NORCURON ONE (16:01)
[2019-05-20] MEDS ORDERED: QUELICIN (DOSE) ONE (16:01)
[2019-05-20] MEDS ORDERED: FENTANYL ONE (16:02)
[2019-05-20] MEDS ORDERED: DIPRIVAN 1% ONE (16:02)
[2019-05-20] MEDS ORDERED: EPHEDRINE ONE (16:59)
[2019-05-20] MEDS ORDERED: OFIRMEV 1000 MG/ISOTONIC SOLN 1,000 MG/100 ML BOTTLE ONE (17:39)
[2019-05-20] MEDS ORDERED: ZOFRAN ONE (17:57)
[2019-05-20] MEDS ORDERED: NEOSTIGMINE ONE (18:04)
--- NOTE | 2019-05-20 19:34 | PROGRESS NOTE ---
DATE: 05/20/2019 INTERVAL HISTORY: No acute events overnight. He is about to go for surgery. He denies any new complaints. Family is at bedside. I discussed with them about exam findings, worsening kidney function, low hemoglobin. I answered all of their questions. Currently, patient denies any chest pain or shortness of breath. He is complaining of some soreness in the buttock region. VITAL SIGNS: He has been afebrile. Temperature of 97.8 degrees, pulse 58, respiratory rate 16, blood pressure 120/48. He is saturating 100% room air. PHYSICAL EXAMINATION: General: He appears pale, not in any acute distress though. Oral cavity is dry. Lungs: Air entry bilaterally equal. No wheeze, rhonchi, crackles. Cardiovascular: S1, S2 normal. No murmur, rub, or gallop. Abdomen: Soft. Infraumbilical scar of previous laparotomy. No tenderness. Active bowel sounds. Extremities: No lower extremity edema. His buttocks have packing of wounds which are all drained and soaked at the moment. Genitourinary: He has a urine catheter. Input and output suggest 250 mL since the morning. LABS: Suggestive of decreased leukocytosis, decrease in hemoglobin, normal platelet count. He has hyponatremia. He has low bicarbonate and acute kidney injury. He also has hyperglycemia. MICROBIOLOGY: Previous wound culture is growing gram-negative rods. Blood culture has not shown any growth to date. ASSESSMENT AND PLAN: 1. 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 Follow up final culture results. Continue intravenous Zosyn, intravenous fluids. Surgical team is planning a repeat debridement and possibly a colostomy or end ileostomy today. 2. Acute kidney injury on chronic kidney disease stage 3. Continue intravenous fluids. I will stop his vancomycin. I will continue Jaimes catheter for close input and output monitoring. He may have experienced an episode of hypotension during surgery or vancomycin could have contributed to it. In the future, I may consider consulting Nephrology. 3. Anemia of chronic disease as well as acute blood loss anemia due to gastrointestinal bleed. I will give him 1 unit of blood transfusion and we will keep a close eye over her his CBC. We will keep goal of hemoglobin more than 8. 4. Insulin-dependent diabetes mellitus type 2. Continue his sliding scale insulin and increase the dose to moderate. I will also keep him on NPH sliding scale and we will increase the dose as tolerated. He is currently nothing by mouth. 5. History of coronary artery disease status post coronary artery bypass grafting. Continue home statin. I am holding his home aspirin and metoprolol. I am continuing him on home amiodarone. 6. Others: He does have prior history of cerebrovascular accident and dementia and he appears to be currently at his baseline. However, he does not appear to have memory impairment on my evaluation at the moment. DISPOSITION: I informed the patient and his family members about his high morbidity and mortality risk. Family had previously expressed palliative care to 1 of the other team members, which I would request. Plan of care discussed with them. Their questions have been answered. cc: Cholo Echavarria MD
--- NOTE | 2019-05-20 22:49 | OPERATIVE NOTE ---
PROCEDURE DATE: 05/20/2019 PREOPERATIVE DIAGNOSIS: Necrotizing soft tissue infection of the perineum and perirectum. POSTOP DIAGNOSIS: Necrotizing soft tissue infection of the perineum and perirectum. PROCEDURE: 1. Exploratory laparotomy with lysis of adhesions with a diverting loop ileostomy. 2. Dressing change under anesthesia. SURGEON: Nirmal Rouse MD. NEWSCAST PRODUCER: Dr. Duran. Dr. Duran assisted with the loop ileostomy part. His presence was crucial to completion of the case. ANESTHESIA: General tracheal. OPERATIVE FINDINGS: Scar tissue noted. Wound itself was improving. COMPLICATIONS: None at time of dictation. EBL: 250 mL. SPECIMENS REMOVED: None. BRIEF HISTORY: A 69-year-old gentleman with complicated wound to his perineum and perirectal. To facilitate healing, I thought we needed to do a diverting loop ileostomy. The risks, benefits, and alternatives were discussed. All questions answered. DESCRIPTION OF PROCEDURE: After informed consent was obtained, the patient was brought to the operative theater, transferred to the operative table, placed supine position. General endotracheal anesthesia was then performed without complication. A formal time-out was then performed confirming patient, date, and procedure. All were in agreement. At that time, attention was given to the abdomen. We made a standard midline incision through his previous scar to enter into the abdomen. He had a significant amount of adhesions and scar tissue. We did meticulous dissection to free up the small bowel. The best we could gather from the anatomy after his multiple abdominal surgeries is that he had almost a total abdominal colectomy with an ileorectal anastomosis. We examined the abdomen multiple times, ran the small bowel, but this was the best we could identify. It looked like there was anastomosis with the small bowel down to the rectum. Given this, we elected to do a diverting loop ileostomy. He had previously been marked and had an area in the right lower quadrant. We elevated this with a Tello clamp, made a incision and carried it all the way down to the fascia to open up the fascia 2 fingerbreadths in size. We then brought the loop ileostomy up through this, closed the midline incision and then matured the ostomy with a T-bar. We placed jose in the skin and closed the fascia with looped PDS. We matured the ostomy with 3-0 Vicryl. We then placed sterile dressings on. We then turned our attention to the perineum, removed the previous packing. The wound itself was improving. There was not as much necrotic tissue. We did not have to do any sharp debridement. We then placed another Vashe of Kerlix into the wound and placed a sterile dressing. The patient tolerated the procedure well and was transferred back to recovery room. cc: Nirmal Rouse MD
[2019-05-20] MEDS: ZOFRAN IV PRN (22:58)
[2019-05-20] MEDS: LIPITOR PO SCH (23:06)
[2019-05-21] MEDS: HUMALOG SUBQ SCH ×5 (00:01→22:58)
[2019-05-21] MEDS: ZOSYN 3.375 GM in NS 50 ML IV SCH ×2 (01:19→06:37)
[2019-05-21] MEDS: MORPHINE IV PRN ×6 (01:30→18:15)
[2019-05-21] MEDS ORDERED: BLISTEX MEDICATED BERRY LIP BALM TOP PRN (06:11)
[2019-05-21] MEDS: NS 1,000 ML IV SCH ×3 (06:38→21:55)
[2019-05-21] MEDS: PROTONIX PO SCH (06:45)
[2019-05-21 07:48] LABS: BASO# 0.01 X1000 (0.0-0.2); BASO% 0.1 % (0.0-0.8); EOS# 0.01 X1000 (0.0-0.7); EOS% 0.1 % (0.0-10.0); HEMATOCRIT 27.6 % (42.0-52.0); HEMOGLOBIN 8.8 g/dL (14.0-18.0); IMM GRAN# 0.14 X1000 (0.0-0.04); LYMPH# 0.61 X1000 (1.2-3.4); LYMPH% 4.1 % (20.5-51.1); MCH 28.6 PG (27-31); MCHC 31.9 g/dL (33-37); MCV 89.6 FL (81-99); MONO# 0.64 X1000 (0.11-0.59); MONO% 4.4 % (1.7-9.3); MPV 8.3 FL (7.4-10.4); NEUT# 13.29 X1000 (1.4-6.5); NEUT% 90.3 % (42.2-75.2); PLT 362 X1000 (130-400); RBC 3.08 XMIL (4.7-6.1)
[2019-05-21] MEDS ORDERED: VANCOMYCIN 1.7 GM in NS 250 ML IV SCH (08:00)
[2019-05-21 08:04] LABS: CALCIUM 7.3 mg/dL (8.8-10.2); POTASSIUM 4.6 mmol/L (3.5-5.1)
[2019-05-21 08:08] LABS: SEGS 100 % (42-75)
[2019-05-21] MEDS: ZOFRAN IV PRN (08:48)
--- NOTE | 2019-05-21 08:50 | GENERAL SURGERY PROGRESS NOTE ---
DATE: 05/21/2019 SUBJECTIVE: Patient seems to be doing okay. OBJECTIVE: Vital Signs: Patient is currently afebrile. His vital signs stable. General: No acute distress. Cardiovascular: Regular rate and rhythm. Lungs: Grossly clear. Abdomen: Soft. Incision with dressing intact. Ostomy appears to be viable. It is weeping serosanguineous. : Jaimes catheter in place with wayne output. LABORATORY: None this morning as of yet. ASSESSMENT AND PLAN: A 69-year-old gentleman, currently postoperative day #1 from exploratory laparotomy with diverting loop ileostomy. 1. Postoperative state at this time continue supportive care. We will continue local wound care for his perineal wound. 2. Necrotizing soft tissue infection of the perineum and perirectal. At this time, we will continue local wound care with Vashe wet-to-dry. Hopefully with the fecal diversion this will help the wound heal. We will continue to follow. cc: Nirmal Rouse MD
[2019-05-21] MEDS: HUMULIN 70/30 SUBQ SCH ×2 (09:08→18:14)
[2019-05-21] MEDS: FOLIC ACID PO SCH ×2 (12:21→21:52)
[2019-05-21] MEDS: FERROUS SULFATE PO SCH (12:21)
[2019-05-21] MEDS: SODIUM BICARBONATE PO SCH ×2 (12:21→21:52)
[2019-05-21] MEDS: CORDARONE PO SCH (12:21)
[2019-05-21] MEDS: ASPIRIN PO SCH (12:21)
[2019-05-21] MEDS: PERIDEX MT SCH ×2 (12:22→21:52)
[2019-05-21] MEDS: LEVAQUIN 500 MG in NS 100 ML IV SCH (14:43)
--- NOTE | 2019-05-21 17:44 | PROGRESS NOTE ---
DATE: 05/21/2019 INTERVAL HISTORY: He underwent exploratory laparotomy with lysis of adhesions with diverting loop ileostomy and dressing change under anesthesia yesterday for necrotizing soft tissue infection of perineum and perirectum, which he tolerated well; however, in the morning time, his repeat kidney function shows further decline and his intravenous fluid rate has been increased, though his urine output has been declining. The patient says initially he was having nausea in the morning time, which is now better. Denies chest pain, shortness of breath, cough, undue abdominal pain. PHYSICAL EXAMINATION: Currently vital signs suggest temperature of 98.3 degrees, pulse 66, respiratory rate 20, blood pressure 118/58. He is saturating 100% on nasal cannula. HEENT: Oral cavity is moist. Lungs: Air entry bilaterally equal. No wheeze, rhonchi or crackles. S1, S2 normal. No murmur or gallop. Abdomen: Soft. There is midline laparotomy scar and ileostomy in the right quadrant, which is not draining anything. He has some kelvin-incisional tenderness. Active bowel sounds. Extremities: No lower extremity edema. Genitourinary: He has urine catheter with minimal output. LABORATORY DATA: Labs suggestive of leukocytosis, appropriate rise of hemoglobin after blood transfusion yesterday, normal platelet count. Unfortunately, increasing BUN and creatinine. MICROBIOLOGY: Wound culture is growing Escherichia coli and Staphylococcus hominis, both of which are sensitive to levofloxacin. ASSESSMENT AND PLAN: 1. 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 Continue intravenous fluids. Change antibiotics to intravenous levofloxacin. Give intravenous morphine as needed for abdominal pain. He has good bowel sounds, and he has been started on liquid diet. 2. Acute kidney injury on chronic kidney disease stage 3 with low bicarbonate. Increase the rate of intravenous fluids and add oral bicarbonate with close input and output monitoring to Jaimes catheter. 3. Hypotension sustained during surgery, as well as use of intravenous vancomycin could have contributed to it. Follow up urine electrolytes. 4. Anemia of chronic disease as well as acute blood loss anemia due to gastrointestinal bleed status post 3 units of PRBC during this hospital admission. Continue to monitor CBC daily. 5. Insulin-dependent diabetes mellitus uncontrolled with hyperglycemia. I will increase the dose of NPH Humulin 70/30 dose today. 6. History of coronary artery disease status post coronary artery bypass graft. Continue home statin. I will consider adding aspirin and metoprolol in the next 24 hours. Continue home amiodarone. 7. Others. He has prior history of cerebrovascular accident. DISPOSITION: I will continue to monitor patient inside the hospital. Plan of care discussed with him. His code status is DNR level 1, which I confirmed with him. He would eventually need rehab, and he agrees with the plan. cc: Cholo Echavarria MD
[2019-05-21 18:30] LABS: UR CREAT RANDOM 97.3 mg/dL (14-26)
[2019-05-21] MEDS: LIPITOR PO SCH (21:52)
[2019-05-22] MEDS: MORPHINE IV PRN ×4 (00:24→15:04)
[2019-05-22] MEDS: NS 1,000 ML IV SCH (06:30)
[2019-05-22] MEDS: PROTONIX PO SCH (06:34)
[2019-05-22] MEDS: HUMALOG SUBQ SCH ×4 (07:00→21:42)
[2019-05-22 07:46] LABS: BASO# 0.06 X1000 (0.0-0.2); BASO% 0.4 % (0.0-0.8); EOS# 0.16 X1000 (0.0-0.7); HEMATOCRIT 25.5 % (42.0-52.0); HEMOGLOBIN 8.3 g/dL (14.0-18.0); IMM GRAN# 0.23 X1000 (0.0-0.04); IMM GRAN% 1.5 % (0.0-0.5); LYMPH# 0.96 X1000 (1.2-3.4); LYMPH% 6.2 % (20.5-51.1); MCH 31.2 PG (27-31); MCHC 32.5 g/dL (33-37); MCV 95.9 FL (81-99); MONO# 0.91 X1000 (0.11-0.59); MONO% 5.8 % (1.7-9.3); MPV 8.3 FL (7.4-10.4); NEUT# 13.28 X1000 (1.4-6.5); NEUT% 85.1 % (42.2-75.2); PLT 378 X1000 (130-400); RBC 2.66 XMIL (4.7-6.1); RDW 15.4 % (11.5-14.5)
[2019-05-22 07:54] LABS: CREATININE 3.3 mg/dL (0.7-1.2); MAGNESIUM 2.3 mg/dL (1.5-2.7); POTASSIUM 4.6 mmol/L (3.5-5.1)
[2019-05-22 08:23] LABS: BANDS 2 % (0-1); EOS 2 % (1-10); LYMPHS 6 % (21-51); SEGS 90 % (42-75)
[2019-05-22] MEDS: PERIDEX MT SCH ×2 (09:30→21:40)
[2019-05-22] MEDS: FERROUS SULFATE PO SCH (09:30)
[2019-05-22] MEDS: SODIUM BICARBONATE PO SCH ×2 (09:30→21:40)
[2019-05-22] MEDS: CORDARONE PO SCH (09:30)
[2019-05-22] MEDS: HUMULIN 70/30 SUBQ SCH ×2 (09:30→18:08)
[2019-05-22] MEDS: ASPIRIN PO SCH (09:30)
[2019-05-22] MEDS: FOLIC ACID PO SCH ×2 (09:31→21:40)
[2019-05-22] MEDS: TUMS PO SCH ×3 (09:31→18:07)
[2019-05-22] MEDS: LOVENOX SUBQ SCH (09:31)
[2019-05-22 09:36] LABS: ALB/GLOB RATIO 0.4; ALBUMIN 1.6 g/dL (3.5-5.0); DIRECT BILIRUBIN 0.1 mg/dL (0.00-0.20); TOTAL BILIRUBIN 0.55 mg/dL (0.20-1.00); TOTAL PROTEIN 5.6 g/dL (6.3-8.3)
--- NOTE | 2019-05-22 12:10 | NEPHROLOGY CONSULTATION ---
DATE: 05/22/2019 REASON FOR CONSULTATION: Acute kidney injury. HISTORY OF PRESENT ILLNESS: Mr. Solorzano is a 69-year-old,black white male with history of chronic kidney disease. Baseline creatinine approximately 1.5. He presented to the emergency room on 05/18/2019 with fever and rectal pain. Evaluation disclosed fasciitis in the perineal area, and he was taken to the operating room for surgical debridement by Dr. Rouse on 05/18/2019. His creatinine on presentation was 1.5 and has risen progressively to 3.3. Urine output has been low but acceptable. He has been in positive fluid balance of approximately 5.5 L since admission. PAST MEDICAL HISTORY: Diabetes, hypertension, coronary disease, hyperlipidemia, atrial fibrillation, history of CVA. HOME MEDICATIONS: Folate, lisinopril, pantoprazole, amiodarone, metoprolol, aspirin, insulin, atorvastatin. ALLERGIES: None. SOCIAL HISTORY: Noncontributory. FAMILY HISTORY: Noncontributory. REVIEW OF SYSTEMS: Noncontributory. Social family. PHYSICAL EXAMINATION: Vital Signs: Blood pressure 133/58, heart rate 72, respiration 18, afebrile. General: No acute distress. Skin: Warm and dry. Neck: Neck veins are not distended. Heart: Regular. No gallops. Lungs: Equal. No crackles or wheezes. Abdomen: Soft, nontender. Bowel sounds are present. Extremities: No edema, clubbing or cyanosis. IMPRESSION: Acute kidney injury. Presumably, acute tubular necrosis secondary to sepsis. Creatinine continues to rise, but urine output is acceptable. He does have a significant metabolic acidosis. We will check urine electrolytes and urine protein as well as renal ultrasound. I have reviewed his medication. His Levaquin dose may require adjustment. Okay to continue IV fluids as ordered, except I will change them to lactated Ringer's because of his acidosis. cc: Sunil Foley MD
--- NOTE | 2019-05-22 12:56 | GENERAL SURGERY PROGRESS NOTE ---
DATE: 05/22/2019 SUBJECTIVE: The patient is doing well. He denies any significant pain, nausea, or vomiting. He is tolerating a clear liquid diet. OBJECTIVE: He is afebrile. Vital signs are stable.General: He is awake, alert, oriented x3. No acute distress. GI: Soft, nondistended, appropriately tender. Incision is clean, dry, and intact. Right lower quadrant stoma is somewhat edematous, but pink. There is some fluid in the bag. LABORATORY: White blood cell count 48591, hemoglobin 8.3, electrolytes reviewed and are stable except for increasing BUN and creatinine of 61 and 3.3 respectively. ASSESSMENT AND PLAN: A 69-year-old male with perineal wound, now status post diverting loop ileostomy. We will advance his diet. Continue dressing changes for the perineum. cc: Kash Cazares MD
--- NOTE | 2019-05-22 13:02 | Diag Imaging Result Doc PS360 ---
EXAM: CT ABDOMEN/PELVIS W/O CONTRAST HISTORY: decreased renal function TECHNIQUE: CT abdomen and pelvis without contrast COMPARISON: 05/18/2019 FINDINGS: the heart is enlarged. There are small bilateral pleural effusions. There is bibasilar atelectasis with underlying infiltrates and air bronchograms. There are midline skin jose. There is free air in the anterior abdomen. There is a small amount of fluid about the liver and spleen extending into the pelvis. The gallbladder has been removed. Severe atherosclerosis. No aortic aneurysm. The spleen is enlarged measuring 15.0 cm in AP diameter. There is thickening to the adrenal glands. Tiny left renal stone. No hydronephrosis. No inflammation about the pancreas. There are air distended loops of small bowel. Partial colon resection. A Jaimes catheter is in the urinary bladder. Urinary bladder is only mildly distended. IMPRESSION: 1.Recent abdominal surgery with an ileus and free intraperitoneal air 2.Lower lobe pneumonia with atelectasis as well as cardiomegaly and small pleural effusions 3.Cholecystectomy 4.Severe atherosclerosis 5.Partial colon resection 6.Splenomegaly This exam was performed using automated exposure control, adjustment of mA or kV according to patient size, and/or use of iterative reconstruction technique. Electronically signed by Steve Avendaño 05/22/2019 1:00 PM
--- NOTE | 2019-05-22 13:42 | EKG Report ---
Test Performed on : 05/22/2019 06:38:58 AM Test Reason : Monitor for QTc interval Blood Pressure : / mmHG Vent. Rate : 068 BPM Atrial Rate : 068 BPM P-R Int : 154 ms QRS Dur : 094 ms QT Int : 504 ms P-R-T Axes : 019 -19 044 degrees QTc Int : 535 ms Normal sinus rhythm. Anterior infarct (cited on or before 04-MAY-2019) Prolonged QT Abnormal ECG When compared with ECG of 04-MAY-2019 22:52, (Unconfirmed) Previous ECG has undetermined rhythm, needs review Inverted T waves have replaced nonspecific T wave abnormality in Anterior leads QT has lengthened Confirmed by Ej ZIMMERMAN, Jonathan Stinson ([id number]) on 05/23/2019 7:26:51 AM
[2019-05-22 14:43] LABS: URINE SOURCE CATH
[2019-05-22] MEDS: LEVAQUIN 500 MG in NS 100 ML IV SCH (14:44)
[2019-05-22 14:47] LABS: BILIRUBIN URINE NEGATIVE (NEGATIVE); BLOOD URINE SMALL (NEGATIVE); COLOR YELLOW; GLUCOSE URINE NEGATIVE (NEGATIVE); KETONE URINE NEGATIVE (NEGATIVE); LEUKOCYTES URINE LARGE (NEGATIVE); NITRITE URINE NEGATIVE (NEGATIVE); PH URINE 5.5; PROTEIN URINE 50 mg/dL (NEGATIVE); SP GRAVITY URINE 1.018; TURBIDITY URINE TURBID (CLEAR); UROBILINOGEN URINE NORMAL (NORMAL)
[2019-05-22 14:49] LABS: UR EPITHELIAL CELLS <10 /HPF (<10); URINE BACTERIA NEGATIVE /HPF; URINE RBC TNTC /HPF (<10); URINE WBC TNTC /HPF (<10)
[2019-05-22 14:57] LABS: UR CREAT RANDOM 100.5 mg/dL (14-26); UR PROT RANDOM 51.1 mg/dL; URINE YEAST PRESENT
--- NOTE | 2019-05-22 15:37 | PROGRESS NOTE ---
DATE: 05/22/2019 INTERVAL HISTORY: No acute events overnight. He has been having some output through ostomy, and he ate a little bit of breakfast. I discussed with him about the wound culture results, importance of good nutrition, physical activity, possible rehab, adjusting insulin dose, and I answered all of his questions. VITALS: Temperature 98.2 degrees, pulse 76, respiratory 20, blood pressure 130/60, saturating 100% on 2.5 L nasal cannula. PHYSICAL EXAMINATION: General: Not in any acute distress. HEENT: Oral cavity is moist. Lungs: Air entry bilaterally equal. No wheeze, rhonchi, crackles. Cardiovascular: S1, S2 normal. No murmur, rub, or gallop. Regular. Abdomen: Soft. Midline laparotomy scar and a right lower quadrant ileostomy, which was just emptied out. Mild kelvin-incisional tenderness with active bowel sounds. Extremities: Bilateral mild lower extremity edema. : He has a urine catheter. He has a wound with persistent drainage on left buttock. LABS: Suggestive of leukocytosis, normocytic anemia, normal platelet count. Acceptable range of electrolytes except worsening BUN, creatinine, and hypocalcemia. His LFTs were largely unremarkable except high alkaline phosphatase which is decreasing. No new microbiological data. IMAGING: Abdomen pelvis CT performed on 05/22/2019 has recent abdominal surgery with an ileus and free intraperitoneal air, lower lobe pneumonia with atelectasis and small pleural effusion, cholecystectomy, atherosclerosis, colon resection and splenomegaly. ASSESSMENT AND PLAN: 1. 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 Continue intravenous fluids and intravenous levofloxacin. The patient denies any chest pain, shortness of breath or cough. Continue intravenous morphine as needed for abdominal pain and continue GI soft diet. 2. Acute kidney injury on chronic kidney disease stage 3 with low bicarbonate, likely acute tubular necrosis. Continue intravenous fluids, oral bicarbonate, close input and output monitoring with Jaimes catheter. Nephrology recommendation appreciated. Intraoperative hypotension or use of IV vancomycin could have contributed to it. 3. Anemia of chronic disease as well as acute blood loss anemia, status post 3 units of PRBC during this hospital admission. His fecal occult blood test was positive prior to surgery. Continue to monitor CBC daily. 4. Insulin-dependent diabetes mellitus with uncontrolled hyperglycemia. Continue current dose of NPH Humulin 70/30 as well as sliding scale. 5. History of coronary artery disease, status post CABG. Continue home aspirin, statin, and add metoprolol as tolerated. I will keep him on home amiodarone. He was not listed to be taking any blood thinners. He, though, has prior history of CVA. DISPOSITION: I will monitor the patient inside the hospital. We will await physical therapy. Eventually he would need rehab and Histology Manager on board. His code status is do not resuscitate level 1 . Plan of care discussed with him. His questions have been answered. cc: Cholo Echavarria MD MTDD
[2019-05-22] MEDS: LR 1,000 ML IV SCH (18:07)
[2019-05-22] MEDS: LIPITOR PO SCH (21:39)
[2019-05-22] MEDS: ZOFRAN IV PRN (21:40)
[2019-05-23] MEDS: MORPHINE IV PRN ×4 (01:42→21:38)
[2019-05-23] MEDS: PROTONIX PO SCH (06:11)
[2019-05-23] MEDS: LR 1,000 ML IV SCH (06:12)
[2019-05-23] MEDS: HUMALOG SUBQ SCH ×4 (06:51→21:42)
[2019-05-23] MEDS: ZOFRAN IV PRN ×2 (06:54→14:05)
[2019-05-23 07:40] LABS: CALCIUM 7.6 mg/dL (8.8-10.2); CREATININE 2.7 mg/dL (0.7-1.2); POTASSIUM 4.3 mmol/L (3.5-5.1)
[2019-05-23 07:41] LABS: BASO# 0.01 X1000 (0.0-0.2); BASO% 0.1 % (0.0-0.8); EOS# 0.16 X1000 (0.0-0.7); EOS% 1.3 % (0.0-10.0); HEMATOCRIT 25.9 % (42.0-52.0); HEMOGLOBIN 8.4 g/dL (14.0-18.0); IMM GRAN% 1.7 % (0.0-0.5); LYMPH# 0.91 X1000 (1.2-3.4); LYMPH% 7.6 % (20.5-51.1); MCH 28.8 PG (27-31); MCHC 32.4 g/dL (33-37); MCV 88.7 FL (81-99); MONO# 0.67 X1000 (0.11-0.59); MONO% 5.6 % (1.7-9.3); NEUT# 9.95 X1000 (1.4-6.5); NEUT% 83.7 % (42.2-75.2); PLT 418 X1000 (130-400); RBC 2.92 XMIL (4.7-6.1); RDW 14.5 % (11.5-14.5)
[2019-05-23] MEDS: LOVENOX SUBQ SCH (09:12)
[2019-05-23] MEDS: ASPIRIN PO SCH (09:12)
[2019-05-23] MEDS: TUMS PO SCH ×3 (09:12→19:06)
[2019-05-23] MEDS: CORDARONE PO SCH (09:12)
[2019-05-23] MEDS: FERROUS SULFATE PO SCH (09:12)
[2019-05-23] MEDS: PERIDEX MT SCH ×2 (09:12→21:38)
[2019-05-23] MEDS: SODIUM BICARBONATE PO SCH ×2 (09:12→21:38)
[2019-05-23] MEDS: FOLIC ACID PO SCH ×2 (09:12→21:38)
[2019-05-23] MEDS: HUMULIN 70/30 SUBQ SCH ×2 (10:08→17:00)
[2019-05-23] MEDS: LEVAQUIN 500 MG in NS 100 ML IV SCH (14:04)
--- NOTE | 2019-05-23 15:07 | PROGRESS NOTE ---
DATE: 05/23/2019 INTERVAL HISTORY: He did not tolerate a GI soft diet, and he had started throwing up several times during the nighttime, so his diet was changed back to liquid diet. Otherwise, he denies new complaints of any chest pain. He denies any shortness of breath. OBJECTIVE: Vital Signs: Temperature 98.3 degrees, pulse 79, respiratory rate 22, blood pressure 140/68, saturating 98% room air. General: Does not appear in acute distress. HEENT: Oral cavity is moist. Lungs: Air entry bilaterally equal. No wheeze, rhonchi, or crackles. Cardiovascular: S1, S2 normal. Regular. No murmur or gallop. Abdomen: Soft. Midline laparotomy scar and right lower quadrant ileostomy. Mild tenderness around the incision. He does have hypoactive bowel sounds. Extremities: Mild bilateral upper and lower extremity edema. : He has a urine catheter. Skin: On wound examination yesterday, he had about a 10 x 5 cm wound on the left buttock, which was draining pus-like material. IMAGING AND LABORATORY DATA: Labs suggestive of improving leukocytosis, normocytic anemia. He does have improvement in BUN and creatinine today. His urine output is increasing. Repeat abdomen and pelvis CT performed yesterday for decreased renal function had ileus and free intraperitoneal air, lower lobe pneumonia, cholecystectomy, atherosclerosis, and partial colon resection. ASSESSMENT AND PLAN: 1. 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 Continue intravenous levofloxacin. Change diet to full liquid diet as we await his ileus to get better. 2. Acute kidney injury on chronic kidney disease stage 3 with low bicarbonate, likely acute tubular necrosis in the setting of sepsis, presumed hypotension during surgery, and use of vancomycin, now improving. Continue Jaimes catheter and lactated Ringer's. 3. Anemia of chronic disease as well as acute blood loss anemia, status post 3 packed red blood cells during hospital admission. Continue to monitor CBC daily. I will keep him on iron sulfate, folic acid. 4. Insulin-dependent diabetes mellitus with uncontrolled hyperglycemia. His blood glucose has been better controlled on current dose. I will continue NPH 70/30. 5. History of coronary artery disease, status post coronary artery bypass graft. Continue home aspirin, statin, and metoprolol as tolerated. Also continue his home amiodarone. He has prior history of cerebrovascular accident. 6. Disposition. Continue to monitor the patient inside the hospital. Plan of care discussed with him. His questions have been answered. He would definitely need to go to rehab after this. [employer] team on board. ADDENDUM: Postoperative ileus: I was informed by the nurse that he had started vomiting again. It was bilious filling up the entire bowl. I ordered NG tube under suction and I will get a follow up Xray abdomen tomorrow morning. cc: Cholo Echavarria MD MTDD
--- NOTE | 2019-05-23 16:13 | Diag Imaging Result Doc PS360 ---
EXAM: CHEST/ABD TUBE PLACEMENT 05/23/2019 HISTORY: inserted NG tube, confirm position TECHNIQUE: AP chest and abdomen for NG tube placement COMMENT: There is an NG tube the tip of which appears to be in the area of the distal stomach or duodenum. IMPRESSION: NG tube in the abdomen as described. Electronically signed by Shashi Kingston 05/23/2019 4:11 PM
--- NOTE | 2019-05-23 19:13 | GENERAL SURGERY PROGRESS NOTE ---
DATE: 05/23/2019 SUBJECTIVE: The patient complains of nausea and some vomiting. OBJECTIVE: Vital signs: He is afebrile. Vital signs are stable. General: He is awake and alert, but appears ill. GI: Soft, mild distention and mild tenderness. Skin: Incision is clean, dry, and intact. Stoma is pink, but no significant flatus or stool in the bag. IMAGING: CT of abdomen and pelvis was obtained yesterday which does show many loops of dilated bowel. There is free intraperitoneal air, but this is likely just postoperative. ASSESSMENT AND PLAN: A 69-year-old male with postoperative ileus after diverting loop ileostomy. I believe an nasogastric tube is ordered. I agree with this. He will be NPO for now. cc: Kash Cazaers MD
[2019-05-23] MEDS: LIPITOR PO SCH (21:38)
--- NOTE | 2019-05-24 05:55 | GENERAL SURGERY PROGRESS NOTE ---
DATE: 05/24/2019 SUBJECTIVE: Patient is doing okay. Reviewed the notes from the weekend. He did have an NG tube placed yesterday for nausea. He seems to be doing okay this morning. He says he is feeling better. OBJECTIVE: Vital Signs: Patient is currently afebrile. His vital signs are stable. General: No acute distress. Cardiovascular: Regular rate and rhythm. Lungs: Grossly clear. Abdomen: Soft. Nondistended. Ostomy appears to be viable, not much in the appliance. Peritoneal wound with dressing intact. ASSESSMENT AND PLAN: A 69-year-old gentleman currently postoperative day #4 from diverting loop ileostomy and debridement of perineal and perirectal wound. Postoperative state. At this time, patient probably has some degree of postoperative ileus. He did have extensive adhesions in his abdomen. We had to do a pretty significant amount of lysis of adhesions as this is probably contributing to his ileus. At this point, continue supportive care. Continue local wound care to his perineum and perirectal area. We will continue to follow. May need to consider starting Clinimix here pretty soon. cc: Nirmal Rosue MD
[2019-05-24] MEDS: PROTONIX PO SCH (07:05)
[2019-05-24] MEDS: HUMALOG SUBQ SCH ×4 (08:06→21:35)
[2019-05-24] MEDS ORDERED: INSULIN PEN NEEDLES ONE (08:07)
--- NOTE | 2019-05-24 08:07 | Diag Imaging Result Doc PS360 ---
ABDOMEN FLAT/UPRIGHT - 05/24/2019 INDICATION: Follow up post operative ileus COMPARISON: 05/23/2019 FINDINGS: Stable nasogastric tube in the distal stomach or proximal duodenum. Stable diffusely dilated bowel loops that are mostly featureless. No evidence of free air. IMPRESSION: No change from prior. Diffuse ileus. Electronically signed by Leonardo Ricci 05/24/2019 8:05 AM
[2019-05-24] MEDS: LR 1,000 ML IV SCH (08:16)
[2019-05-24] MEDS: MORPHINE IV PRN (09:20)
--- NOTE | 2019-05-24 09:40 | NEPHROLOGY PROGRESS NOTE ---
DATE: 05/24/2019 SUBJECTIVE: He states he is "a little sore". No nausea, vomiting, or shortness of breath. OBJECTIVE: Vital Signs: Blood pressure 151/60, heart rate 61, respirations 14, afebrile. General: No acute distress. Skin: Warm and dry. Neck: Neck veins are not distended. Heart: Regular. No gallops. Lungs: Equal. No crackles or wheezes. Abdomen: Soft, nontender. Bowel sounds are present. Extremities: Have 2+ edema, right greater than left. IMPRESSION: Acute kidney injury. Creatinine was improved slightly yesterday. Data are pending thus far today. His metabolic acidosis was somewhat better after changing his intravenous fluids yesterday. He does have moderate volume expansion today but he has excellent urine output and was net -2.4 L over yesterday. Continue current care. cc: Sunil Foley MD
[2019-05-24 09:56] LABS: CALCIUM 7.2 mg/dL (8.8-10.2); CREATININE 1.8 mg/dL (0.7-1.2); MAGNESIUM 2.3 mg/dL (1.5-2.7); POTASSIUM 4.5 mmol/L (3.5-5.1)
[2019-05-24] MEDS: TUMS PO SCH ×3 (12:12→17:15)
[2019-05-24] MEDS: FERROUS SULFATE PO SCH (12:12)
[2019-05-24] MEDS: PERIDEX MT SCH ×2 (12:12→22:35)
[2019-05-24] MEDS: SODIUM BICARBONATE PO SCH ×2 (12:12→22:35)
[2019-05-24] MEDS: LOVENOX SUBQ SCH (12:12)
[2019-05-24] MEDS: HUMULIN 70/30 SUBQ SCH ×2 (12:12→17:15)
[2019-05-24] MEDS: CORDARONE PO SCH (12:12)
[2019-05-24] MEDS: ASPIRIN PO SCH (12:12)
[2019-05-24] MEDS: FOLIC ACID PO SCH ×2 (12:12→22:35)
[2019-05-24] MEDS: LEVAQUIN 500 MG in NS 100 ML IV SCH (14:24)
--- NOTE | 2019-05-24 18:27 | PROGRESS NOTE ---
DATE: 05/24/2019 INTERVAL HISTORY: No acute events overnight. Nasogastric tube was placed yesterday considering his persistent nausea and vomiting, which has been bringing about greenish output, so far close to 1.8 L. SUBJECTIVE: He is feeling better today and he wants to eat something. I discussed with him about waiting for another 24 hours at least. He denies chest pain, shortness of breath. No cough. He denies anymore nausea. His abdominal pain is better. VITAL SIGNS: Temperature 97.6 degrees, pulse 65, respiratory rate 16, blood pressure 140/59. He is saturating 100% on 2 L nasal cannula. PHYSICAL EXAMINATION: General: Not in any acute distress. Mild conjunctival pallor. No cyanosis, clubbing, or icterus. Lungs: Air entry bilaterally equal. No wheeze, rhonchi, or crackles. Cardiovascular: S1, S2 normal. Regular. No murmur, rub, or gallop. Not tachycardic. Abdomen: Soft. Right lower quadrant ileostomy. Midline laparotomy scar. Mild tenderness around the laparotomy incision site. Hypoactive bowel sounds. Extremity: Mild bilateral lower edema. She he has a urine catheter on wound examination. Previously, she had about 5 x 10 cm wound on the left buttock, which was draining some yellow brownish fluid. LABORATORY DATA: No CBC today. BMP suggestive of hyperchloremia. He continues to have low bicarbonate. His BUN and creatinine are improving. MICROBIOLOGY: No positive data. IMAGING: Abdominal x-ray performed today had diffuse distended bowel loops. No evidence of free air. ASSESSMENT AND PLAN: 1. 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 Continue intravenous levofloxacin. 2. Postoperative ileus. Continue n.p.o. status. Nasogastric tube under suction. I will follow up with abdominal x-ray tomorrow morning. Surgical Team on board. 3. Acute kidney injury on chronic kidney disease stage 3 with low bicarbonate due to acute tubular necrosis in the setting of sepsis and use of vancomycin, now improving. Continue Jaimes catheter to allow proper wound healing and lactated Ringer's with oral bicarbonate. 4. Anemia of chronic disease as well as acute blood loss anemia status post 3 packed red blood cells during this hospital admission. Continue to monitor CBC. I will keep him on iron sulfate and folic acid. 5. Others. Continue current dose of NPH 70/34 for insulin-dependent diabetes mellitus and uncontrolled hyperglycemia; aspirin statin and metoprolol for history of coronary artery disease status post coronary artery bypass grafting; amiodarone. He also had history of cerebrovascular accident in the past. DISPOSITION: The patient will be discharged to rehab in future. The patient would need rehab and [employer] on board once surgically cleared. Plan of care discussed with the patient. His questions have been answered. His code status is DNR level 1. cc: Cholo Echavarria MD MTDD
[2019-05-24] MEDS ORDERED: B & O 15A SUPP PR PRN (22:08)
[2019-05-24] MEDS: LIPITOR PO SCH (22:35)
[2019-05-25] MEDS: MORPHINE IV PRN (03:15)
[2019-05-25] MEDS: PROTONIX PO SCH (06:21)
[2019-05-25] MEDS: HUMALOG SUBQ SCH ×4 (06:29→21:45)
--- NOTE | 2019-05-25 07:32 | Diag Imaging Result Doc PS360 ---
EXAM: ABDOMEN FLAT/UPRIGHT 05/25/2019 HISTORY: Follw up post operative ileus TECHNIQUE: Flat and upright abdomen COMMENT: There are surgical skin clips in the midline from the epigastrium to the pelvis. There are multiple small bowel loops distended with gas with some thickening of the mucosal folds. There is an NG tube which is coiled in the fundus of the stomach with its tip in the distal stomach or duodenum. There is some stool in the rectum. Compared to 05/24/2019 the configuration of the bowel loops is similar which would be consistent with an ileus. IMPRESSION: Ileus, essentially unchanged since 05/24/2019. Electronically signed by Shashi Kingston 05/25/2019 7:30 AM
[2019-05-25 07:54] LABS: BASO# 0.01 X1000 (0.0-0.2); BASO% 0.1 % (0.0-0.8); EOS# 0.11 X1000 (0.0-0.7); EOS% 1.3 % (0.0-10.0); HEMATOCRIT 25.2 % (42.0-52.0); HEMOGLOBIN 8.4 g/dL (14.0-18.0); IMM GRAN# 0.25 X1000 (0.0-0.04); IMM GRAN% 2.9 % (0.0-0.5); LYMPH# 0.87 X1000 (1.2-3.4); MCH 29.1 PG (27-31); MCHC 33.3 g/dL (33-37); MCV 87.2 FL (81-99); MONO# 0.46 X1000 (0.11-0.59); MONO% 5.3 % (1.7-9.3); MPV 7.8 FL (7.4-10.4); NEUT# 6.97 X1000 (1.4-6.5); NEUT% 80.4 % (42.2-75.2); PLT 430 X1000 (130-400); RBC 2.89 XMIL (4.7-6.1); RDW 13.8 % (11.5-14.5); WBC 8.67 X1000 (4.8-10.8)
[2019-05-25 08:31] LABS: CALCIUM 8.2 mg/dL (8.8-10.2); CREATININE 1.6 mg/dL (0.7-1.2); POTASSIUM 4.3 mmol/L (3.5-5.1)
--- NOTE | 2019-05-25 08:40 | Diag Imaging Result Doc PS360 ---
EXAM: CHEST-1 VIEW 05/25/2019 HISTORY: REHAB TECHNIQUE: Erect AP portable at 0831 COMMENT: There is platelike atelectasis in both lung bases. There is an NG tube which passes below the diaphragm into the stomach. There are sternotomy wires and anterior mediastinal surgical clips. IMPRESSION: Bibasilar atelectasis. Electronically signed by Shashi Kingston 05/25/2019 8:38 AM
[2019-05-25] MEDS: SODIUM BICARBONATE PO SCH ×2 (08:55→21:45)
[2019-05-25] MEDS: TUMS PO SCH ×3 (08:55→18:27)
[2019-05-25] MEDS: LOVENOX SUBQ SCH (08:55)
[2019-05-25] MEDS: CORDARONE PO SCH (08:55)
[2019-05-25] MEDS: HUMULIN 70/30 SUBQ SCH ×2 (08:55→18:28)
[2019-05-25] MEDS: FOLIC ACID PO SCH ×2 (08:56→21:45)
[2019-05-25] MEDS: ASPIRIN PO SCH (08:56)
[2019-05-25] MEDS: FERROUS SULFATE PO SCH (08:56)
[2019-05-25] MEDS: PERIDEX MT SCH ×2 (09:01→21:45)
--- NOTE | 2019-05-25 09:40 | GENERAL SURGERY PROGRESS NOTE ---
DATE: 05/25/2019 SUBJECTIVE: Patient seems to be doing okay. He is not nauseated. He says he has had some air in his appliance. OBJECTIVE: Vital Signs: Patient is currently afebrile. His vital signs are stable. General: No acute distress. Cardiovascular: Regular rate and rhythm. Lungs: Grossly clear. Abdomen: Soft. Appropriately tender. Ileostomy appears viable. Removed the T-bar keeping the loop up. ASSESSMENT AND PLAN: A 69-year-old gentleman, currently postoperative day #5 from diverting loop colostomy and debridement of perineal wound. 1. Diverting loop colostomy. At this time, I think his ileus is improving somewhat. We will clamp his NG tube but not remove it. We will let him have some clear liquids. If he seems to get sick to his stomach, we will reconnect it to suction. 2. Perineal wound. At this time, continue local wound care. 3. Urinary incontinence. At this time, he is having issues with his Jaimes catheter and peeing around it, but not through it. We will just remove his Jaimes catheter. cc: Nirmal Rouse MD
[2019-05-25] MEDS: SANTYL OINT TOP SCH (10:51)
--- NOTE | 2019-05-25 12:12 | NEPHROLOGY PROGRESS NOTE ---
DATE: 05/25/2019 Subjective: Lying in bed getting a bath from staff. No uremic complaints. Objective: vitals. Temp 97.6, pulse 73, respirations 18, blood pressure 156/64, O2 sat 100% on room air. General: Elderly white male lying in bed receiving a bath and in no acute distress. HEENT: normocephalic, a traumatic. Pupils equal round and reactive to light. Trachea midline. Mucous membranes moist. Skin: scattered bruising to BUE. Neck: supple, no JVD Cardiovascular: S1, S2, no murmurs or gallops noted. Respiratory: clear with equal air excursion. Abdomen: soft, nontender and nondistended with colostomy to right lower abdomen beefy red stoma, midline incision dressing dry and intact. : non-inspected Extremities: right lower extremity 2+ pitting Edema, left lower extremity 1+ pitting edema Labs: WBC 8.67, hemoglobin 8.4, hematocrit 25.2, platelet count 430, sodium 137, potassium 4.3, chloride 106, carbon dioxide 15, anion gap 16, BUN 40, creatinine 1.6, calcium 8.2. Intake 450, output 1725. Impression: Acute kidney injury likely due to acute tubular necrosis secondary to sepsis. Improving. Baseline creatinine 1.5 his creatinine today is 1.6. Continue current plan. Metabolic acidosis. Resolving. Electrolytes. Stable. cc: Sunil Foley MD [facility]
[2019-05-25] MEDS: LEVAQUIN 500 MG in NS 100 ML IV SCH (13:54)
--- NOTE | 2019-05-25 16:46 | PROGRESS NOTE ---
DATE: 05/25/2019 SUBJECTIVE: This patient is feeling better today. It looks like he is tolerating a little bit of diet. He is on a clear liquid diet that we started today. He has an NG tube but it is not getting suction, it is clamped. Let us see how he does with that. He is getting antibiotics, levofloxacin. He has a left gluteal area culture from 05/18/2019 that showed E. coli and Staph hominis. Blood culture from the same day has been negative, as well as the urine culture. It looks like his white blood cell count normalized. He is not having fever. His kidney function is close to his baseline. His blood sugar has been a little bit elevated today, but most of the time has been controlled. Surgery Department as well as Nephrology Department on board. OBJECTIVE: Vital Signs: Temperature 98.5 degrees, pulse 70, respiratory rate 16, blood pressure 156/64, oxygen saturation 100% on room air. HEENT: Head normocephalic. No trauma. PERRLA. Neck: Supple. No JVD. No masses. Central trachea. Chest: Clear to auscultation. No wheezing. No rales. Some crepitus at the bases, though. Cardiovascular: RRR. Abdomen: Soft. He has a right lower quadrant ileostomy, midline laparotomy scar with some pain around the area. He has hypoactive bowel sounds. Extremities: Bilateral lower extremity edema 1 to 2+. His gluteal wound has been covered, but it is draining some yellowish fluid. Neurological: The patient is alert. He is oriented x3. He is following commands. LABORATORY: WBC 8.6, hemoglobin 8.4, hematocrit 25.2, platelets 430,000. Sodium 137, potassium 4.3, chloride 106, bicarbonate 15, BUN 40, creatinine 1.6, glucose 240, calcium 8.2. ASSESSMENT AND PLAN: 1. 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 I will continue with antibiotics, specially levofloxacin which it is sensitive. We will continue following the recommendations of Surgery Department. 2. Postoperative ileus. It looks like he is getting a little bit better. The NG tube has been clamped and we have started this patient on a liquid diet. Let us see how he does. 3. Acute kidney injury on chronic kidney disease with low bicarb due to acute tubular necrosis in the setting of sepsis and antibiotic use, especially vancomycin, this is improving. I will continue with the same management for now. I will not change anything at the moment. 4. Anemia of chronic disease as well as acute blood loss anemia. Status post 3 PRBCs during this hospital admission. We will continue to monitor. 5. Type 2 diabetes. Continue with insulin 70/30. 6. History of coronary artery disease status post coronary artery bypass graft. Continue with same management. 7. He has a history of cerebrovascular accident in the past. 8. This patient is Do Not Resuscitate level 1. Hopefully once he is better we are going to be able to discharge this patient to a rehab center. cc: Konrad Bell MD MTDD
[2019-05-25] MEDS: LIPITOR PO SCH (21:45)
[2019-05-26] MEDS: PROTONIX PO SCH (06:37)
[2019-05-26] MEDS: HUMALOG SUBQ SCH ×4 (06:38→21:33)
[2019-05-26 07:31] LABS: CALCIUM 7.5 mg/dL (8.8-10.2); CREATININE 1.3 mg/dL (0.7-1.2); POTASSIUM 4.1 mmol/L (3.5-5.1)
[2019-05-26] MEDS: FOLIC ACID PO SCH ×2 (09:25→21:32)
[2019-05-26] MEDS: SODIUM BICARBONATE PO SCH ×2 (09:26→21:32)
[2019-05-26] MEDS: TUMS PO SCH ×4 (09:26→17:00)
[2019-05-26] MEDS: LOVENOX SUBQ SCH (09:26)
[2019-05-26] MEDS: PERIDEX MT SCH ×2 (09:26→21:34)
[2019-05-26] MEDS: FERROUS SULFATE PO SCH (09:26)
[2019-05-26] MEDS: CORDARONE PO SCH (09:26)
[2019-05-26] MEDS: ASPIRIN PO SCH (09:26)
[2019-05-26] MEDS ORDERED: FIORICET PO ONE (11:04)
[2019-05-26] MEDS: SANTYL OINT TOP SCH ×2 (11:20→21:33)
--- NOTE | 2019-05-26 12:33 | GENERAL SURGERY PROGRESS NOTE ---
DATE: 05/26/2019 SUBJECTIVE: The patient feels much better. He denies abdominal pain, nausea, or vomiting. He has been tolerating a clear liquid diet and has had quite a bit of ileostomy output. OBJECTIVE: He is afebrile. Vital signs are stable. In general, he is awake, alert, oriented x3. No acute distress. GI soft, nontender, nondistended. Incision is clean, dry, and intact. Ileostomy is pink. There is liquid stool in the bag. LABORATORY: Electrolytes reviewed and unremarkable. ASSESSMENT AND PLAN: A 69-year-old male status post loop ileostomy with perineal wound, he had a postoperative ileus. This appears to be much improved. We will remove the NG tube today if his residual is low and advance him to a full liquid diet. cc: Kash Cazares MD
[2019-05-26] MEDS: LEVAQUIN 500 MG in NS 100 ML IV SCH (13:12)
--- NOTE | 2019-05-26 13:44 | PROGRESS NOTE ---
DATE: 05/26/2019 SUBJECTIVE: The patient is feeling better today, but he is complaining of migraines. He apparently takes Fioricet at home. I will give him 1 dose. BUN and creatinine are better. Blood sugar is a little bit higher, so I will increase the dose of the insulin 70/30. His ileus seems to be improving. Surgery Department following this patient closely. OBJECTIVE: Vital Signs: Temperature 97.8 degrees, pulse 64, respiratory rate 16, blood pressure 148/60, oxygen saturation 100% on room air. HEENT: Head normocephalic, no trauma. PERRLA. Neck: Supple. No JVD. No masses. Central trachea. Chest: Clear to auscultation. No wheezing. No rales. Some crepitus at the bases. Cardiovascular: RRR. Abdomen: Soft. Right lower quadrant ileostomy, midline laparotomy scar with some pain around that area. Hypoactive bowel sounds. Extremities: Bilateral lower extremity edema 1+ to 2+. His gluteal wound has been covered; it is draining some yellowish fluid. Neurological examination: The patient is alert. He is oriented x3. He is following commands. LABORATORY: Sodium 139, potassium 4.1, chloride 108, bicarbonate 18, BUN 27, creatinine 1.3, glucose 215, calcium 7.5. ASSESSMENT AND PLAN: 1. 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 I will continue with antibiotic levofloxacin, which is sensitive. We will continue following the recommendations of Surgery Department as well. 2. Postoperative ileus. He seems to be getting better. 3. Acute kidney injury on chronic kidney disease, due to acute tubular necrosis in the setting of sepsis and antibiotic use. This is improving. 4. Anemia of chronic disease, as well as acute blood loss anemia status post 3 packed red blood cells. During this hospital admission, we will continue to monitor. 5. Type 2 diabetes. Continue with insulin 70/30, which I have increased. 6. History of coronary artery disease status post coronary artery bypass graft. Continue with same management. 7. Has a history of cerebrovascular accident in the past. 8. This patient is do not resuscitate level 1. Hopefully once he is better, we are going to discharge this patient to a rehab center. 9. History of migraines. It looks like he has migraines today and he takes Fioricet at home. I will give him 1 dose to see how he does. cc: Konrad Bell MD
[2019-05-26] MEDS: HUMULIN 70/30 SUBQ SCH (17:02)
[2019-05-26] MEDS: LIPITOR PO SCH (21:32)
[2019-05-26] MEDS: MORPHINE IV PRN (21:40)
[2019-05-27] MEDS ORDERED: INSULIN PEN NEEDLES ONE (04:56)
--- NOTE | 2019-05-27 06:08 | GENERAL SURGERY PROGRESS NOTE ---
DATE: 05/27/2019 SUBJECTIVE: The patient seems to be doing okay. OBJECTIVE: Vital Signs: The patient is currently afebrile. His vital signs are stable. General: No acute distress. Cardiovascular: Regular rate and rhythm. Lungs: Grossly clear. Abdomen: Soft, appropriately tender. Ileostomy appears to be viable and functioning. Perineal wound with dressing intact. ASSESSMENT AND PLAN: A 69-year-old gentleman status post operative day #7 from diverting loop ileostomy and debridement of perineal wound. 1. Diverting loop ileostomy. At this time his ileus seems to be improving. We will advance him to a GI soft diet. We will continue local wound care. We will have Wound Care see him again today. He may be getting close to having a wound VAC able to be placed in that area. 2. Perineal wound. Please see above. 3. Urinary incontinence. At this time seems to be improving. cc: Nirmal Rouse MD
[2019-05-27] MEDS: HUMALOG SUBQ SCH ×4 (06:50→22:18)
[2019-05-27] MEDS: PROTONIX PO SCH (06:55)
[2019-05-27 07:09] LABS: BASO# 0.02 X1000 (0.0-0.2); BASO% 0.2 % (0.0-0.8); EOS# 0.21 X1000 (0.0-0.7); EOS% 2.2 % (0.0-10.0); HEMATOCRIT 23.7 % (42.0-52.0); IMM GRAN# 0.28 X1000 (0.0-0.04); LYMPH# 1.39 X1000 (1.2-3.4); LYMPH% 14.7 % (20.5-51.1); MCH 29.2 PG (27-31); MCHC 33.8 g/dL (33-37); MCV 86.5 FL (81-99); MONO# 0.66 X1000 (0.11-0.59); NEUT# 6.89 X1000 (1.4-6.5); NEUT% 72.9 % (42.2-75.2); PLT 432 X1000 (130-400); RBC 2.74 XMIL (4.7-6.1); RDW 13.8 % (11.5-14.5); WBC 9.45 X1000 (4.8-10.8)
[2019-05-27 07:20] LABS: CALCIUM 7.6 mg/dL (8.8-10.2); CREATININE 1.3 mg/dL (0.7-1.2); POTASSIUM 3.9 mmol/L (3.5-5.1)
[2019-05-27 07:51] LABS: LYMPHS 10 % (21-51); MONO 2 % (1-9); SEGS 88 % (42-75)
[2019-05-27] MEDS: FERROUS SULFATE PO SCH (08:24)
[2019-05-27] MEDS: CORDARONE PO SCH (08:24)
[2019-05-27] MEDS: LOVENOX SUBQ SCH (08:24)
[2019-05-27] MEDS: FOLIC ACID PO SCH ×2 (08:24→22:26)
[2019-05-27] MEDS: ASPIRIN PO SCH (08:24)
[2019-05-27] MEDS: PERIDEX MT SCH ×2 (08:24→22:26)
[2019-05-27] MEDS: TUMS PO SCH ×3 (08:24→17:48)
[2019-05-27] MEDS: SODIUM BICARBONATE PO SCH ×2 (08:25→22:26)
[2019-05-27] MEDS: HUMULIN 70/30 SUBQ SCH ×2 (08:25→16:50)
[2019-05-27] MEDS: MORPHINE IV PRN (09:33)
[2019-05-27] MEDS: SANTYL OINT TOP SCH (11:48)
[2019-05-27] MEDS: LEVAQUIN 500 MG in NS 100 ML IV SCH (13:57)
--- NOTE | 2019-05-27 14:27 | PROGRESS NOTE ---
DATE: 05/27/2019 SUBJECTIVE: The patient is resting comfortably in bed. He is not complaining of headache today. BUN and creatinine are better. I will continue with the same management. He seems to be getting better. He is tolerating p.o. now. OBJECTIVE: Vital Signs: Temperature 98.1 degrees, pulse 65, respiratory rate 18, blood pressure 139/56, oxygen saturation 98 on room air. HEENT: Head normocephalic, no trauma. PERRLA. Neck: Supple. No JVD. No masses. Central trachea. Chest: Clear to auscultation. No wheezing. No rales. Some crepitus at the bases. Cardiovascular: RRR. Abdomen: Soft. Right lower quadrant ileostomy, midline laparotomy scar with some pain around the area. Hypoactive bowel sounds but present. Extremities: Bilateral lower extremity edema 1 to 2+. MUSCULOSKELETAL: His gluteal wound has been covered.Neurological: This patient is alert he is oriented x3. No focal deficits. LABORATORY: WBC 9.4, hemoglobin 8, hematocrit 23.7, platelets 432,000. Sodium 135, potassium 3.9, chloride 105, bicarbonate 20, BUN 16, creatinine 1.3, glucose 145, calcium 7.6. ASSESSMENT AND PLAN: 1. 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 Continue with antibiotics, levofloxacin which is sensitive. It seems to be getting better. Probably a wound VAC will be placed in the near future. 2. Postoperative ileus, he seems to be getting better, he is tolerating p.o. now. 3. Acute kidney injury on chronic kidney disease due to acute tubular necrosis, resolved. This is improving. 4. Anemia of chronic kidney disease as well as acute blood loss and blood loss anemia status post 3 packed red blood cells. 5. Type 2 diabetes. Continue with insulin 70/30. Blood sugar seems to be more stable. 6. History of coronary artery disease status post coronary artery bypass grafting , continue with same management. No chest pain at this moment. 7. History of cerebrovascular accident in the past, aware. 8. This patient is do not resuscitate level 1. 9. History of migraines. Yesterday he had an episode of headache which resolved with 1 dose of Fioricet. cc: Konrad Bell MD
[2019-05-27] MEDS: LIPITOR PO SCH (22:26)
[2019-05-28] MEDS: MORPHINE IV PRN (01:20)
--- NOTE | 2019-05-28 06:03 | GENERAL SURGERY PROGRESS NOTE ---
DATE: 05/28/2019 SUBJECTIVE: Patient seems to be doing okay. OBJECTIVE: Vital Signs: Patient is currently afebrile. His vital signs are stable. General: No acute distress. Cardiovascular: Regular rate and rhythm. Lungs: Grossly clear. Abdomen: Soft, appropriately tender. Ileostomy is viable and functioning. Perineal wound dressing taken down. There is some slough, but overall the wound has granulation tissue. I do not see any active purulence or crepitus around the wound. ASSESSMENT AND PLAN: A 69-year-old gentleman currently postoperative day number 8 from diverting loop colostomy and debridement of perineal wound. 1. Diverting loop colostomy. At this time, he seems to be improving. Will continue to monitor. 2. Perineal wound. At this time there is some improvement, although there still is some slough. Will continue Santyl and Vashe twice a day dressing changes. cc: Nirmal Rouse MD
[2019-05-28 06:32] LABS: BASO# 0.03 X1000 (0.0-0.2); BASO% 0.3 % (0.0-0.8); EOS# 0.17 X1000 (0.0-0.7); EOS% 1.8 % (0.0-10.0); HEMATOCRIT 25.6 % (42.0-52.0); HEMOGLOBIN 8.5 g/dL (14.0-18.0); IMM GRAN# 0.23 X1000 (0.0-0.04); IMM GRAN% 2.5 % (0.0-0.5); LYMPH# 1.66 X1000 (1.2-3.4); LYMPH% 17.9 % (20.5-51.1); MCHC 33.2 g/dL (33-37); MCV 87.4 FL (81-99); MONO# 0.55 X1000 (0.11-0.59); MONO% 5.9 % (1.7-9.3); MPV 7.9 FL (7.4-10.4); NEUT# 6.65 X1000 (1.4-6.5); NEUT% 71.6 % (42.2-75.2); PLT 362 X1000 (130-400); RBC 2.93 XMIL (4.7-6.1); WBC 9.29 X1000 (4.8-10.8)
[2019-05-28] MEDS: HUMALOG SUBQ SCH ×4 (06:39→22:44)
[2019-05-28] MEDS: PROTONIX PO SCH (06:49)
[2019-05-28 06:53] LABS: CALCIUM 7.7 mg/dL (8.8-10.2); CREATININE 1.2 mg/dL (0.7-1.2)
[2019-05-28] MEDS: TUMS PO SCH ×3 (09:05→17:49)
[2019-05-28] MEDS: CORDARONE PO SCH (09:05)
[2019-05-28] MEDS: PERIDEX MT SCH ×2 (09:05→22:46)
[2019-05-28] MEDS: SODIUM BICARBONATE PO SCH ×2 (09:05→22:46)
[2019-05-28] MEDS: FOLIC ACID PO SCH ×2 (09:06→22:46)
[2019-05-28] MEDS: FERROUS SULFATE PO SCH (09:06)
[2019-05-28] MEDS: ASPIRIN PO SCH (09:06)
[2019-05-28] MEDS: LOVENOX SUBQ SCH (09:06)
[2019-05-28] MEDS: HUMULIN 70/30 SUBQ SCH ×2 (09:10→17:48)
[2019-05-28] MEDS: LEVAQUIN 500 MG in NS 100 ML IV SCH (13:07)
--- NOTE | 2019-05-28 17:12 | PROGRESS NOTE ---
DATE: 05/28/2019 SUBJECTIVE: The patient is resting comfortably in bed. Physical therapy is working on this patient and he seems to be doing some mild steps today. BUN and creatinine are normal today. Blood sugar is better controlled. We will continue with the same management. Hopefully, at some point next week, this patient can be discharged to a rehab center. OBJECTIVE: Vital Signs: Temperature 98.6 degrees, pulse 71, respiratory rate 16, blood pressure 128/56, oxygen saturation 99 on room air. HEENT: Head normocephalic, no trauma. PERRLA. Neck: Supple. No JVD. No masses. Central trachea. Chest: Clear to auscultation. No wheezing. No rales. Some crepitus at the bases. Cardiovascular: Regular rate and rhythm. Abdomen: Soft. Right lower quadrant ileostomy, midline laparotomy scar with some pain around that area. Hypoactive bowel sounds but present. Extremities: Bilateral lower extremity edema 1 to 1+. LABORATORY DATA: WBC 9.2, hemoglobin 8.5, hematocrit 25.6, platelet 362,000. Sodium 137, potassium 4, chloride 106, bicarbonate 23, BUN 14, creatinine 1.2, glucose 124, calcium 7.7. ASSESSMENT AND PLAN: 1. 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 Continue with antibiotics, levofloxacin which is sensitive to this bacteria, he seems to be getting better, continue with wound care as recommended by Surgery Department. 2. Postoperative ileus, he seems to be getting better. He is tolerating p.o. now and also he is having bowel movements. 3. Acute kidney injury on chronic kidney disease due to ATN, resolved. 4. Anemia of chronic disease as well as acute blood loss anemia status post 3 packed red blood cells. Aware. 5. Type 2 diabetes. Continue with insulin 70/30. Seems to be more stable. 6. History of coronary artery disease status post coronary artery bypass graft. Continue with the same management. No chest pain at this moment. 7. History of cerebrovascular accident in the past. Aware. 8. This patient is DNR level 1. 9. History of migraines, with 1 episode of migraine 2 days ago that got better with Fioricet x1. cc: Konrad Bell MD
[2019-05-28] MEDS: SANTYL OINT TOP SCH (17:52)
[2019-05-28] MEDS: LIPITOR PO SCH (22:46)
[2019-05-29] MEDS: ZOFRAN IV PRN ×4 (04:05→20:31)
[2019-05-29] MEDS: MORPHINE IV PRN ×2 (05:27→20:29)
[2019-05-29] MEDS: PROTONIX PO SCH ×2 (05:29→06:21)
--- NOTE | 2019-05-29 06:17 | GENERAL SURGERY PROGRESS NOTE ---
DATE: 05/29/2019 SUBJECTIVE: Patient had some nausea today yesterday and through the evening, but he is still having ostomy output. OBJECTIVE: Vital Signs: Patient is currently afebrile. His vital signs are stable. General: No acute distress, but appears sick. Cardiovascular: Regular rate and rhythm. Lungs: Grossly clear. Abdomen: Soft. Ostomy functioning. Incision is healing well. Perineal wound the same. ASSESSMENT AND PLAN: A 69-year-old gentleman status post diverting loop ileostomy for perineal wound. Postop state. At this time, patient is currently postoperative day #9 from diverting loop ileostomy. His perineal wound seems to be doing okay. He is still having some nausea, and so we will try to give him some more nausea medicine, but otherwise continue to monitor him. cc: Nirmal Rouse MD
[2019-05-29] MEDS: HUMALOG SUBQ SCH ×3 (06:20→18:00)
[2019-05-29 07:30] LABS: BASO# 0.04 X1000 (0.0-0.2); BASO% 0.3 % (0.0-0.8); EOS# 0.22 X1000 (0.0-0.7); EOS% 1.5 % (0.0-10.0); HEMATOCRIT 27.4 % (42.0-52.0); HEMOGLOBIN 8.9 g/dL (14.0-18.0); IMM GRAN# 0.31 X1000 (0.0-0.04); IMM GRAN% 2.2 % (0.0-0.5); LYMPH# 2.26 X1000 (1.2-3.4); LYMPH% 15.9 % (20.5-51.1); MCH 28.6 PG (27-31); MCHC 32.5 g/dL (33-37); MCV 88.1 FL (81-99); MONO% 6.3 % (1.7-9.3); MPV 8.1 FL (7.4-10.4); NEUT# 10.51 X1000 (1.4-6.5); NEUT% 73.8 % (42.2-75.2); PLT 450 X1000 (130-400); RBC 3.11 XMIL (4.7-6.1); RDW 14.6 % (11.5-14.5); WBC 14.24 X1000 (4.8-10.8)
[2019-05-29 07:58] LABS: CALCIUM 7.8 mg/dL (8.8-10.2); CREATININE 1.4 mg/dL (0.7-1.2)
[2019-05-29] MEDS: HUMULIN 70/30 SUBQ SCH ×2 (09:42→18:03)
[2019-05-29] MEDS: FERROUS SULFATE PO SCH (12:13)
[2019-05-29] MEDS: FOLIC ACID PO SCH ×2 (12:13→20:30)
[2019-05-29] MEDS: TUMS PO SCH ×3 (12:13→17:59)
[2019-05-29] MEDS: PERIDEX MT SCH ×2 (12:13→20:29)
[2019-05-29] MEDS: LOVENOX SUBQ SCH (12:13)
[2019-05-29] MEDS: CORDARONE PO SCH (12:13)
[2019-05-29] MEDS: SODIUM BICARBONATE PO SCH ×2 (12:14→20:30)
[2019-05-29] MEDS: ASPIRIN PO SCH (12:14)
[2019-05-29] MEDS: NS 1,000 ML IV SCH (12:20)
--- NOTE | 2019-05-29 12:54 | PROGRESS NOTE ---
DATE: 05/29/2019 SUBJECTIVE: The patient is complaining of nausea today, and apparently he is spent the night with nausea and some vomiting. I will put him on some IV fluids, avoid dehydration, but for now we will continue to monitor. OBJECTIVE: Vital Signs: Temperature 98.5 degrees, pulse 68, respiratory rate 16, blood pressure 125/53, oxygen saturation 99 on room air. HEENT: Head normocephalic, no trauma. PERRLA. Neck: Supple. No JVD. No masses. Central trachea. Chest: Clear to auscultation. No wheezing. No rales. Abdomen: Soft. Right lower quadrant ileostomy, midline laparotomy scar,with some pain around the area. Hypoactive bowel sounds but present. Extremities: Bilateral lower extremity edema. LABORATORY: WBC 14.2, hemoglobin 8.9, hematocrit 27.4, platelets 450,000. Sodium 137, potassium 4, chloride 102, bicarbonate 23, BUN 15, creatinine 1.4, glucose 182, calcium 7.8. ASSESSMENT AND PLAN: 1. Sepsis due to Basil's gangrene, perirectal and perianal abscess with Staphylococcus hominis and Escherichia coli status post surgical debridement and diverting ileostomy, postoperative day #9. We will continue with antibiotic. He is having nausea and vomiting, Surgery on board. We will monitor for now. 2. Postoperative ileus as above. He was recovering and he was tolerating p.o., but now he is having nausea and vomiting. 3. Acute kidney injury on chronic kidney disease due to ATN, resolved. 4. Anemia of chronic disease as well as acute blood loss anemia, status post 3 PRBCs aware. 5. Type 2 diabetes. Continue with insulin 70/30. 6. History of coronary artery disease, status post coronary artery bypass graft. Aware. No chest pain at this moment. 7. History of cerebrovascular accident in the past. Aware. 8. This patient is DNR level 1. 9. History of migraines, stable. cc: Konrad Bell MD
[2019-05-29] MEDS: LEVAQUIN 500 MG in NS 100 ML IV SCH (15:02)
[2019-05-29] MEDS: SANTYL OINT TOP SCH (18:02)
[2019-05-29] MEDS: LIPITOR PO SCH (20:30)
[2019-05-30] MEDS: HUMALOG SUBQ SCH ×5 (00:41→20:54)
[2019-05-30] MEDS: ZOFRAN IV PRN ×5 (02:21→20:51)
[2019-05-30] MEDS: MORPHINE IV PRN ×4 (02:21→20:51)
[2019-05-30] MEDS: NS 1,000 ML IV SCH ×2 (02:27→13:49)
[2019-05-30] MEDS: PROTONIX PO SCH (06:35)
[2019-05-30 06:58] LABS: BASO# 0.04 X1000 (0.0-0.2); BASO% 0.4 % (0.0-0.8); EOS# 0.15 X1000 (0.0-0.7); EOS% 1.5 % (0.0-10.0); IMM GRAN# 0.13 X1000 (0.0-0.04); IMM GRAN% 1.3 % (0.0-0.5); LYMPH# 1.33 X1000 (1.2-3.4); LYMPH% 13.1 % (20.5-51.1); MCH 28.6 PG (27-31); MCV 89.3 FL (81-99); MONO# 0.58 X1000 (0.11-0.59); MONO% 5.7 % (1.7-9.3); MPV 7.9 FL (7.4-10.4); NEUT# 7.92 X1000 (1.4-6.5); PLT 372 X1000 (130-400); RDW 14.9 % (11.5-14.5); WBC 10.15 X1000 (4.8-10.8)
--- NOTE | 2019-05-30 07:09 | GENERAL SURGERY PROGRESS NOTE ---
DATE: 05/30/2019 SUBJECTIVE: The patient is having less nausea. OBJECTIVE: Vital Signs: The patient is currently afebrile. His vital signs are stable. General: No acute distress. Cardiovascular: Regular rate and rhythm. Lungs: Grossly clear. Abdomen: Soft, appropriately tender. Perineal wound with dressing intact. ASSESSMENT AND PLAN: A 69-year-old gentleman status post diverting loop ileostomy for perineal wound. Postoperative state. At this time, the patient is currently postoperative day #10 for diverting loop ileostomy. I think his ileus is improving. His nausea has improved. Will keep him on his diet. Will have Wound Care reassess him tomorrow for potential wound VAC, but will continue wet- to-dry dressing changes. cc: Nirmal Rouse MD
[2019-05-30 07:19] LABS: CALCIUM 7.8 mg/dL (8.8-10.2); CREATININE 1.2 mg/dL (0.7-1.2); POTASSIUM 4.2 mmol/L (3.5-5.1)
[2019-05-30] MEDS: HUMULIN 70/30 SUBQ SCH ×2 (08:11→17:12)
[2019-05-30] MEDS: SODIUM BICARBONATE PO SCH ×2 (08:12→20:54)
[2019-05-30] MEDS: ASPIRIN PO SCH (08:12)
[2019-05-30] MEDS: LOVENOX SUBQ SCH (08:12)
[2019-05-30] MEDS: PERIDEX MT SCH ×2 (08:12→20:54)
[2019-05-30] MEDS: FERROUS SULFATE PO SCH (08:13)
[2019-05-30] MEDS: CORDARONE PO SCH (08:13)
[2019-05-30] MEDS: TUMS PO SCH ×3 (08:13→17:12)
[2019-05-30] MEDS: FOLIC ACID PO SCH ×2 (08:13→20:53)
[2019-05-30] MEDS: SANTYL OINT TOP SCH (08:34)
--- NOTE | 2019-05-30 14:57 | PROGRESS NOTE ---
DATE: 05/30/2019 SUBJECTIVE: This patient is still lying comfortably in bed, but he is complaining of nausea. No vomiting today. We will continue with the same management. Since he is not eating or drinking too much, I will continue with the IV fluids, low rate, and I will monitor tomorrow. OBJECTIVE: Vital Signs: Temperature 98.9 degrees, pulse 72, respiratory rate 16, blood pressure 142/61, oxygen saturation 95% on room air. HEENT: Head normocephalic. No trauma. PERRLA. Neck: Supple. No JVD. No masses. Central trachea. Chest: Clear to auscultation. No wheezing. No rales. Abdomen: Soft. Right lower quadrant ileostomy. Midline laparotomy scar with some pain around the area. Hypoactive bowel sounds, but present. Extremities: Bilateral lower extremity edema. LABORATORY DATA: WBC 10.1, hemoglobin 8, hematocrit 25, platelets 372,000. Sodium 139, potassium 4.2, chloride 105, bicarbonate 24, BUN 15, creatinine 1.2, glucose 175, calcium 7.8. ASSESSMENT AND PLAN: 1. Sepsis due to Basil's gangrene, perirectal and perianal abscess with Staphylococcus hominis and Escherichia coli, status post surgical debridement and diverting ileostomy, postoperative day #10. Will continue with antibiotics. He is having nausea, but no vomiting today. We are going to try a diet, and I asked him to go slow with this. Will continue to monitor. 2. Postoperative ileus. As above. 3. Acute kidney injury on chronic kidney disease due to acute tubular necrosis, resolved. 4. Anemia of chronic disease as well as acute blood loss anemia, status post 3 packed red blood cells. Aware. 5. History of coronary artery disease, status post coronary artery bypass graft. Aware. No chest pain at this moment. 6. History of cerebrovascular accident in the past. Aware. 7. This patient is DO NOT RESUSCITATE level 1. 8. History of migraines. Stable. cc: Konrad Bell MD
[2019-05-30] MEDS: LEVAQUIN 500 MG in NS 100 ML IV SCH (15:28)
[2019-05-30] MEDS: LIPITOR PO SCH (20:54)
[2019-05-31] MEDS: MORPHINE IV PRN ×3 (00:12→12:26)
[2019-05-31] MEDS: ZOFRAN IV PRN (00:12)
[2019-05-31] MEDS ORDERED: SODIUM CHLORIDE 0.9% INJ PRN (03:24)
[2019-05-31] MEDS: PHENERGAN IV PRN ×2 (03:40→10:03)
[2019-05-31] MEDS: NS 1,000 ML IV SCH ×2 (03:43→17:44)
--- NOTE | 2019-05-31 06:57 | GENERAL SURGERY PROGRESS NOTE ---
DATE: 05/31/2019 SUBJECTIVE: The patient seems to be nauseated again. He has thrown up about 25 mL. OBJECTIVE: Vital Signs: The patient is currently afebrile. His vital signs are stable. General: No acute distress, but appears uncomfortable and sick. male, looks stated age. Cardiovascular: Regular rate and rhythm. Lungs: Grossly clear. Abdomen: Soft, mildly distended. Ileostomy is viable and functioning. Skin: Perineal wound with dressing intact. ASSESSMENT AND PLAN: A 69-year-old gentleman status post diverting loop ileostomy for perineal wound. Postoperative state. At this time, he still has some degree of an ileus. He is postoperative day #11. Will continue to monitor him. He is having ostomy output. Will have Wound Care reassess him for potential wound VAC placement. cc: Nirmal Rouse MD
[2019-05-31] MEDS: PROTONIX PO SCH (07:40)
[2019-05-31] MEDS: HUMALOG SUBQ SCH ×4 (07:40→23:04)
[2019-05-31 07:41] LABS: BASO# 0.02 X1000 (0.0-0.2); BASO% 0.2 % (0.0-0.8); EOS# 0.03 X1000 (0.0-0.7); EOS% 0.2 % (0.0-10.0); HEMATOCRIT 24.7 % (42.0-52.0); HEMOGLOBIN 7.8 g/dL (14.0-18.0); IMM GRAN# 0.08 X1000 (0.0-0.04); IMM GRAN% 0.6 % (0.0-0.5); LYMPH# 0.95 X1000 (1.2-3.4); LYMPH% 7.6 % (20.5-51.1); MCH 28.8 PG (27-31); MCHC 31.6 g/dL (33-37); MCV 91.1 FL (81-99); MONO% 4.8 % (1.7-9.3); MPV 8.1 FL (7.4-10.4); NEUT# 10.75 X1000 (1.4-6.5); NEUT% 86.6 % (42.2-75.2); PLT 328 X1000 (130-400); RBC 2.71 XMIL (4.7-6.1); RDW 15.1 % (11.5-14.5); WBC 12.43 X1000 (4.8-10.8)
[2019-05-31 07:51] LABS: CALCIUM 7.5 mg/dL (8.8-10.2); CREATININE 1.5 mg/dL (0.7-1.2); POTASSIUM 4.2 mmol/L (3.5-5.1)
--- NOTE | 2019-05-31 09:13 | Diag Imaging Result Doc PS360 ---
EXAM: ABDOMEN FLAT/UPRIGHT HISTORY: N/V,Abd. Distention. TECHNIQUE: Three views 05/25/2019 COMPARISON: None. FINDINGS: There are midline skin jose as well as surgical clips in the right abdomen. No free air beneath the diaphragm. There are dilated air-filled loops of bowel throughout. No organomegaly. IMPRESSION: Ileus with no interval improvement Electronically signed by Steve Avendaño 05/31/2019 9:11 AM
[2019-05-31] MEDS: HUMULIN 70/30 SUBQ SCH ×2 (10:00→17:48)
[2019-05-31] MEDS: CORDARONE PO SCH (10:02)
[2019-05-31] MEDS: SODIUM BICARBONATE PO SCH ×2 (10:03→21:23)
[2019-05-31] MEDS: FERROUS SULFATE PO SCH (10:03)
[2019-05-31] MEDS: FOLIC ACID PO SCH ×2 (10:03→21:23)
[2019-05-31] MEDS: TUMS PO SCH ×3 (10:03→17:44)
[2019-05-31] MEDS: LOVENOX SUBQ SCH (10:03)
[2019-05-31] MEDS: ASPIRIN PO SCH (10:08)
[2019-05-31] MEDS: PERIDEX MT SCH ×2 (10:08→21:24)
[2019-05-31] MEDS ORDERED: MORPHINE IV ONE (14:26)
[2019-05-31] MEDS: LEVAQUIN 500 MG in NS 100 ML IV SCH (14:35)
--- NOTE | 2019-05-31 15:57 | PROGRESS NOTE ---
DATE: 05/31/2019 SUBJECTIVE: This patient is lying in bed. At this moment, he is getting wound care. His abdominal wound looks fine, and he is having bowel movement. The ostomy is working. He has a couple of lesions in his perineal area. One of them on the left side is really deep, but he has some granulation tissue. I do not think he is ready to get a wound VAC at this moment. I will leave that decision to the surgery department. OBJECTIVE: Vital Signs: Temperature 98.3 degrees, pulse 75, respiratory rate 20, blood pressure 133/61, and oxygen saturation 95% on room air. HEENT: Head normocephalic. No trauma. PERRLA. Neck: Supple. No JVD. No masses. Central trachea. Chest: Clear to auscultation. No wheezing. No rales. Abdomen: Soft. Right lower quadrant ileostomy with midline laparotomy scar with jose and that looks fine. Hypoactive bowel sounds, but present. Extremities: Bilateral lower extremity edema. No clubbing. No cyanosis. Perineal area with a couple wounds that are packed. Wound care working on that right now. LABORATORY: WBC 12.4, hemoglobin 7.8, hematocrit 24.7, and platelets 328,000. Sodium 139, potassium 4.2, chloride 104, bicarbonate 24 BUN 17, creatinine 1.5, glucose 125, and calcium 7.5. ASSESSMENT AND PLAN: 1. Sepsis due to Basil's gangrene, perirectal and perianal abscess with Staphylococcus hominis and Escherichia coli status post surgical debridement and diverting ileostomy postoperative day #11. We will continue with antibiotics. He is not having nausea or vomiting today, but he is not tolerating too much p.o. Continue to monitor. 2. Postoperative ileus. This is getting better. He is still having some discomfort when he tries to eat and mild nausea. 3. Acute kidney injury on chronic kidney disease due to ATN. I think this is his baseline. 4. History of coronary artery disease status post coronary artery bypass graft. No chest pain at this moment. 5. History of cerebrovascular accident in the past aware. 6. This patient is DNR level 1. 7. History of migraines stable. cc: Konrad Bell MD
[2019-05-31] MEDS: SANTYL OINT TOP SCH (17:11)
[2019-05-31] MEDS ORDERED: INSULIN PEN NEEDLES ONE (17:50)
[2019-05-31] MEDS: LIPITOR PO SCH (21:23)
[2019-06-01] MEDS: MORPHINE IV PRN ×5 (01:29→21:45)
[2019-06-01] MEDS: ZOFRAN IV PRN (01:29)
[2019-06-01] MEDS: NS 1,000 ML IV SCH ×2 (06:19→21:02)
[2019-06-01] MEDS: PROTONIX PO SCH (06:19)
[2019-06-01 06:39] LABS: BASO# 0.03 X1000 (0.0-0.2); BASO% 0.4 % (0.0-0.8); EOS% 1.4 % (0.0-10.0); HEMATOCRIT 25.7 % (42.0-52.0); HEMOGLOBIN 8.2 g/dL (14.0-18.0); IMM GRAN# 0.05 X1000 (0.0-0.04); IMM GRAN% 0.7 % (0.0-0.5); LYMPH# 1.15 X1000 (1.2-3.4); LYMPH% 16.3 % (20.5-51.1); MCH 28.6 PG (27-31); MCHC 31.9 g/dL (33-37); MCV 89.5 FL (81-99); MONO# 0.63 X1000 (0.11-0.59); MONO% 8.9 % (1.7-9.3); NEUT# 5.09 X1000 (1.4-6.5); NEUT% 72.3 % (42.2-75.2); PLT 310 X1000 (130-400); RBC 2.87 XMIL (4.7-6.1); RDW 15.3 % (11.5-14.5); WBC 7.05 X1000 (4.8-10.8)
[2019-06-01 07:13] LABS: CALCIUM 7.5 mg/dL (8.8-10.2); CREATININE 1.4 mg/dL (0.7-1.2); POTASSIUM 4.1 mmol/L (3.5-5.1)
--- NOTE | 2019-06-01 08:20 | GENERAL SURGERY PROGRESS NOTE ---
DATE: 06/01/2019 SUBJECTIVE: Patient is feeling better. He had a significant amount of ileostomy output. He is not sick to his stomach. OBJECTIVE: Vital Signs: Patient is currently afebrile. His vital signs are stable. General: No acute distress. Cardiovascular: Regular rate and rhythm. Lungs: Grossly clear. Abdomen: Soft and nondistended. Ileostomy is functioning and viable. Perineal wound is intact. ASSESSMENT AND PLAN: A 69-year-old gentleman status post diverting loop ileostomy for perineal wound. Postoperative state at this time. Patient is currently postoperative day #12. His wound seems to be improving, and he seemed to have a ostomy output. At this point, I would like to just watch him for a couple if more days, and make sure his ileus is resolved. We can then transition him to being in outpatient wound care. cc: Nirmal Rouse MD
[2019-06-01] MEDS: TUMS PO SCH ×3 (10:23→19:20)
[2019-06-01] MEDS: FERROUS SULFATE PO SCH (10:23)
[2019-06-01] MEDS: SODIUM BICARBONATE PO SCH ×2 (10:23→21:04)
[2019-06-01] MEDS: CORDARONE PO SCH (10:23)
[2019-06-01] MEDS: FOLIC ACID PO SCH ×2 (10:23→21:04)
[2019-06-01] MEDS: LOVENOX SUBQ SCH (10:23)
[2019-06-01] MEDS: PERIDEX MT SCH ×2 (10:23→21:04)
[2019-06-01] MEDS: ASPIRIN PO SCH (10:23)
[2019-06-01] MEDS: HUMULIN 70/30 SUBQ SCH ×2 (10:44→19:20)
[2019-06-01] MEDS: HUMALOG SUBQ SCH ×4 (12:17→21:04)
--- NOTE | 2019-06-01 13:49 | PROGRESS NOTE ---
DATE: 06/01/2019 INTERVAL HISTORY: The patient with significant output from ostomy overnight and this morning. No new complaints. No acute events overnight. REVIEW OF SYSTEMS: Twelve point review of systems negative except as per interval history. LABORATORY: WBC 7.0, hemoglobin 8.2, hematocrit 25.7, and platelets 310,000. Basic metabolic panel significant only for her creatinine 1.4 and glucose 129. VITALS: T-max 98.5 degrees, pulse 75, respirations 18, blood pressure 140/61, and O2 saturation 96% on room air. PHYSICAL EXAMINATION: General: No acute distress. Vitals: As above. HEENT: Normocephalic, atraumatic. Moist mucous membranes. No cervical adenopathy. Cardiovascular: Regular rate and rhythm. No murmurs noted. Pulmonary: Clear to auscultation bilaterally. No wheezing, rales, rhonchi. Abdomen: Soft. Right lower quadrant ostomy with significant green brown liquid stool. Midline surgical scar clean, dry, and intact. No drainage noted. Bowel sounds decreased but present. Extremities: Peripheral pulses intact. Mild bilateral edema stable. Perennial wounds heavily bandaged. Neurologic: Cranial nerves grossly intact. Mild global weakness but no focal deficits. Psychiatric: Normal mood and affect. Awake, alert, and oriented x3. ASSESSMENT/PLAN: 1. Basil's gangrene sepsis, perirectal and perianal abscesses. Cultures growing Staphylococcus hominis and E. Coli. He has had surgical debridement as well as diverting ostomy. Continue antibiotics for now, but he is postop day 12. He can likely discontinue antibiotics in the near future as long as surgery thinks the wound looks good. 2. Postop ileus, much improved. The patient with significant ostomy output last night and this morning. Suspect this is largely resolved. Also, no further nausea. 3. Acute kidney injury on CKD 3. Some daily minor variation, but overall much improved likely essentially baseline at this point. Creatinine 1.4 today. 4. Coronary artery disease stable. Monitor. 5. History of CVA in the past, aware. 6. Migraines, stable. No headache currently. DISPOSITION: Anticipate discharge to rehab in a day or 2 if the patient's ileus remains resolved and Surgery is satisfied with how his wound looks.
[2019-06-01] MEDS: LEVAQUIN 500 MG in NS 100 ML IV SCH (14:44)
[2019-06-01] MEDS: SANTYL OINT TOP SCH (14:45)
[2019-06-01] MEDS: LIPITOR PO SCH (21:04)
[2019-06-02] MEDS: MORPHINE IV PRN ×3 (03:02→22:45)
--- NOTE | 2019-06-02 06:14 | GENERAL SURGERY PROGRESS NOTE ---
DATE: 06/02/2019 SUBJECTIVE: Patient seems to be doing okay. OBJECTIVE: Vital Signs: Patient is currently afebrile. His vital signs are stable. General: No acute distress. Cardiovascular: Regular rate and rhythm. Lungs: Grossly clear. Abdomen: Soft. Ileostomy functioning. Perineal wound stable. ASSESSMENT AND PLAN: A 69-year-old gentleman status post diverting loop ileostomy for perineal wound. Perineal wound. At this time, he is doing well. He is currently postoperative day #13 from his diverting loop ileostomy. He is having ostomy output. I think his ileus is resolved. From a surgical point of view, he probably will be discharged to a rehab facility and follow up with me at [facility]. cc: Nirmal Rouse MD
[2019-06-02] MEDS: PROTONIX PO SCH (06:53)
[2019-06-02] MEDS: HUMALOG SUBQ SCH ×4 (06:54→22:47)
[2019-06-02] MEDS: SANTYL OINT TOP SCH (09:32)
[2019-06-02] MEDS: LOVENOX SUBQ SCH (09:33)
[2019-06-02] MEDS: CORDARONE PO SCH (09:33)
[2019-06-02] MEDS: FERROUS SULFATE PO SCH (09:33)
[2019-06-02] MEDS: HUMULIN 70/30 SUBQ SCH ×2 (09:33→17:04)
[2019-06-02] MEDS: ASPIRIN PO SCH (09:33)
[2019-06-02] MEDS: TUMS PO SCH ×3 (09:33→17:03)
[2019-06-02] MEDS: FOLIC ACID PO SCH ×2 (09:33→22:45)
[2019-06-02] MEDS: SODIUM BICARBONATE PO SCH ×2 (09:33→22:45)
[2019-06-02] MEDS: PERIDEX MT SCH ×2 (09:33→22:45)
[2019-06-02] MEDS: NS 1,000 ML IV SCH ×2 (09:40→22:53)
[2019-06-02] MEDS ORDERED: SANTYL OINT TOP SCH (10:21)
[2019-06-02] MEDS: LEVAQUIN 500 MG in NS 100 ML IV SCH (13:18)
--- NOTE | 2019-06-02 20:07 | PROGRESS NOTE ---
DATE: 06/02/2019 INTERVAL HISTORY: Patient reports pain well controlled. Having adequate ostomy output. Wound VAC in place. No new complaints. REVIEW OF SYSTEMS: Twelve-point review of systems negative except as per interval history. LABS: Glucose 121 to 200. VITALS: T-max 98.8, pulse 75, respirations 20, blood pressure 129/59, O2 saturation 96% on room air. PHYSICAL EXAMINATION: General: No acute distress. Vitals: As above. HEENT: Normocephalic, atraumatic. Moist mucous membranes. Neck: No cervical adenopathy. Cardiovascular: Regular rate and rhythm. No murmurs noted. Pulmonary: Clear to auscultation bilaterally. No wheezing, rales, or rhonchi. Abdomen: Soft. Right lower quadrant ostomy with brown stool noted. Midline incision clean, dry, intact. Bowel sounds present. Extremities: Peripheral pulses intact. Minimal bilateral edema. Stable. : Perineal wounds with wound VAC. Neurologic: Cranial nerves grossly intact. Mild global weakness but no focal deficits identified. Psychiatric: Normal mood and affect. Awake, alert, oriented x3. ASSESSMENT/PLAN: 1. Basil gangrene, sepsis, perirectal and perianal abscesses. Cultures growing Staphylococcus hominis and E coli. Has had surgical debridement, diverting ostomy and wound VAC placement. He is today postop day 13, so we will likely discontinue antibiotics at discharge. 2. Postop ileus, now resolved. 3. Acute kidney injury on chronic kidney disease 3. Essentially resolved on last check. 4. History of cerebrovascular accident in the past, aware. 5. Coronary artery disease, stable. 6. Migraines. No headache currently. Stable. 7. Disposition: Anticipate discharge to rehab once placement obtained, hopefully this afternoon or tomorrow. [facility]
[2019-06-02] MEDS: LIPITOR PO SCH (22:45)
[2019-06-03] MEDS: MORPHINE IV PRN (02:54)
[2019-06-03] MEDS: HUMALOG SUBQ SCH ×2 (06:43→12:14)
[2019-06-03] MEDS: PROTONIX PO SCH (06:49)
[2019-06-03] MEDS: HUMULIN 70/30 SUBQ SCH (09:09)
[2019-06-03] MEDS: TUMS PO SCH ×2 (09:11→14:06)
[2019-06-03] MEDS: ASPIRIN PO SCH (09:11)
[2019-06-03] MEDS: CORDARONE PO SCH (09:11)
[2019-06-03] MEDS: SODIUM BICARBONATE PO SCH (09:11)
[2019-06-03] MEDS: FOLIC ACID PO SCH (09:11)
[2019-06-03] MEDS: FERROUS SULFATE PO SCH (09:11)
[2019-06-03] MEDS: PERIDEX MT SCH (09:12)
[2019-06-03] MEDS: LOVENOX SUBQ SCH (09:12)
--- NOTE | 2019-06-03 09:58 | GENERAL SURGERY PROGRESS NOTE ---
DATE: 06/03/2019 SUBJECTIVE: Patient seems to be doing okay. He had a wound VAC placed yesterday to his perineum. OBJECTIVE: Vital Signs: Patient is currently afebrile. His vital signs are stable. General: No acute distress. Cardiovascular: Regular rate and rhythm. Lungs: Grossly clear. Abdomen: Soft. Ileostomy functioning. Wound VAC to perineum. ASSESSMENT AND PLAN: A 69-year-old gentleman, currently postoperative day #14 from his diverting loop ileostomy. Postoperative state at this time, he seems to be doing well. I think from a surgical point of view, he can probably be discharged to a rehab facility with local wound care. cc: Nirmal Rouse MD
--- NOTE | 2019-06-03 12:04 | DISCHARGE SUMMARY ---
ADMISSION DATE: 05/18/2019 DISCHARGE DATE: 06/03/2019 ADMISSION DIAGNOSES: 1. Sepsis secondary to Basil's gangrene and the inferior perineum and perirectal/perianal abscess. 2. Diabetes mellitus type 2, uncontrolled. 3. History of coronary artery disease, status post coronary artery bypass graft. 4. History of colon polyps, benign, status post colectomy. 5. History of chronic kidney disease stage 3. 6. 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 DISCHARGE DIAGNOSES: 1. Migraines. 2. Sepsis due to Basil's gangrene, inferior perineum and perirectal/perianal abscess. 3. Diabetes mellitus type 2, uncontrolled. 4. History of coronary artery disease, status post coronary artery bypass graft. 5. History of colonic polyp, benign, status post colectomy. 6. History of chronic kidney disease stage 3. 7. History of suspected right hemispheric cerebrovascular accident with left residual hemiparesis. CONSULTS: 1. Wound Care. 2. Dr. Nirmal Rouse. 3. Dr. Kincaid. 4. Palliative care. SURGERIES/PROCEDURES: 1. I and D of perineal abscess on 05/18/2019, again on 05/19/2019, and again on 05/20/2019. 2. Diversion of colostomy on 05/20/2019. He had exploratory laparotomy with lysis of adhesions, and a diverting loop ileostomy. HOSPITAL COURSE: Mr. Filemon Solorzano is a 69-year-old male with a medical history of CVA, diabetes type 2, hypertension, CKD stage 3, CAD, CABG, colectomy, colostomy with reversal in 12/2018, who came in with complaints of nausea, fatigue, fever of 102.7, and a fall 5 days prior to admission. He was found to have leukocytosis, and a CT revealed Basil's gangrene in the perineal area. Initially, he was treated with IV fluids, vancomycin, and Zosyn. Dr. Kincaid and Dr. Rouse were consulted. Jaimes was placed, and he was taken for incision and drainage of the perineum and the perianal area for a total of 3 times during the following 2 days after admission, and even on 05/20/2019, he had an ileostomy placed. He eventually had an antibiotic that was changed to Levaquin. Wound Care performed wound care dressings, wet-to-dry, and then on 06/02/2019, switched him to a wound VAC. His white blood cells started to improve, and his vitals were stable. He was prepared for discharge to rehab and for wound care management. During his stay, Palliative Care was consulted, and he is currently a DO NOT RESUSCITATE level 1. DISCHARGE VITAL SIGNS: Temperature 97.5 degrees, heart rate 67, respiratory rate 14, blood pressure 140/58, O2 saturation 98% on room air. DISCHARGE LABORATORY DATA: This was back on 06/01/2019. White blood cell count 7000, hemoglobin 8, hematocrit 25, platelet count 310,000. Sodium 141, potassium 4.1, BUN 17, creatinine is 1.4. Glucose today was 127. Back on 06/01/2019, calcium 7.5. MICROBIOLOGY: Left buttock grew Escherichia coli and Staph hominis, resistant to penicillin and Bactrim. The anal area grew yeast. The stool was positive for blood on 05/18/2019. Flu was negative. Blood cultures on 05/18/2019 are negative. Urine culture on 05/19/2019 is negative. IMAGING: On 05/18/2019, pelvic CT scan showed Basil's gangrene of the perirectal area. On 05/22/2019, abdominopelvic CT showed recent abdominal surgery with an ileus and free intraperitoneal air, lower lobe pneumonia with atelectasis, cardiomegaly, and pleural effusions that are small, cholecystectomy, severe atherosclerosis, partial colon resection, and splenomegaly. On 05/23/2019, NG tube placement imaging shows the NG tube is in the abdomen. On 05/24/2019, abdominal x-ray shows no changes. It still showed diffuse ileus. On 05/25/2019, abdominal x-ray showed ileus unchanged. On 05/25/2019, chest x-ray showed bibasilar atelectasis. On 05/31/2019, abdominal x-ray showed ileus with no improvement, but has an ileostomy now. EKG on 05/22/2019 showed normal sinus rhythm, rate 68, QTc 535. DISCHARGE ACTIVITY: As tolerated. DISCHARGE DIET: GI soft. DISCHARGE MEDICATIONS: 1. Atorvastatin 40 mg p.o. nightly. 2. Amiodarone 200 mg p.o. daily. 3. Folic acid 1 mg p.o. twice daily. 4. Lisinopril 20 mg p.o. daily. 5. Protonix 40 mg p.o. daily. 6. Toprol-XL 25 mg p.o. daily. Prescriptions prescribed here: 1. Aspirin 81 mg p.o. daily. 2. Ferrous sulfate 325 mg p.o. daily. 3. Bryant 5 one tablet p.o. every 4 to 6 hours p.r.n. 4. Novolin 70/30, 25 units subcutaneously twice daily before meals. Medication that we have added is Levaquin 750 mg p.o. daily for another 5 days. PHYSICIAN FOLLOWUP: Dr. Stallings, Wound Care, and Dr. Rouse. May even possibly could use a followup with Dr. Kincaid. DISCHARGE INSTRUCTIONS: Your procedure was exploratory laparotomy, lysis of adhesion, loop ileostomy, irrigation and debridement. Your diagnosis was Basil's gangrene. If your condition changes, contact physician and/or return to the emergency department. Changes may include, but are not limited, to shortness of breath, increased fatigue, excessive bleeding, unexplained weight loss or gain, unmanageable pain, signs or symptoms of infection. Wound care, on 06/02/2019, your last assessment by Wound Care here showing that the slough is now down to approximately 10%, with the remainder of the tissue being healthy granulation. [id number] amount of serous drainage. Periwound is staying moist. Has some yeast, but improved since the last assessment. With the wound being clean, NPWT is now appropriate, and Dr. Rouse was made aware. Clean wound, periwound with Vashe, and prep the periwound well. Five pieces of black foam were placed between the two wounds. A good seal with the wound VAC is on at -125 mmHg continuous suction. He tolerated it well with premedications, and it needs to be changed again on Friday. The wound on the left measures 8.9 x 3.7 x 4.8, and the smaller on the right is 2.2 x 1.9 x 0.8 with a tunnel at the 12 o'clock of 0.9. [facility] Dictated by SONNY Diaz for Adelso Aguilar MD cc: SONNY Diaz Patient with fourniers gangrene. s/p debridement and now with wound vac in place. has likely had adequate antibiotics at this point but given onging slough, will do just a few more days at rehab. bandages c/d/i. lungs CTAB. Heart: RRR. MTDD
[2019-06-03] MEDS: NS 1,000 ML IV SCH (12:15)
[2019-06-03 12:21] VITALS: BP 139/53
[2019-06-03] MEDS: LEVAQUIN 500 MG in NS 100 ML IV SCH (14:06)
== END 2019-06-03 15:28 | DRG 853 ==
LOC: SUPCPDRO → ED 07:56 → 4N 12:08 → SUATTDRO 12:08 → 4N 05-25 16:14
PROVIDERS: ATTEND Internal Medicine
PROC: GE.COLS (2019-05-20 16:27)

== ENCOUNTER 2019-06-28 09:00 | Observation (INO) ==
--- NOTE | 2019-06-28 09:30 | PROVIDER DOCUMENTATION ---
HPI-Male Problem - General Stated Complaint: RECTAL BLEEDING Time Seen by Provider: 06/28/19 09:13 Source: patient, family (brother at bedside) Allergies/Adverse Reactions: Patient Allergies Allergy/AdvReac Type Severity Reaction Status Date / Time No Known Allergies Allergy Verified 05/18/19 08:13 Home Medications: Home Medication List Medication Instructions Recorded Confirmed Last Taken Type Amiodarone HCl 1 tab PO DAILY 05/04/19 06/28/19 06/27/19 History Folic Acid 1 tab PO BID 05/04/19 06/28/19 06/27/19 History Pantoprazole [Protonix] 1 tab PO DAILY 05/04/19 06/28/19 06/27/19 History ATORVAstatin [Lipitor] 40 mg PO QHS 05/18/19 06/28/19 06/27/19 History Ferrous Sulfate 325 mg PO DAILY tab 06/03/19 06/28/19 06/27/19 Rx Insulin NPH Hum/Reg Insulin Hm 25 unit SUBQ BID 06/28/19 06/28/19 06/27/19 History [Novolin 70-30 100 Unit/ml Vial] Metoprolol Succinate E.r. [Toprol 1 tab PO DAILY 06/29/19 06/29/19 Unknown History Xl] Hydrocodone/Acetaminophen [Carnegie 1 ea PO Q4-6H PRN PRN #20 tab 07/02/19 Unknown Rx 5-325 Tablet] LISINOpril [Prinivil] 0.5 tab PO QHS #0 07/02/19 06/28/19 06/27/19 Rx - History of Present Illness-Male Nature of Presenting Problem: 69 YO M pmh for forneirs gangreen and subsequent rerouted ilieostomy placed by Dr. Rouse 6 weeks ago, presents with c/o of rectal leakage and BRBPR this morning. Pt states he was also seen here on yesterday with similar complaints a nd some abdominal pain. Labs showed hbg at 9.5. Since he was discharged home, he has lost more blood which is why he returns today. Type and Screen previously shows Apositive, antibody negative. Location of Complaint: reports: other (generalized abdomen) Radiation: reports: none Onset/Duration: reports: 2 days ago Timing: reports: still present, getting worse Context/Activities at Onset: reports: none Urinary Symptoms: reports: no symptoms Similar Symptoms Previously?: Yes Recently seen or treated by another doctor?: Yes (seen here 1 day ago) Review of Systems - Adult - REVIEW OF SYSTEMS - ADULT Constitutional: denies: chills, fever Eyes: reports: no symptoms reported Ears, Nose, Mouth & Throat: reports: no symptoms reported Cardiovascular: reports: no symptoms reported Respiratory: reports: no symptoms reported Gastrointestinal: reports: see HPI, diarrhea, rectal bleeding Musculoskeletal: reports: no symptoms reported Integumentary: reports: skin sores/ulcer (open wound to perineum) Past History - Adult - PAST MEDICAL HISTORY-ADULT Review of Records: reports: Old Records Reviewed Major Childhood Illnesses: reports: denies history Cardiovascular: reports: CAD, HTN Respiratory: reports: denies history Gastrointestinal: reports: denies history Neurological: reports: denies history - PRIOR SURGERIES/PROCEDURES Surgical/Procedure History: reports: recent surgery, bowel surgery - FAMILY HISTORY Family History: HTN - SOCIAL HISTORY Smoking: denies Physical Exam-General - PHYSICAL EXAM-ADULT Initial Vital Signs Reviewed: Yes - CONSTITUTIONAL General Appearance: alert, other (pale) - EYES Eyes: PERRL/EOMI, pink conjunctivae - HEAD, EARS, NOSE, MOUTH & THROAT HENMT: other (dry membranes) - NECK Neck: supple - RESPIRATORY Respiratory: lungs clear, normal breath sounds, no pleuratic chest pain, no respiratory distress - CARDIOVASCULAR Cardiovascular: no edema - GASTROINTESTINAL (ABDOMEN) Abdominal Exam: normal bowel sounds, soft, other (midline scar, colostomy left side) - GENITOURINARY Male Genitalia: other (5cm x 3 cm open wound to perineum) - MUSCULOSKELETAL Back Exam: no CVA tenderness Extremity: normal inspection, no pedal edema - SKIN Integumentary: normal turgor, warm/dry - NEUROLOGIC Neurologic: grossly normal - PSYCHIATRIC Psych/Mental Status: normal mood/affect Progress - PLAN OF CARE/RESULTS Progress/Plan/Lab Results: Orders Category Date Time Status Admit - [facility] Routine AdmDCTranf 06/28/19 12:08 Active Activity - Up with Assistance ORDERED Care 06/28/19 12:08 Active Apply Mechanical Device [QM] ORDERED Care 06/28/19 13:01 Active FSBS/Accucheck Result AC + HS Care 06/28/19 13:01 Active Intake and Output-Strict ORDERED Care 06/28/19 13:01 Active Nursing- Assist w/ IS as order ORDERED Care 06/28/19 13:01 Active Nursing- MD Consult Request ROUTINE Care 06/28/19 12:08 Active Saline Loc NOW Care 06/28/19 09:33 Completed Vital Signs Order Q 8-HR ASSESS Care 06/28/19 13:01 Completed Wound Care DIRECTED Care 06/28/19 11:20 Completed Z-Document. for Tele Applied ORDERED Care 06/28/19 13:01 Completed Physician/Provider Consults Routine Cons 06/28/19 12:08 Ordered Social Service Consult Routine Cons 06/28/19 13:01 Active Wound Care/ET Consult Routine Cons 06/28/19 12:08 Active Diabetic Diet Diet 06/28/19 13:01 Completed A1C HGB W EST AVG GLUCOSE [CHEM] Stat Lab 06/28/19 10:12 Completed CBC WITH DIFF [HEME] Q24H Lab 06/29/19 06:35 Completed CBC WITH DIFF [HEME] Q24H Lab 06/30/19 06:31 Completed CBC WITH DIFF [HEME] Q24H Lab 07/01/19 06:46 Completed CBC WITH DIFF [HEME] Q24H Lab 07/02/19 06:09 Completed CBC WITH ELECTRONIC DIFF [HEME] Stat Lab 06/28/19 10:12 Completed COMPREHENSIVE METABOLIC PANEL [CHEM] Q24H Lab 06/29/19 06:35 Completed COMPREHENSIVE METABOLIC PANEL [CHEM] Stat Lab 06/28/19 10:12 Completed MAGNESIUM [CHEM] Q24H Lab 06/29/19 06:35 Completed OCCULT BLOOD DIAGNOSTIC [STOOL] Stat Lab 06/28/19 11:57 Completed PROTIME WITH INR [COAG] Stat Lab 06/28/19 11:08 Completed PTT [COAG] Stat Lab 06/28/19 11:08 Completed TYPE & SCREEN [BBK] Stat Lab 06/28/19 11:08 Completed Acetaminophen [Tylenol] Med 06/28/19 12:08 Discontinued 650 mg PO Q6H PRN PRN Insulin Human Regular [Humulin R] Med 06/28/19 16:00 Discontinued See Protocol SUBQ 0700,1100,1600,2100 Ondansetron [Zofran] Med 06/28/19 12:08 Discontinued 4 mg IV Q4H PRN PRN Incentive Spirometer Routine Oth 06/28/19 13:01 Completed Oxygen Device Routine Oth 06/28/19 13:01 Completed Pulse Oximetry Routine Oth 06/28/19 13:01 Completed Telemetry [OM.EQ] Routine Oth 06/28/19 13:01 Active Physical Therapy Eval/Treatment [OM.PT] Routine Ther 06/28/19 13:01 Active Transfer/Admit Order [TRANSFER] Routine Transfer 06/28/19 12:[address] Rouse again who said ok for pt to be admitted for wound care. will plan for admission. Result Diagrams: 07/02/19 06:09 07/01/19 06:46 - REASSESSMENT Reassessment #1 Time Reassessed: 11:25 Status: improving (labs ok, hg at 9.8, which is improved from 9.1 on yesterday. brother is in the room with pt. I discussed what Dr. Rouse said about wet to dry dressing and for pt to f/u in outpt clinic. Brother refuses to take pt home because he says he knows nothing about dressing change and his brother lives alone and there is no one to take care of him. states he has applied for home health care before but was denied to have a nurse come to the house. Will get case management involved today to see for [facility].) - CONSULTS/PCP/HOSPITALIST Notification #1 *Consult/PCP/Hospitalist*: Dr. Rouse Time Discussed: 11:25 (discussed placing wet to dry dressing and discharging pt home. Pt is to f/u with Dr. Rouse in outpt clinic on ) Consult Disposition: F/U in office #2 Consult: Dr. Key Time Discussed: 12:04 Consult Disposition: Will see in ED, Admit Departure - Departure Date of Disposition Decision: 06/28/19 Time of Disposition Decision: 12:03 DIAGNOSIS: Open wound Disposition: ADMITTED INPATIENT 09 Certified Medical Emergency: Emergent Condition: Stable - Critical Care Note This patient required my direct & personal management of CC.: No Attestation - Physician/ DEZ Attestation The physician spent face to face time with patient:: Yes Advanced Practice Provider documentation review:: Supervising physician onsite and consulted in the evaluation and care of this patient. The physician did have a face to face encounter with the patient.
[2019-06-28 10:24] LABS: BASO# 0.01 X1000 (0.0-0.2); BASO% 0.2 % (0.0-0.8); EOS# 0.13 X1000 (0.0-0.7); EOS% 2.4 % (0.0-10.0); HEMOGLOBIN 9.8 g/dL (14.0-18.0); IMM GRAN# 0.02 X1000 (0.0-0.04); IMM GRAN% 0.4 % (0.0-0.5); LYMPH% 24.5 % (20.5-51.1); MCH 29.1 PG (27-31); MCHC 32.7 g/dL (33-37); MONO# 0.74 X1000 (0.11-0.59); MONO% 13.9 % (1.7-9.3); MPV 7.9 FL (7.4-10.4); NEUT# 3.11 X1000 (1.4-6.5); NEUT% 58.6 % (42.2-75.2); PLT 214 X1000 (130-400); RBC 3.37 XMIL (4.7-6.1); RDW 13.5 % (11.5-14.5); WBC 5.31 X1000 (4.8-10.8)
[2019-06-28 10:40] LABS: ALB/GLOB RATIO 1.1; ALBUMIN 3.6 g/dL (3.5-5.0); CALCIUM 9.5 mg/dL (8.8-10.2); CREATININE 1.2 mg/dL (0.7-1.2); POTASSIUM 4.6 mmol/L (3.5-5.1); TOTAL BILIRUBIN 0.74 mg/dL (0.20-1.00); TOTAL PROTEIN 6.9 g/dL (6.3-8.3)
[2019-06-28 11:32] LABS: INR 1.2; PROTIME 15.4 Seconds (11.0-16.0); PTT 30.9 Seconds (22.3-41.8)
[2019-06-28] MEDS ORDERED: ZOFRAN IV PRN (12:08)
[2019-06-28] MEDS ORDERED: TYLENOL PO PRN (12:08)
[2019-06-28 13:53] LABS: HEMOGLOBIN A1C 6.3 % (4.8-6.0)
--- NOTE | 2019-06-28 14:56 | HISTORY AND PHYSICAL ---
PRIMARY CARE PROVIDER: Dr. Stallings. GENERAL SURGEON: Dr. Rouse. CHIEF COMPLAINT: Rectal stool and blood. HISTORY OF PRESENT ILLNESS: Mr. Filemon Solorzano is a 69-year-old, male with a medical history of colon cancer, status post partial colon resection, colostomy placement and reversal with another placement of colostomy, along with recent diverting loop ileostomy, with exploratory laparotomy and lysis of adhesions that was performed on 05/20/[address] Rouse. The patient had a necrotizing soft tissue infection of the perineum and the kelvin-rectum. He has since then been followed by Dr. Rouse. He has had a wound VAC. Came in yesterday, on the , with complaints of stool from the rectum. Was sent home and came in again today with continued complaints of stool from the rectum and also with blood from the rectum. He states that this morning, he actually felt like he needed to have a bowel movement, although he feels as though he is not supposed to be having bowel movements secondary to having a diverting loop ileostomy. He claims that it was mostly blood, minimal stool. Apparently, this all started on Friday and has continued since then. The ileostomy currently has green bile, brown watery drainage from the ileostomy site itself but does not appear to have any type of infection. The perirectal and perineal area has healing tissues, healthy tissues. There are no obvious signs of bleeding at this time. Hemoglobin and hematocrit are currently stable. He has had no more incidences. We will get an abdominal and pelvic CT to fully evaluate. PAST MEDICAL HISTORY: 1. Colon cancer. 2. Small bowel obstruction. 3. CAD with CABG. 4. Hypertension. 5. Diabetes mellitus type 2. 6. Hyperlipidemia. 7. Atrial fibrillation, on aspirin. 8. Denies GERD. He is off his proton pump inhibitor, according to him. 9. CVA with mild left hemiparesis. 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 SURGICAL HISTORY: 1. Partial colon resection. 2. Colostomy placement and reversal. 3. A diverting loop ileostomy, most recently in April 2019. 4. CABG x4. 5. Cholecystectomy. 6. Appendectomy. 7. Perineal and perirectal incision and debridement x2. That was also in April. SOCIAL HISTORY: Denies tobacco, alcohol, or illicit drug use. He lives at home alone. He was getting home health every other day. FAMILY HISTORY: Mother and father both had congestive heart failure. Mother also had diabetes and hypertension. ALLERGIES: No known drug allergies. HOME MEDICATIONS: Not reconciled yet. Update and confirm home medication order has been placed. REVIEW OF SYSTEMS: Fourteen point review of systems are complete and all were negative except for those mentioned above in the HPI. He only complains of tenderness around the rectum and that is with any type of palpation or touch. PHYSICAL EXAMINATION: VITAL SIGNS: Temperature 97.8 degrees, heart rate 57, respiratory rate 18, blood pressure 159/60, O2 saturation 100% on room air, 6 feet 2 inches tall, 184 pounds. BMI is 23.6. GENERAL: Mr. Filemon Solorzano is a 69-year-old, male who is in no acute distress. He is able to answer questions appropriately. HEENT: Atraumatic, normocephalic. Pupils equal, round, reactive to light. Extraocular movements intact. Mucous membranes are dry. NECK: Trachea midline. CARDIOVASCULAR: S1, S2. Bradycardic rate and rhythm. No rubs, gallops, or murmurs. No lower extremity edema. There are +2 dorsalis and radial pulses. Negative for JVD or carotid bruits. PULMONARY: Clear to auscultate bilateral breath sounds. No accessory muscle use or work of breathing noted. GI: Soft, nontender, nondistended. Positive bowel sounds x4. Ileostomy with mild oozing around it but wound care is currently at the bedside. No signs or symptoms of infection around the ostomy or the stoma. EXTREMITIES: Moves all extremities equally with just a trace amount of left hemiparesis. NEUROLOGIC: A and O x3. Follows commands. Sensory is intact. SKIN: Warm, dry, intact, and pale. LABORATORY DATA: White blood cells 5000, hemoglobin 9.8, hematocrit 30.0, platelet count 214,000. INR is 1.20, PTT is 30.9. Sodium 142, potassium 4.6, BUN 22, creatinine is 1.2, glucose 149, calcium 9.5. Bilirubin 0.74, AST 19, ALT 15, albumin 3.6. IMAGING: None. Abdominal and pelvic CT without contrast has been ordered. ASSESSMENT AND PLAN: 1. Nonhealing perirectal and perineal wound that has had two incisions and drainages by Dr. Rouse. Has also had a diverting loop ileostomy with complaints of stool and bleeding since Friday. Hemoglobin and hematocrit are currently stable. He did have a wound VAC on. Currently, the dressing changes have been changed to wet-to-dry. Wound care has been consulted. Dr. Rouse has been consulted and is aware of the patient's current status according to the emergency room physician. Tissue actually looks quite healthy. 2. Diabetes mellitus type 2. We will do pattern of blood glucoses, sliding scale insulin, diabetic diet. 3. Hypertension. We will continue home medications once they are verified. 4. Hyperlipidemia. 5. Atrial fibrillation. States he is only on aspirin at home. Still waiting for home medications to be verified. 6. History of cerebrovascular accident with left hemiparesis. No new changes on that. 7. History of coronary artery disease and coronary artery bypass graft. No complaints of chest pain. No changes on that. 8. Deep venous thrombosis prophylaxis. Sequential compression devices. 9. Anemia. We will do one more round of hemoglobin and hematocrit around 5 p.m. to see if there is any change. Again, Dr. Rouse is aware of the patient. Dictated by SONNY Diaz for Ludmila Key MD cc: SONNY Diaz MD I performed a face to face encounter on the patient. I reviewed all labs and imaging on the patient. I agree with the H&P as dictated. [facility]
[2019-06-28] MEDS: HUMULIN R SUBQ SCH ×2 (16:15→21:32)
--- NOTE | 2019-06-28 16:46 | Diag Imaging Result Doc PS360 ---
CT ABDOMEN/PELVIS W/O CONTRAST - 06/28/2019 INDICATION: c/o bright red blood from rectum COMPARISON: 05/22/2019 FINDINGS: The lung bases are clear and the heart size is normal. Anemia is present. There is significant splenomegaly. The spleen measures 17 x 6 cm. There is some trace free fluid in the upper abdomen. No radiodense renal stones. No hydronephrosis or hydroureter. Urinary bladder demonstrates diffuse wall thickening, nonspecific. There is a right lower quadrant ostomy. No significant constipation. No free air. No visible bowel obstruction. Severe vascular disease with severe calcification of all the arteries. There are moderate degenerative changes of the spine. No acute or suspicious bony lesion. IMPRESSION: Splenomegaly. Trace ascites in the upper abdomen. Other nonspecific findings as detailed above. This exam was performed using automated exposure control, adjustment of mA or kV according to patient size, and/or use of iterative reconstruction technique Electronically signed by Leonardo Ricci 06/28/2019 4:44 PM
[2019-06-28 18:55] LABS: HEMATOCRIT 26.8 % (42.0-52.0); HEMOGLOBIN 8.8 g/dL (14.0-18.0)
--- NOTE | 2019-06-28 20:55 | GENERAL SURGERY CONSULTATION ---
DATE: 06/28/2019 REQUESTING PHYSICIAN: The hospitalist. REASON FOR CONSULT: Rectal bleeding. HISTORY OF PRESENT ILLNESS: A 69-year-old gentleman well known to me has had a history of colon cancer who came in with essentially almost like a Basil-like scenario. I had multiple debridements and he had a issue with the perineal wound going near his rectum. I did a diverting loop ileostomy on him to divert fecal stream. I had seen him back in the office and he had been doing well. He started developing some bleeding out of his anus and came in. We had stopped the wound VAC to his wound but otherwise it has been healing up well. He is doing well otherwise. I was asked to weigh an opinion. PAST MEDICAL HISTORY: Includes colon cancer, small bowel obstruction, coronary artery disease, hypertension, diabetes mellitus type 2, hyperlipidemia, atrial fibrillation, acid reflux, CVA, history of Basil gangrene. SURGICAL HISTORY: Includes colon resection, colostomy placement and reversal, diverting loop ileostomy, CABG, cholecystectomy, appendectomy, perineal wound debridements. SOCIAL HISTORY: Denies alcohol, tobacco, or illicit drugs. FAMILY HISTORY: Both parents had congestive heart failure. ALLERGIES: None. HOME MEDICATIONS: Reviewed. REVIEW OF SYSTEMS: Full 14 systems reviewed and negative as specified in HPI. PHYSICAL EXAMINATION: Vital Signs: Patient is currently afebrile. His vital signs stable. General: No acute distress. HEENT: Normocephalic, atraumatic. Pupils equal, round, react to light. Mucous membranes moist. Oropharynx benign. Neck: Supple. Trachea midline. Cardiovascular: Regular rate and rhythm. Lungs: Grossly clear. Abdomen: Soft, nontender. Ileostomy is functioning with stool in the appliance. Perineal wound overall is healing well. No active bleeding noted from the anus. Extremities: Moves all extremities. Neurologic: Grossly intact. Skin: No signs of jaundice. Vascular: All extremities perfused. LABORATORY: Reviewed. Hematocrit is 30, platelet count 214,000, white blood cell count 5. Remainder of labs reviewed. ASSESSMENT AND PLAN: A 69-year-old gentleman with rectal bleeding with history of perineal wound. Perineal wound with rectal bleeding. At this time, we will monitor. If he has persistent rectal bleeding, may need to consider getting GI involved for proctoscopy. He has a very short rectum and it is mostly ileum and some of this could be from his diverting loop ileostomy, which was relatively recently, but otherwise we will continue and do local wound care to his perineum. I appreciate the consult. cc: Nirmal Rouse MD
[2019-06-29 07:31] LABS: BASO# 0.02 X1000 (0.0-0.2); BASO% 0.5 % (0.0-0.8); EOS# 0.17 X1000 (0.0-0.7); EOS% 4.2 % (0.0-10.0); HEMOGLOBIN 9.1 g/dL (14.0-18.0); LYMPH# 1.07 X1000 (1.2-3.4); LYMPH% 26.3 % (20.5-51.1); MCH 28.7 PG (27-31); MCHC 32.5 g/dL (33-37); MCV 88.3 FL (81-99); MONO# 0.51 X1000 (0.11-0.59); MONO% 12.5 % (1.7-9.3); MPV 8.2 FL (7.4-10.4); NEUT% 56.5 % (42.2-75.2); PLT 225 X1000 (130-400); RBC 3.17 XMIL (4.7-6.1); RDW 13.3 % (11.5-14.5); WBC 4.07 X1000 (4.8-10.8)
[2019-06-29] MEDS ORDERED: INSULIN PEN NEEDLES ONE (07:45)
[2019-06-29 07:48] LABS: ALB/GLOB RATIO 1.2; ALBUMIN 3.5 g/dL (3.5-5.0); CALCIUM 8.9 mg/dL (8.8-10.2); CREATININE 1.3 mg/dL (0.7-1.2); MAGNESIUM 1.7 mg/dL (1.5-2.7); POTASSIUM 4.5 mmol/L (3.5-5.1); TOTAL BILIRUBIN 0.7 mg/dL (0.20-1.00); TOTAL PROTEIN 6.5 g/dL (6.3-8.3)
[2019-06-29] MEDS: HUMULIN R SUBQ SCH ×4 (07:56→21:08)
[2019-06-29] MEDS: CORDARONE PO SCH (08:56)
[2019-06-29] MEDS: FOLIC ACID PO SCH ×2 (08:56→21:06)
[2019-06-29] MEDS: PRILOSEC PO SCH (08:57)
[2019-06-29] MEDS: FERROUS SULFATE PO SCH (08:57)
[2019-06-29] MEDS: HUMULIN 70/30 SUBQ SCH ×2 (10:46→21:07)
--- NOTE | 2019-06-29 10:56 | GENERAL SURGERY PROGRESS NOTE ---
DATE: 06/29/2019 SUBJECTIVE: Patient seems to be doing okay. He has had a little bit of bowel movements out of his rectum, but he is still having ostomy output. OBJECTIVE: Vital Signs: Patient is currently afebrile. His vital signs are stable. General: No acute distress. HEENT: Normocephalic, atraumatic. Pupils equal, round, and reactive to light. Mucous membranes moist. Oropharynx benign. Neck: Supple. Trachea midline. Cardiovascular: Regular rate and rhythm. Lungs: Grossly clear. Abdomen: Soft and nontender. Ileostomy is functioning. Perineum unchanged. ASSESSMENT AND PLAN: A 69-year-old gentleman with a perineal wound and possible rectal bleeding. 1. Rectal bleeding. At this time, his hematocrit did get down to 26.8. If it continues to decline, may need to get GI to do a proctoscopy. Otherwise, continue supportive care. 2. Perineal wound. At this time, continue local wound care. cc: Nirmal Rouse MD
--- NOTE | 2019-06-29 15:17 | Diag Imaging Result Doc PS360 ---
EXAM: CHEST-1 VIEW 06/29/2019 HISTORY: REHAB TECHNIQUE: AP portable upright at 1508 COMMENT: There is no evidence of acute cardiac or pulmonary disease. The atelectasis which was present on 05/25/2019 has largely resolved and the inspiration is better. IMPRESSION: No acute disease. Electronically signed by Shashi Kingston 06/29/2019 3:15 PM
[2019-06-29] MEDS: NORCO-5 PO PRN (21:05)
[2019-06-29] MEDS: PRINIVIL PO SCH (21:05)
[2019-06-29] MEDS: LIPITOR PO SCH (21:06)
--- NOTE | 2019-06-29 22:35 | PROGRESS NOTE ---
DATE: 06/29/2019 INTERVAL HISTORY: No acute events overnight. He was hemodynamically stable. His blood pressure was normal. SUBJECTIVE: He is denying chest pain, shortness of breath, nausea, vomiting, abdominal pain. He is feeling better. He states he has not noticed blood later part of the day coming out from his rectum, though he was not sure because his dressing was applied. VITALS: Temperature 98.5 degrees, pulse 62, respiratory 18, blood pressure 140/60. He is saturating 100% on room air. PHYSICAL EXAMINATION: General: Not in acute distress. Mouth: Oral cavity is moist. Lungs: Air entry bilaterally equal. No wheeze, rhonchi, crackles. Cardiovascular: S1, S2 normal. No murmur or gallop. Abdomen: Soft. He has a midline healed scar of laparotomy. Right lower quadrant ileostomy with brownish output. Extremities: No lower extremity edema. On examination, he does have left gluteal wound which is healing well. Rectal: He has a rectum with brownish stool coming out without any visible blood or melena. LABS: Suggestive of normocytic anemia, normal platelet count. He does appear to have mild elevation of creatinine. Microbiology: His occult blood stool was negative. IMAGING: Chest x-ray today morning did not have any acute disease. ASSESSMENT AND PLAN: 1. Recent history of Basil gangrene and necrotizing infection with perirectal and perineal abscess with Staphylococcus and Escherichia coli requiring multiple surgical debridement and diverting loop ileostomy in April 2019. His wound VAC was removed in the emergency room since he was having bleeding from around the rectum. Currently, I did not see any active bleed. I will continue wound dressing as per surgical team's recommendation. 2. Reported history of blood coming out from the rectum. I did not see evidence of blood when I looked at his rectum, though, surprisingly he is having stool output through the rectum. Surgical team on board and recommends conservative management. If he started bleeding again, I will consult Gastroenterology team on June 30. Currently, his hemoglobin is stable. 3. Anemia of chronic disease. Currently stable. I will continue his home ferrous sulfate and folic acid. 4. History of insulin-dependent diabetes mellitus. Continue his home insulin regimen. 5. History of coronary artery disease status post coronary artery bypass graft. I will continue his home aspirin, statin, metoprolol. 6. I will also continue his home amiodarone for history of cerebrovascular accident. DISPOSITION: I will monitor patient inside the hospital. Plan of care discussed with him. His questions have been answered. cc: Cholo Echavarria MD
[2019-06-30] MEDS: PRILOSEC PO SCH (06:18)
[2019-06-30] MEDS: HUMULIN R SUBQ SCH ×4 (06:38→21:52)
[2019-06-30 07:05] LABS: BASO# 0.01 X1000 (0.0-0.2); BASO% 0.2 % (0.0-0.8); EOS# 0.13 X1000 (0.0-0.7); EOS% 2.6 % (0.0-10.0); HEMATOCRIT 29.7 % (42.0-52.0); HEMOGLOBIN 9.6 g/dL (14.0-18.0); IMM GRAN# 0.02 X1000 (0.0-0.04); IMM GRAN% 0.4 % (0.0-0.5); LYMPH# 1.53 X1000 (1.2-3.4); LYMPH% 30.4 % (20.5-51.1); MCH 28.4 PG (27-31); MCHC 32.3 g/dL (33-37); MCV 87.9 FL (81-99); MONO# 0.56 X1000 (0.11-0.59); MONO% 11.1 % (1.7-9.3); MPV 8.2 FL (7.4-10.4); NEUT# 2.79 X1000 (1.4-6.5); NEUT% 55.3 % (42.2-75.2); PLT 243 X1000 (130-400); RBC 3.38 XMIL (4.7-6.1); RDW 13.4 % (11.5-14.5); WBC 5.04 X1000 (4.8-10.8)
[2019-06-30] MEDS: TOPROL XL PO SCH (10:02)
[2019-06-30] MEDS: FOLIC ACID PO SCH ×2 (10:02→21:51)
[2019-06-30] MEDS: HUMULIN 70/30 SUBQ SCH ×2 (10:02→21:52)
[2019-06-30] MEDS: CORDARONE PO SCH (10:02)
[2019-06-30] MEDS: FERROUS SULFATE PO SCH (10:02)
--- NOTE | 2019-06-30 13:32 | GENERAL SURGERY PROGRESS NOTE ---
DATE: 06/30/2019 SUBJECTIVE: Patient seems to be doing okay. OBJECTIVE: Vital Signs: Patient is currently afebrile. His vital signs are stable. General: No acute distress. Cardiovascular: Regular rate and rhythm. Lungs: Grossly clear. Abdomen: Soft and nontender. Ileostomy functioning. Perineal wound unchanged. No active bleeding noted from his anus. LABORATORY: Reviewed from yesterday. ASSESSMENT AND PLAN: A 69-year-old gentleman with perineal wound with diverting loop ileostomy. 1. Rectal bleeding. At this time, I think it is stabilized. We will get GI involved. They may need to do a proctoscopy. 2. Perineal wound. At this time, continue local wound care. We will ask Isi Castle to replace the wound VAC. cc: Nirmal Rouse MD
[2019-06-30] MEDS: NORCO-5 PO PRN (16:22)
[2019-06-30] MEDS: PRINIVIL PO SCH (21:51)
[2019-06-30] MEDS: LIPITOR PO SCH (21:51)
[2019-07-01] MEDS: PRILOSEC PO SCH (06:41)
[2019-07-01] MEDS: HUMULIN R SUBQ SCH ×4 (06:45→22:36)
[2019-07-01 07:35] LABS: BASO# 0.02 X1000 (0.0-0.2); BASO% 0.4 % (0.0-0.8); EOS# 0.19 X1000 (0.0-0.7); EOS% 3.6 % (0.0-10.0); HEMATOCRIT 30.4 % (42.0-52.0); HEMOGLOBIN 10.2 g/dL (14.0-18.0); IMM GRAN# 0.04 X1000 (0.0-0.04); IMM GRAN% 0.8 % (0.0-0.5); LYMPH% 22.9 % (20.5-51.1); MCH 29.2 PG (27-31); MCHC 33.6 g/dL (33-37); MCV 87.1 FL (81-99); MONO# 0.77 X1000 (0.11-0.59); MONO% 14.7 % (1.7-9.3); MPV 8.2 FL (7.4-10.4); NEUT# 3.02 X1000 (1.4-6.5); NEUT% 57.6 % (42.2-75.2); PLT 232 X1000 (130-400); RBC 3.49 XMIL (4.7-6.1); RDW 13.4 % (11.5-14.5); WBC 5.24 X1000 (4.8-10.8)
[2019-07-01 07:45] LABS: CALCIUM 9.7 mg/dL (8.8-10.2); MAGNESIUM 1.8 mg/dL (1.5-2.7); POTASSIUM 4.7 mmol/L (3.5-5.1)
--- NOTE | 2019-07-01 08:17 | PROGRESS NOTE ---
DATE: 06/30/2019 INTERVAL HISTORY: No acute events overnight. His vitals have been unremarkable. His hemoglobin has remained stable. Surgical team has recommended GI evaluation for possible proctoscopy. SUBJECTIVE: Patient denies any chest pain, shortness of breath, nausea, vomiting. He states he has not been having any stool from his rectum anymore. VITALS: Temperature 98.3 degrees, pulse 54, respiratory rate 20, blood pressure 124/53, saturating 100% on room air. PHYSICAL EXAMINATION: Not in acute distress. Oral cavity is moist. Air entry is bilaterally equal. No wheeze, rhonchi, or crackles. S1, S2 normal. No murmur, rub, or gallop. Abdomen: Soft, nontender. No lower extremity edema. He has right-sided lower quadrant ileostomy. On my yesterday's examination, he had a left gluteal wound which was healing well and he had stool coming out of his rectum without any blood or melena. LABS: Suggestive of stable hemoglobin, stable platelet count, normal blood glucose. MICROBIOLOGY: No positive data. IMAGING: No new imaging. ASSESSMENT AND PLAN: 1. Reported history of rectal bleeding with stool. Currently, hemoglobin is stable. I will consult gastroenterology to see if he would need proctoscopy in the future. Surgical team on board. 2. History of Basil's gangrene and necrotizing infection of perirectal and perineal abscess with staphylococcus and Escherichia coli requiring multiple surgical debridements and diverting loop ileostomy in April 2019. He had a wound VAC on his gluteal region which was removed since it was bleeding. Currently, it is healing well. Continue dressing changes as per surgery recommendation. 3. Anemia of chronic disease. Continue home ferrous sulfate with folic acid; continue home insulin regimen for insulin-dependent diabetes mellitus with blood sugars that are well controlled; continue home aspirin, statin, and metoprolol for history of coronary artery bypass graft; amiodarone for history of cerebrovascular accident. 4. Disposition. Awaiting further surgery and gastroenterology recommendation. If no inpatient proctoscopy is planned, my plan is to discharge him in the next 24 hours. All of patient's questions have been answered. cc: Cholo Echavarria MD
[2019-07-01] MEDS: TOPROL XL PO SCH (09:12)
[2019-07-01] MEDS: FERROUS SULFATE PO SCH (09:13)
[2019-07-01] MEDS: FOLIC ACID PO SCH ×2 (09:13→20:09)
[2019-07-01] MEDS: CORDARONE PO SCH (09:14)
[2019-07-01] MEDS: HUMULIN 70/30 SUBQ SCH ×2 (09:20→22:36)
--- NOTE | 2019-07-01 12:17 | GENERAL SURGERY PROGRESS NOTE ---
DATE: 07/01/2019 SUBJECTIVE: Patient seems to be doing okay. He had a wound VAC placed. OBJECTIVE: Vital Signs: Patient is currently afebrile. His vital signs are stable. General: No acute distress. Cardiovascular: Regular rate and rhythm. Lungs: Grossly clear. Abdomen: Soft. Ileostomy functioning. Perineal wound with wound VAC in place. ASSESSMENT AND PLAN: 1. A 69-year-old gentleman with history of perineal wound and diverting loop ileostomy. 2. Rectal bleeding. At this time, his hematocrit is stabilized. We will just continue to follow. 3. Perineal wound. At this time, he has a wound VAC placed. It is covering his anus, which may contribute to why every time he has his wound VAC changed at the nursing facility they seem to have drainage. May need to try to keep the anus not covered if possible, but given his wound location, this might be technically difficult. It may just have to be expected when he has his wound VAC changed. Otherwise, continue current treatment. Overall, his wound is improving. cc: Nirmal Rouse MD
--- NOTE | 2019-07-01 14:02 | GASTROENTEROLOGY CONSULTATION ---
DATE: 07/01/2019 REASON FOR CONSULTATION: Rectal bleeding. HISTORY OF PRESENT ILLNESS: Mr. Solorzano is a 69-year-old male with a history of colon cancer, status post colon resection with colostomy placement and reverse of colostomy with another placement of a colostomy, along with a recent diverting loop ileostomy with exploratory laparotomy and lysis of adhesions for treatment of Basil's gangrene. that was performed on 05/20/2019 at [facility] by Dr. Rouse. The patient has Basil's gangrene in the perineal area where he has a wound VAC placed. The patient was in the hospital since Friday. He came to the hospital for rectal bleeding. He said the bleeding was bright red and he had associated symptoms of weakness and dizziness, but has denied any nausea or vomiting. He did mention that he has generalized abdominal pain and around his perineal area due to his perineal wound. The patient has a colostomy in the right side of his abdomen. He said that the colostomy was placed 6 weeks back. He has had multiple colon resections. The first one he had in August 2018 when they found out that he had a mass in his colon and it was taken off. This was in [place]. End of October he moved back to [place]. Patient has been in and out of the hospital since February 2019 The patient's hemoglobin today is 10.2 and hematocrit is to 30.4. PAST MEDICAL HISTORY: Colon cancer, small bowel obstruction, coronary artery disease with CABG and stent placement, hypertension, diabetes type 2, hyperlipidemia, atrial fibrillation. The patient is on aspirin, CVA with left hemiparesis, Basil gangrene in the perineal and perirectal areas. SURGERIES: The patient has had multiple colon resection, colostomy placement and reversal, diverting loop ileostomy, CABG x4, cholecystectomy, appendectomy, and perineal and perirectal incision debridement. SOCIAL HISTORY: The patient lives alone at home. He is a . He has 3 kids. He has denied any alcohol, smoking, or illicit drugs. FAMILY HISTORY: His mother and father both had heart attack. ALLERGIES: No known drug allergies. HOME MEDICATIONS: Folic acid 1 mg twice a day, lisinopril 1 tablet at bedtime, Protonix 40 mg 1 tablet daily, amiodarone 200 mg 1 tablet daily, atorvastatin 40 mg at bedtime, ferrous sulfate 325 mg daily, hydrocodone/acetaminophen 5/325 one tablet every 6 hours as needed, insulin NPH 70/30 at 25 units subcutaneously twice a day, metoprolol 1 tablet daily. REVIEW OF SYSTEMS: As per HPI. Otherwise, 12 point review of system is negative. PHYSICAL EXAMINATION: Vital Signs: Temperature 97.9 degrees, pulse 58, respirations 18, blood pressure 133/46, oxygen saturation 100% on room air. The patient's weight is 173 pounds. BMI is 22.2 kg/m2. General: He is alert, oriented x3. Answering questions appropriately and in no acute distress. HEENT: Pale conjunctivae. No icterus. PERRL. Neck: Supple. Lungs: Clear to auscultation in the anterior villegas. Cardiovascular: The patient is bradycardic. Abdomen: Soft, tender around the ostomy area, has an ostomy bag on the right side of the abdomen. Active bowel sounds heard in all 4 quadrants. Extremities: He has a wound VAC in his perineal area. No clubbing, no cyanosis, no edema. Pedal pulses 2+ present bilaterally. Neurologic: Alert oriented x3. Nonfocal. Cranial nerves 2-12 grossly intact. LABORATORIES: WBCs is 5.24, RBC 3.49, hemoglobin 10.2, hematocrit 30.4, platelet count 232,000. Sodium 134, potassium 4.7, chloride 102, carbon dioxide 17, anion gap 15, BUN 43, creatinine 2, glucose 216, calcium 9.7, magnesium 1.8. Abdomen and pelvis CT on 06/28/2019 showed splenomegaly, trace ascites in the upper abdomen. Chest x-ray showed no acute disease. IMPRESSION AND PLAN: Rectal bleeding Anemia Basil's gangrene s/p diversion loop ileostomy and wound vac placement at perineum. History of colon cancer s/p colostomy and reversal History of CAD s/p CABG x 4 History of CVA Atrial fibrillation Diabetes Type II Hypertension PLAN: Mr. Solorzano is a 69 year old male with the history of colon cancer s/p colostomy and Basil's gangrene, GI has been consulted for his rectal bleeding. Patient has a wound Vac in his perineal and perirectal area. We are planning to do a flexible sigmoidoscopy tomorrow to rule out the cause of his bleeding. The patient is currently on Prilosec 20 mg daily. Further plan of care will be based on the full flexible sigmoidoscopy findings. We have discussed the risks, benefits, and alternatives of the procedure, patient acknowledges understanding of the plan of care. We will continue to monitor the patient and follow the plan of care per PCP. This plan was discussed with Dr. Cali. Thank you for your consult. Please call us for any further questions or concerns. Dictated by SONNY Thakur for Jono Cali MD cc: Jono Cali MD I have seen and examined the patient myself and I agree with the above plan of care. I have discussed the above with the patient and all questions were answered. Please call us with any questions or concerns. CONSTANTIN
[2019-07-01] MEDS ORDERED: NS 1,000 ML IV SCH (15:30)
--- NOTE | 2019-07-01 19:42 | PROGRESS NOTE ---
DATE: 07/01/2019 INTERVAL HISTORY: No acute events overnight. Mr. Solorzano states he has not noticed any more blood coming out of his rectum, and he states he still had a little bit of stool output in his rectum. He denies any chest pain, shortness of breath, nausea, or vomiting. I discussed with him about Gastroenterology evaluation, who has recommended flexible sigmoidoscopy. Mr. Solorzano is in agreement. He also tells me that he would rather go to rehab than go back home because he thinks that he is still in need of some help. Senior Sales Manager team is on board for that. VITAL SIGNS: Temperature 98.8 degrees, pulse 70, respiratory rate 20, blood pressure currently 190/70. He is saturating 100% on room air. Otherwise, most blood pressures have been within acceptable range. PHYSICAL EXAMINATION: General: Not in acute distress. Oral cavity: Moist. Lungs: Air entry bilaterally equal. No wheezing, rhonchi, or crackles. Heart: S1, S2 normal. No murmur or gallop. Abdomen: Soft. He has right-sided lower quadrant ileostomy with yellowish output. Extremities: No lower extremity edema. Neurologic: He is alert and oriented x3. He is answering all questions appropriately. LABORATORY DATA: Hemoglobin is stable with 10.2, platelet count of 232,000. He does have a BUN of 43 and creatinine of 2, for which I am stopping his lisinopril. He has only voided 200 mL of urine, so I will go ahead and give him some intravenous fluids. IMAGING: No new imaging. ASSESSMENT AND PLAN: 1. Reported history of rectal bleeding, with stool coming out of the rectum. Currently, hemoglobin is stable. Considering prior history of colon cancer, GI team is planning flexible sigmoidoscopy. 2. 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 His wound vacuum assisted closure has been reapplied. His wound currently appears to be healing, though it is still large enough and has not completely healed. He would need outpatient surgery followup. 3. Anemia of chronic disease, as well as acute blood loss anemia associated with rectal bleed, now stable. 4. Others. Continue insulin for insulin-dependent diabetes mellitus, aspirin, atorvastatin, metoprolol for history of coronary artery disease requiring coronary artery bypass graft in the past, and amiodarone for history of cerebrovascular accident. DISPOSITION: The patient wanted to go to rehab. If his flexible sigmoidoscopy is uneventful, then my plan is to discharge him to rehab. Insurance approval is pending. Plan of care discussed with the patient. His questions have been answered. cc: Cholo Echavarria MD
[2019-07-01] MEDS: LIPITOR PO SCH (20:09)
[2019-07-01] MEDS: NORCO-5 PO PRN (23:18)
[2019-07-02] MEDS: HUMULIN R SUBQ SCH (06:55)
[2019-07-02] MEDS: PRILOSEC PO SCH (06:55)
[2019-07-02 07:20] LABS: BASO# 0.02 X1000 (0.0-0.2); BASO% 0.4 % (0.0-0.8); EOS% 3.9 % (0.0-10.0); HEMATOCRIT 32.2 % (42.0-52.0); HEMOGLOBIN 10.8 g/dL (14.0-18.0); LYMPH# 1.39 X1000 (1.2-3.4); LYMPH% 26.9 % (20.5-51.1); MCH 29.1 PG (27-31); MCHC 33.5 g/dL (33-37); MCV 86.8 FL (81-99); MONO# 0.79 X1000 (0.11-0.59); MONO% 15.3 % (1.7-9.3); MPV 8.3 FL (7.4-10.4); NEUT# 2.76 X1000 (1.4-6.5); NEUT% 53.5 % (42.2-75.2); PLT 221 X1000 (130-400); RBC 3.71 XMIL (4.7-6.1); RDW 13.6 % (11.5-14.5); WBC 5.16 X1000 (4.8-10.8)
[2019-07-02 07:55] LABS: EOS 6 % (1-10); LYMPHS 34 % (21-51); MONO 10 % (1-9); SEGS 50 % (42-75)
[2019-07-02] MEDS ORDERED: DIPRIVAN 1% ONE (09:27)
[2019-07-02] MEDS ORDERED: XYLOCAINE-MPF 2% ONE (09:28)
[2019-07-02] MEDS ORDERED: EPHEDRINE ONE (10:34)
--- NOTE | 2019-07-02 10:39 | ENDOSCOPY OPERATIVE NOTE ---
[facility] ENDOSCOPY OPERATIVE NOTE , PATIENT: Filemon Solorzano ADM DATE: 07/02/2019 MR #: [id number] : 1950 FLEXIBLE SIGMOIDOSCOPY PROCEDURE REPORT PROCEDURE DATE: 07/02/2019 SURGEON: Cholo Pino MD STATUS: inpatient DISPLAY SPECIALIST: PREOPERATIVE DIAGNOSIS: The patient is a 69 yr old male here for a colonoscopy due to hematochezia. PROCEDURE PERFORMED: Sigmoidoscopy, diagnostic MEDICATIONS: Per Anesthesia PREP TYPE: Tap Water Enema PREP QUALITY: The overall prep quality was adequate. ESTIMATED BLOOD LOSS: None CONSENT: The patient understands the risks and benefits of the procedure and understands that these r isks include, but are not limited to: sedation, allergic reaction, infection, perforation and/or bleeding. Alternative means of evaluation and treatment include, among others: physical exam, x-rays, and/or surgical intervention. The patient elects to proceed with this endoscopic procedure. HISTORY AND PHYSICAL: 07/02/2019 DESCRIPTION OF PROCEDURE: During the intra-op preparation period all mechanical and medical equipment was checked for proper function. Hand hygiene and appropriate measures for infection prevention was taken. After the risks, benefits and alternatives of the procedure were thoroughly explained, Informed consent was verified, confirmed and timeout was successfully executed by the treatment team. A digital exam revealed no abnormalities of the rectum. The SP36-m01B ([id number]) endoscope was introduced through the anus and advanced to the faye-terminal ileum up to 30cm . The instrument was then slowly withdrawn as the colon was fully examined. COLON FINDINGS: Normal faye-terminal ileum. Intact ileorectal anastomosis with visible stables. Ye llow liquid stool found in rectum. no stigmata of recent bleeding. Normal rectum. Small internal hemorrhoids were foun d. Retroflexion was not performed. The scope was then completely withdrawn from the patient and the procedure termina phoebe. SPECIMENS REMOVED: No ADVERSE EVENTS: There were no complications. POSTOPERATIVE DIAGNOSIS: 1. Normal faye-terminal ileum 2. Intact ileorectal anastomosis with visible stables 3. Yellow liquid stool found in rectum. no stigmata of recent bleeding 4. Small internal hemorrhoids RECOMMENDATIONS: Bleeding likely from wound vs. small internal hemorrhoids. Defer woundvac management to surgery Will sign off. Please call with questions RECALL: Cholo Pino MD eSigned: Cholo Pino MD 07/02/2019 10:38 AM cc: PATIENT NAME: Filemon Solorzano MR#: [id number]
[2019-07-02] MEDS: TOPROL XL PO SCH (12:30)
[2019-07-02] MEDS: FOLIC ACID PO SCH (12:30)
[2019-07-02] MEDS: FERROUS SULFATE PO SCH (12:30)
[2019-07-02] MEDS: CORDARONE PO SCH (12:30)
[2019-07-02] MEDS: HUMULIN 70/30 SUBQ SCH (12:30)
[2019-07-02 13:12] VITALS: BP 145/64
--- NOTE | 2019-07-02 14:41 | DISCHARGE SUMMARY ---
ADMISSION DATE: 06/28/2019 DISCHARGE DATE: 07/02/2019 DISCHARGE DISPOSITION: Rehab. DISCHARGE CONDITION: Hemodynamically stable. No bleeding through the rectum. Minimal stool output through rectum. Lower GI scope did not detect active bleeding. He would need a wound VAC at the rehab for his buttock wound. DISCHARGE DIAGNOSES: 1. Reported rectal bleed which eventually was thought to be related to bleeding from his left buttock wound. 2. Acute blood loss anemia which did not require transfusion. 3. Acute kidney injury due to poor oral intake OTHER DIAGNOSES: 1. 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 2. Anemia of chronic disease. 3. Insulin-dependent diabetes mellitus. 4. History of essential hypertension. 5. History of coronary artery disease with coronary artery bypass graft around 2013. 6. History of cerebrovascular accident. DISCHARGE MEDICATIONS: Atorvastatin 40 mg at nighttime, amiodarone 200 mg daily, folic acid 1 tablet b.i.d., insulin NPH, Humulin regular 70/30, 25 units subcutaneously b.i.d. with meals, pantoprazole 40 mg daily, metoprolol extended release 25 mg daily, lisinopril 10 mg at nighttime, ferrous sulfate 325 mg daily, hydrocodone acetaminophen 1 tablet every 4 to every 6 hours as needed for pain, 20 tablets have been prescribed. CONSULTATIONS DURING HOSPITAL ADMISSION: 1. GI, Dr. Cali. 2. General Surgery, Dr. Rouse. VITAL SIGNS: At the time of discharge, temperature 97.8 degrees, pulse 60, blood pressure 130/50, saturating 98% on room air. PHYSICAL EXAMINATION: General: He is not in any acute distress. HEENT: Oral cavity is moist. Lungs: Air entry bilaterally equal. No wheeze, rhonchi, or crackles. Cardiovascular: S1, S2 normal. No murmur, rub, or gallop. Abdomen: Soft. He has a right lower quadrant ileostomy with liquidy output. Extremities: No lower extremity edema. He has a wound over his left buttock, which appears to be healing well. It is about at least 15 cm linear and 5 cm deep on my previous examination. SIGNIFICANT LABORATORY DATA: During hospital admission on discharge. On presentation, his hemoglobin was 9.8 which improved to 10.8 at the time of discharge, WBC 5.1, platelet 221,000. His INR is 1.2, PTT 30.9, BUN 22, creatinine 1.2. He does have chronic kidney disease stage III with his GFR around 40s to 50s. His blood glucose is 131. His stool occult blood test was negative. IMAGING: Abdomen and pelvis CT on presentation had splenomegaly, trace ascites without any specific other findings. Chest x-ray on 06/29/2019 did not have any acute disease. HOSPITAL COURSE SUMMARY: Mr. Solorzano is a 69-year-old man who was admitted inside the hospital in April 2019 for necrotizing infection of his perineum and possibly Basil gangrene requiring multiple debridements and diverting loop ileostomy, who was initially sent to rehab and from rehab, he went home. However, he had noticed some blood coming out from the rectum. Apparently, he had a wound VAC which was covering his wound as well as rectum considering the location of the wound and the wound VAC was removed outpatient because of his rectal bleed complaint. However, he continues to complain of bleeding from the rectum, so he came to the emergency room and he was admitted for further management. While inside the hospital, he did not have any active rectal bleed, though he intermittently had some stool output through the rectum which was thought to be normal. GI was consulted and he underwent lower GI scope on 07/02/2019. The official read is pending, but I have been informed by the GI doctor that it was normal terminal ileum, intact ileorectal anastomosis with, yellow liquid stool found in the rectum, no stigmata of recent bleeding and small internal hemorrhoids. It was thought that his complaints of rectal bleed was actually bleeding from his left buttock wound, which could have made worse when a wound VAC was applied. However, bleeding had spontaneously stopped so his wound VAC was reapplied. He would go to rehab where they would apply a wound VAC and he would have outpatient followup with Dr. Rouse. At the time of discharge, he was given IV fluids considering his bump in creatinine and his lisinopril was held. He would resume his lisinopril while going to the rehab. He should have repeat kidney function 3 days after. TIME SPENT: More than 30 minutes of discharge time was spent in taking of this patient. cc: MD CONSTANTIN Pdailla
--- NOTE | 2019-07-02 15:52 | GENERAL SURGERY PROGRESS NOTE ---
DATE: 07/02/2019 SUBJECTIVE: Patient seems to be doing okay. He has not had much more to come out of his bottom. No real bleeding. OBJECTIVE: Vital signs: Patient is currently afebrile. His vital signs stable. General: No acute distress. Cardiovascular: Regular rate and rhythm. Lungs: Grossly clear. Abdomen: Soft, ileostomy viable. Perineal wound with wound VAC in place. LABORATORY: Reviewed from yesterday. White blood cell count 5, hematocrit 30, remainder of labs reviewed. ASSESSMENT AND PLAN: A 69-year-old gentleman with perineal wound and rectal bleeding. 1. Rectal bleeding. This time agree with GI doing a flexible sigmoidoscopy. He does have a history of colon cancer. We will see what is discovered if there is any etiology. Otherwise, continue supportive care. 2. Perineal wound. At this time will continue wound VAC and go from there. It seems to be doing okay. cc: Nirmal Rouse MD
[2019-07-02] MEDS ORDERED: PERIDEX MT SCH (21:00)
== END 2019-07-02 14:58 | disposition home or self-care (01) | DRG 920 ==
LOC: SUPCPDRO → ED 09:00 → OPS 12:03 → DIRADM 12:03 → SUATTDRO 12:37 → 4N 12:37
PROVIDERS: ADMIT Internal Medicine; ATTEND Internal Medicine

== ENCOUNTER 2019-07-10 17:12 | Inpatient (IN) ==
[2019-07-10] MEDS ORDERED: CALCIUM CHLORIDE SYRINGE IV ONE (17:40)
[2019-07-10] MEDS ORDERED: HUMULIN R IV ONE (17:41)
[2019-07-10] MEDS ORDERED: D50W SYRINGE IV ONE (17:41)
[2019-07-10] MEDS ORDERED: SODIUM BICARBONATE 8.4% IV ONE (17:41)
[2019-07-10] MEDS ORDERED: ROCEPHIN 1 GM in NS 50 ML IV ONE (17:45)
[2019-07-10] MEDS ORDERED: NS 1,000 ML IV ONE (17:46)
[2019-07-10] MEDS ORDERED: ZOFRAN IV ONE (18:02)
[2019-07-10 18:18] LABS: BASO# 0.02 X1000 (0.0-0.2); BASO% 0.3 % (0.0-0.8); EOS% 1.3 % (0.0-10.0); HEMATOCRIT 32.6 % (42.0-52.0); HEMOGLOBIN 11.2 g/dL (14.0-18.0); IMM GRAN# 0.02 X1000 (0.0-0.04); IMM GRAN% 0.3 % (0.0-0.5); LYMPH# 1.58 X1000 (1.2-3.4); LYMPH% 21.2 % (20.5-51.1); MCH 28.5 PG (27-31); MCHC 34.4 g/dL (33-37); MONO# 0.52 X1000 (0.11-0.59); MPV 8.5 FL (7.4-10.4); NEUT% 69.9 % (42.2-75.2); PLT 239 X1000 (130-400); RBC 3.93 XMIL (4.7-6.1); RDW 13.4 % (11.5-14.5); WBC 7.44 X1000 (4.8-10.8)
--- NOTE | 2019-07-10 18:48 | PROVIDER DOCUMENTATION ---
This chart was entered by Radha Duran Scribe, acting as scribe for Hang Boateng MD. HPI-General Adult <Nestor Montes. - Last Filed: 07/10/19 21:10> - General Source: patient, family (brother/sister at bedside), EMS (first response) - History of Present Illness -Gen Adult Nature of Presenting Problems: 69 yowm presents to the ed with c/o n/v and elevated potassium of 7.3. pt lives in a snf and labs drawn yesterday. when results came back noted elevated potassium and with n/v pt was sent to ed. pt denies pain, has pressure ulcer to buttock and has ileostomy in RLQ. pt has seen dr melton and had sx in last 8 weeks and 2 days ago for oskar gangrene and was told everything looked well. was in the room talking to pt and siblings and sts even though pt has ileostomy pt still has feces come from his rectum. family sts dr is aware of this. Location of Pain/Injury: reports: none Pain Radiation: reports: no radiation Quality of Pain: reports: none, other (c/o nausea) Severity: reports: moderate Onset/Duration: reports: last night Timing: reports: still present, intermittent Context/Activities at Onset: reports: light activity Modifying Factors: improves with: nothing Associated Symptoms: reports: nausea, vomiting. denies: back/neck pain, chest pain, cough, fever/chills, shortness of breath Similar Symptoms Previously?: Yes Recently seen or treated by another doctor?: Yes (saw dr melton 2 days prior) <Hang Boateng - Last Filed: 08/03/19 13:10> - General Chief Complaint: Abnormal Lab[s] Stated Complaint: abnormal labs Time Seen by Provider: 07/10/19 17:33 Allergies/Adverse Reactions: Patient Allergies Allergy/AdvReac Type Severity Reaction Status Date / Time Penicillins Allergy Unknown Verified 07/10/19 19:29 Home Medications: Home Medication List Medication Instructions Recorded Confirmed Last Taken Type Amiodarone HCl 1 tab PO DAILY 05/04/19 07/10/19 06/27/19 History Folic Acid 1 tab PO BID 05/04/19 07/10/19 06/27/19 History Pantoprazole [Protonix] 1 tab PO DAILY 05/04/19 07/10/19 06/27/19 History ATORVAstatin [Lipitor] 40 mg PO QHS 05/18/19 07/10/19 06/27/19 History Ferrous Sulfate 325 mg PO DAILY tab 06/03/19 07/10/19 06/27/19 Rx Insulin NPH Hum/Reg Insulin Hm 25 unit SUBQ BID 06/28/19 07/10/19 06/27/19 History [Novolin 70-30 100 Unit/ml Vial] Metoprolol Succinate E.r. [Toprol 1 tab PO DAILY 06/29/19 07/10/19 Unknown History Xl] Acetaminophen [Tylenol] 650 mg PO Q6H PRN PRN tab 07/15/19 Unknown Rx Aspirin EC 81 mg PO DAILY tab 07/15/19 Unknown Rx Hydrocodone/Acetaminophen [Juniata 1 ea PO Q4-6H PRN PRN #20 tab 07/15/19 Unknown Rx 5-325 Tablet] LISINOpril [Prinivil] 0.5 tab PO QHS #0 07/15/19 07/10/19 06/27/19 Rx Vancomycin [Vancocin] 125 mg PO Q6HR #32 cap 07/15/19 Unknown Rx Review of Systems - Adult - REVIEW OF SYSTEMS - ADULT Constitutional: reports: no symptoms reported. denies: chills, fever Eyes: reports: no symptoms reported Ears, Nose, Mouth & Throat: reports: no symptoms reported Cardiovascular: denies: chest pain, palpitations Respiratory: denies: shortness of breath, wheezing Gastrointestinal: reports: see HPI, nausea, vomiting. denies: abdominal pain Genitourinary: reports: see HPI, frequent UTI's Musculoskeletal: denies: back pain, neck pain Integumentary: reports: see HPI, skin sores/ulcer (buttock) Neurological: denies: dizziness/vertigo, headache/migraines Psychiatric: reports: no symptoms reported Endocrine: reports: no symptoms reported Hematologic/Lymphatic: reports: no symptoms reported Allergic/Immunologic: reports: no symptoms reported All Other Systems: Reviewed and Negative <Hang Boateng - Last Filed: 08/03/19 13:10> Past History - Adult - PAST MEDICAL HISTORY-ADULT Review of Records: reports: Old Records Reviewed, Nursing Assessment Review, Medications Reviewed, Social history reviewed & non-contributory. Major Childhood Illnesses: reports: denies history Cardiovascular: reports: CAD, HTN Respiratory: reports: denies history Gastrointestinal: reports: cancer (colon) Genitourinary: reports: denies history Musculoskeletal: reports: denies history Neurological: reports: denies history Psychiatric: reports: denies history Endocrine/Immune: reports: Diabetes Diabetes Type: Type 2 - PRIOR SURGERIES/PROCEDURES Surgical/Procedure History: reports: recent surgery, CABG, cholecystectomy, bowel surgery - IMMUNIZATION STATUS Childhood Immunizations: See Nurse Assessment Flu Vaccine: See Nurse Assessment - FAMILY HISTORY Family History: reviewed, not pertinent, HTN - SOCIAL HISTORY Smoking: denies Substance Use: denies Alcohol Use Frequency: never Living Situation: care facility <Hang Boateng - Last Filed: 08/03/19 13:10> Physical Exam-General - PHYSICAL EXAM-ADULT Initial Vital Signs Reviewed: Yes - CONSTITUTIONAL General Appearance: alert, no apparent distress, obese - EYES Eyes: PERRL/EOMI, pink conjunctivae - HEAD, EARS, NOSE, MOUTH & THROAT HENMT: moist mucous membranes - NECK Neck: full range of motion, normal inspection - RESPIRATORY Respiratory: chest non-tender, lungs clear, normal breath sounds - CARDIOVASCULAR Cardiovascular: normal peripheral pulses, regular rate, rhythm - CHEST (BREASTS) Chest/Breast: other (well healed CABG scar) - GASTROINTESTINAL (ABDOMEN) Abdominal Exam: non tender, soft, other (c/o nausea ileostomy on RLQ well healed scar seen from colon removal sx in 10/13) - GENITOURINARY Male Genitalia: normal genitalia, other (has) Rectal Exam: other (buttock pressure ulcer) Hemoccult Exam: deferred - MUSCULOSKELETAL Back Exam: normal inspection, no CVA tenderness Extremity: normal inspection Peripheral Pulses: radial (R): 2+, radial (L): 2+ - SKIN Integumentary: normal color, warm/dry, decubitus (buttock) - NEUROLOGIC Neurologic: grossly normal - PSYCHIATRIC Psych/Mental Status: normal mood/affect, normal thought content, normal thought process, oriented x 3 <Hang Boateng - Last Filed: 08/03/19 13:10> Progress - PLAN OF CARE/RESULTS Progress/Plan/Lab Results: Vital Signs - 8 hr 07/10/19 17:20 07/10/19 17:21 07/10/19 17:25 Temperature 97.8 F Pulse Rate 68 Respiratory Rate 18 Blood Pressure 133/65 133/65 O2 Sat by Pulse Oximetry 97 100 95 07/10/19 17:30 07/10/19 17:45 07/10/19 18:00 Temperature Pulse Rate 61 63 62 Respiratory Rate 18 21 21 Blood Pressure O2 Sat by Pulse Oximetry 100 100 100 07/10/19 18:02 07/10/19 18:30 07/10/19 18:33 Temperature Pulse Rate 62 59 L 59 L Respiratory Rate 20 19 19 Blood Pressure 150/54 137/65 O2 Sat by Pulse Oximetry 100 100 100 07/10/19 18:45 07/10/19 19:00 07/10/19 19:03 Temperature Pulse Rate 72 70 76 Respiratory Rate 19 19 21 Blood Pressure 112/58 O2 Sat by Pulse Oximetry 100 100 100 07/10/19 19:32 07/10/19 20:30 Temperature Pulse Rate 65 57 L Respiratory Rate 19 19 Blood Pressure 117/54 127/53 O2 Sat by Pulse Oximetry 100 100 Laboratory Results - last 24 hr 07/10/19 07/10/19 07/10/19 17:54 17:54 18:17 WBC 7.44 RBC 3.93 L Hgb 11.2 L Hct 32.6 L MCV 83.0 MCH 28.5 MCHC 34.4 RDW Std Deviation 13.4 Plt Count 239 MPV 8.5 Immature Gran % (Auto) 0.3 Neut % (Auto) 69.9 Lymph % (Auto) 21.2 [place] % (Auto) 7.0 Eos % (Auto) 1.3 Baso % (Auto) 0.3 Immature Gran # (Auto) 0.02 Neut # (Auto) 5.20 Lymph # (Auto) 1.58 [place] # (Auto) 0.52 Eos # (Auto) 0.10 Baso # (Auto) 0.02 Sodium 129 L Potassium 7.1 H* Chloride 98 Carbon Dioxide 12 L Anion Gap 19 BUN 93 H Creatinine 4.3 H Estimated GFR/1.73 m2 14 BUN/Creatinine Ratio 22 Glucose 193 H Calculated Osmolality 293 Calcium 10.2 Magnesium 1.8 Total Bilirubin 0.71 AST 12 ALT 23 Alkaline Phosphatase 399 H Total Protein 8.2 Albumin 4.5 Globulin 3.7 Albumin/Globulin Ratio 1.2 Plasma Lactate 1.0 Orders Category Date Time Status US RENAL 2 (RETROPER) COMPLETE [US] Stat Exams 07/10/19 18:01 Completed BLOOD CULTURE [BLDCUL] Stat Lab 07/10/19 18:54 Results CBC WITH DIFF [HEME] Stat Lab 07/10/19 17:54 Completed COMPREHENSIVE METABOLIC PANEL [CHEM] Stat Lab 07/10/19 17:54 Completed LACTATE, PLASMA [CHEM] Stat Lab 07/10/19 18:17 Completed MAGNESIUM [CHEM] Stat Lab 07/10/19 17:54 Completed 0.9% Sodium Chloride Inj [Ns] 1,000 ml Med 07/10/19 17:46 Active IV 250 mls/hr Calcium Chloride Syringe Med 07/10/19 17:40 Discontinued 1 gm IV NOW ONE CefTRIAXONE [Rocephin] 1 gm Med 07/10/19 17:45 Discontinued 0.9% Sodium Chloride Inj [Ns] 50 ml IV NOW Dextrose 50% Syringe [D50w Syringe] Med 07/10/19 17:41 Discontinued 50 ml IV NOW ONE Insulin Human Regular [Humulin R] Med 07/10/19 17:41 Discontinued 10 unit IV NOW ONE Ondansetron [Zofran] Med 07/10/19 18:02 Discontinued 4 mg IV NOW ONE Sodium Bicarbonate 8.4% Med 07/10/19 17:41 Discontinued 100 meq IV NOW ONE Pt signed out to me by Dr. Boateng, pt in YENY with hyperkalemia, Renal US negative, spoke with Dr. Catherine and will admit to his service Result Diagrams: 07/10/19 17:54 07/10/19 17:54 <Nestor Montes - Last Filed: 07/10/19 21:10> - PLAN OF CARE/RESULTS Progress/Plan/Lab Results: Vital Signs - 8 hr 07/10/19 17:25 Temperature 97.8 F Pulse Rate 68 Respiratory Rate 18 Blood Pressure 133/65 O2 Sat by Pulse Oximetry 95 Orders Category Date Time Status US RENAL 2 (RETROPER) COMPLETE [US] Stat Exams 07/10/19 18:01 Ordered CBC WITH DIFF [HEME] Stat Lab 07/10/19 18:01 Ordered COMPREHENSIVE METABOLIC PANEL [CHEM] Stat Lab 07/10/19 18:01 Ordered LACTATE, PLASMA [CHEM] Stat Lab 07/10/19 17:45 Uncollected MAGNESIUM [CHEM] Stat Lab 07/10/19 18:01 Ordered 0.9% Sodium Chloride Inj [Ns] 1,000 ml Med 07/10/19 17:46 Active IV 250 mls/hr Calcium Chloride Syringe Med 07/10/19 17:40 Discontinued 1 gm IV NOW ONE CefTRIAXONE [Rocephin] 1 gm Med 07/10/19 17:45 Active 0.9% Sodium Chloride Inj [Ns] 50 ml IV NOW Dextrose 50% Syringe [D50w Syringe] Med 07/10/19 17:41 Discontinued 50 ml IV NOW ONE Insulin Human Regular [Humulin R] Med 07/10/19 17:41 Discontinued 10 unit IV NOW ONE Ondansetron [Zofran] Med 07/10/19 18:02 Discontinued 4 mg IV NOW ONE Sodium Bicarbonate 8.4% Med 07/10/19 17:41 Discontinued 100 meq IV NOW ONE Result Diagrams: 07/15/19 06:20 07/15/19 06:20 - REASSESSMENT Reassessment #1 Time Reassessed: 18:45 Status: unchanged (pt remains in jx rhythm, alert, hemodynamically stable; mult studies pending, will sign out to Dr. Montes) Reassessment #2 Time Reassessed: 19:04 Status: improving (pt now in NSRhythm) - EKG 1 Time of EKG reading by physician:: 17:32 EKG Read and Signed by:: Hang Boateng EKG Interpretation (*Must complete 3 of following elements*): Abnormal Rate: 64 Rhythm: junctional rhythm - CONSULTS/PCP/HOSPITALIST Notification Consult Disposition: Admit - CHANGE OF SHIFT REPORT (ED Provider) 1 Report Given and Care Transferred to:: Dr. Montes Time of Transfer: 19:00 Items Pending: Labs, Ultrasound Results, Physician Consult/Arrival <Hang Boateng - Last Filed: 08/03/19 13:10> Departure - Departure Time of Disposition Decision: 21:11 <Nestor Montes - Last Filed: 07/10/19 21:10> - Departure Time of Disposition Decision: 21:13 Certified Medical Emergency: Emergent - Critical Care Note This patient required my direct & personal management of CC.: Yes Total Time (mins): 37 Critical Care Statement: This patient required my direct personal management to treat or rule out processes, the absence of which, could potentiallly result in sudden, clinically significant life or limb threatening deterioration. Comments: I have serially reviewed this chart for completeness prior to signing. Clemencia ZIMMERMAN <Hang Boateng - Last Filed: 08/03/19 13:10> - Departure DIAGNOSIS: Acute hyperkalemia, YENY (acute kidney injury), UTI (urinary tract infection), Open wound Disposition: ADMITTED INPATIENT 09 Condition: Critical Attestation - Physician/ DEZ Attestation Patient care was provided by Advanced Practice Provider:: No The physician spent face to face time with patient:: Yes Advanced Practice Provider documentation review:: Supervising physician onsite and consulted in the evaluation and care of this patient. The physician did have a face to face encounter with the patient. <Hang Boateng - Last Filed: 08/03/19 13:10> This chart was documented by the indicated scribe, (Radha Duran Scribe) and accurately reflects the services I performed and decisions made by me, Hang Boateng MD, as attested by the provider's signature.
[2019-07-10 18:59] LABS: ALB/GLOB RATIO 1.2; ALBUMIN 4.5 g/dL (3.5-5.0); CALCIUM 10.2 mg/dL (8.8-10.2); CREATININE 4.3 mg/dL (0.7-1.2); MAGNESIUM 1.8 mg/dL (1.5-2.7); TOTAL BILIRUBIN 0.71 mg/dL (0.20-1.00); TOTAL PROTEIN 8.2 g/dL (6.3-8.3)
[2019-07-10 19:05] LABS: POTASSIUM 7.1 mmol/L (3.5-5.1)
--- NOTE | 2019-07-10 20:30 | Diag Imaging Result Doc PS360 ---
EXAM: US RENAL 2 (RETROPER) COMPLETE 07/10/2019 HISTORY: acute renal failure, hx of complex pelvic surgery TECHNIQUE: Renal ultrasound COMMENT: There is no evidence of hydronephrosis. There is a calcification or stone in the upper pole of the central renal echocomplex on the right measuring 14 mm in greatest dimension. The right kidney is 12.3 x 6.7 x 4.3 cm the left is 12 x 4.7 x 6.1 cm. IMPRESSION: No evidence of obstructive uropathy. Electronically signed by Shashi Kingston 07/10/2019 8:28 PM
[2019-07-10] MEDS ORDERED: CALCIUM GLUCONATE IV PUSH ONE ×2 (21:33→22:59)
[2019-07-10] MEDS ORDERED: TYLENOL PO PRN (22:52)
[2019-07-10] MEDS ORDERED: ZOFRAN IV PRN (22:52)
--- NOTE | 2019-07-10 23:21 | HISTORY AND PHYSICAL ---
REASON FOR ADMISSION: Generalized weakness and abnormal labs; 2 days history of persistent nausea and vomiting. HISTORY OF PRESENT ILLNESS: Mr. Filemon Solorzano is a 69-year-old man with past medical of colon cancer, status post multiple surgical procedures emanating from partial colon resection, colostomy placement, reversal of colostomy, along with for diverting loop ileostomy and complications with exploratory laparotomy and lysis of adhesions. 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 The patient reports that for the last 2 to 3 days, he has been having nausea, increased weakness, inability to move his extremities. This has culminated in him having persistent vomiting episodes with no coffee grounds or hematemesis. He has a 2 to 3 week history of intermittent lower abdominal pain in the left lower quadrant, right lower quadrant areas. Describes the pain as spontaneous, intermittent, lasting about an hour, dull to sharp pain. No aggravating or relieving factors or radiation. The patient reports also over the last few days he has been having to change his colostomy bag more frequently and he has also been having some spontaneous loose stool from his rectum. He denies any cardiorespiratory complaints. No fever or chills. His urine output he says is good and he describes the color of his urine as light damián. He was brought in today primarily because of worsening vomiting and nausea; because of worsening lab work. REVIEW OF SYSTEMS: Twelve system review was done, positive findings per HPI. ALLERGIES: To penicillins. HOME MEDICATIONS: Include the following. Atorvastatin 40 mg at bedtime, amiodarone 2 mg daily, folic acid 1 mg b.i.d., 70/30 insulin 35 units b.i.d., Protonix 40 mg daily, Toprol 5 mg daily; lisinopril 10 mg at bedtime, ferrous sulphate 325 mg daily, hydrocodone 1 tab q.4h to 6 p.r.n. SURGICAL HISTORY: See above including also CABG x4, cholecystectomy, appendectomy, and perineal and perirectal debridement twice. SOCIAL HISTORY: Currently a resident of longterm, one of our local longterm rehab places. He does not smoke, drink, or use drugs. FAMILY HISTORY: Notable for heart disease, diabetes. LAB WORK: White count 7000, hemoglobin and hematocrit 11 and 32, platelets 239,000, normal differential. Sodium is 129, potassium 7.1, BUN is 19, creatinine 4.3. This cevallos an increase of the creatinine from 1.7 on 09/06/2018 and an increase in the BUN from 46 to 93, just 4 days ago. Glucose 193, alkaline phosphatase 339. Lactate is 1. Renal ultrasounds shows no obstructive process. Urinalysis is ordered and pending. EKG was still pending at the time I was going to see patient. They were having problems with the leads at bedside. However, a rhythm strip did show peaked T-waves and possibly peaked P waves too. Chest film is still pending also. EXAMINATION: Vital Signs Are As Follows: Blood pressure is 117/54, heart rate 65, respirations 19, temperature is 97.8 degrees, saturation 94% on room air. General: He is a chronically ill man in no acute distress. AAO x3. Normal mood and affect. HEENT: Head is normocephalic, atraumatic. Eyes, MARLO, EOMI. He is anicteric and not pale. ENT: Shows mild xerostomia, but no exudates. No signs of cyanosis. Neck: Supple. No JVD or carotid bruit. No thyromegaly. The patient has decreased skin turgor. Chest: Clear when auscultated in both lung villegas. Cardiovascular: First and sounds heard. No gallops, murmurs, rubs. Rhythm is regular. Abdomen: Scaphoid with an almost midline or paramedian left colostomy which is functional with brownish-greenish colored stools. Unfortunately, it is leaking at the sides. There is very mild tenderness in the left and right lower quadrant areas, but no peritoneal signs. Bowel sounds are normal. Rectal: Deferred at this time. Extremities: Patient has decreased distal pulse volumes in lower extremities. Rhythm is regular, symmetrical. No edema, clubbing or peripheral cyanosis. Neurological: No gross focal deficits. No asterixis. Skin: Intact. No breakdown, lesion, erythema, although I did not examine the perineal area because he was in a stretcher and it was very difficult to maneuver him. I did tell the nurse to sign out to the floor nurses to make sure this area is evaluated and the dressings changed. Musculoskeletal: Grossly normal. ASSESSMENT AND PLAN: 1. Acute kidney injury secondary to gastrointestinal losses, (i.e. from vomiting and from diarrhea), causing the patient to have decreased intravascular volume while taking AUDREY inhibitor. Plan is to start patient on a bicarb drip. Correct associated hyperkalemia and replace fluid losses. Consult Nephrology for further input. Discontinue AUDREY inhibitors indefinitely. Modify doses of other home medications to match patient's renal function and avoid any potential nephrotoxic medication. 2. Type 2 diabetes. We will start patient on Lantus for maintenance of blood sugar control and low sliding scale. 3. Hypertension. Cautious use of antihypertensive in this patient who has somewhat compromised renal blood flow. We will initiate antihypertensives which are not nephrotoxic if systolic blood pressure is greater 150. 4. Coronary artery disease. Noted, the patient is not on any aspirin, but is on statins. There is probably a good reason why he is not, although this needs to be looked into by day team, who is more familiar with him. 5. Atrial fibrillation. Continue amiodarone. 6. Protracted nausea, vomiting, likely secondary to uremia. cc: MD Saleem Rankin MD MTDEdson
[2019-07-10 23:36] LABS: URINE SOURCE CLEAN CATCH
[2019-07-10] MEDS ORDERED: CALCIUM GLUCONATE 1 GM in NS 50 ML IV ONE (23:47)
[2019-07-10 23:49] LABS: BILIRUBIN URINE NEGATIVE (NEGATIVE); BLOOD URINE NEGATIVE (NEGATIVE); COLOR YELLOW; GLUCOSE URINE NEGATIVE (NEGATIVE); KETONE URINE NEGATIVE (NEGATIVE); LEUKOCYTES URINE LARGE (NEGATIVE); NITRITE URINE NEGATIVE (NEGATIVE); PROTEIN URINE TRACE mg/dL (NEGATIVE); SP GRAVITY URINE 1.017; TURBIDITY URINE CLEAR (CLEAR); UROBILINOGEN URINE NORMAL (NORMAL)
[2019-07-10 23:50] LABS: UR EPITHELIAL CELLS <10 /HPF (<10); URINE BACTERIA NEGATIVE /HPF; URINE RBC <10 /HPF (<10); URINE WBC 20-40 /HPF (<10)
[2019-07-11 00:12] LABS: CALCIUM 10.4 mg/dL (8.8-10.2); CREATININE 3.9 mg/dL (0.7-1.2)
[2019-07-11 00:15] LABS: URINE CASTS NONE SEEN; URINE CRYSTALS NONE SEEN; URINE SMALL ROUND CELLS NONE SEEN; URINE YEAST PRESENT
[2019-07-11 00:17] LABS: POTASSIUM 6.7 mmol/L (3.5-5.1)
[2019-07-11] MEDS ORDERED: CALCIUM GLUCONATE IV PUSH ONE (00:20)
[2019-07-11] MEDS ORDERED: HUMULIN R IV ONE (00:35)
[2019-07-11] MEDS ORDERED: D50W SYRINGE IV ONE (00:35)
[2019-07-11] MEDS ORDERED: LASIX IV ONE (00:35)
[2019-07-11] MEDS ORDERED: DUONEB (A & A) INH ONE (00:37)
[2019-07-11] MEDS: SODIUM BICARBONATE 8.4% 100 MEQ in D5W 1,000 ML IV SCH ×4 (01:13→21:47)
[2019-07-11] MEDS ORDERED: NS 500 ML IV ONE ×2 (01:40→02:53)
[2019-07-11] MEDS ORDERED: NS 500 ML ONE (01:47)
--- NOTE | 2019-07-11 02:59 | EKG Report ---
Test Performed on : 07/11/2019 02:01:21 AM Test Reason : Hypotension, and Elevated T Waves. Blood Pressure : / mmHG Vent. Rate : 100 BPM Atrial Rate : 100 BPM P-R Int : 120 ms QRS Dur : 104 ms QT Int : 406 ms P-R-T Axes : 000 016 074 degrees QTc Int : 523 ms Normal sinus rhythm. Possible Inferior infarct , age undetermined Prolonged QT Abnormal ECG When compared with ECG of 10-JUL-2019 21:36, (Unconfirmed) Vent. rate has increased BY 47 BPM Borderline criteria for Anterior infarct are no longer present ST more depressed in Anterior leads QT has lengthened Unconfirmed Result
[2019-07-11 04:48] LABS: ALB/GLOB RATIO 1.2; ALBUMIN 3.5 g/dL (3.5-5.0); CALCIUM 10.6 mg/dL (8.8-10.2); POTASSIUM 4.8 mmol/L (3.5-5.1); TOTAL BILIRUBIN 0.4 mg/dL (0.20-1.00); TOTAL PROTEIN 6.4 g/dL (6.3-8.3)
[2019-07-11] MEDS: HUMALOG SUBQ SCH ×4 (07:00→21:11)
--- NOTE | 2019-07-11 07:43 | Diag Imaging Result Doc PS360 ---
EXAM: ABDOMEN FLAT/UPRIGHT 07/10/2019 HISTORY: possible ileus TECHNIQUE: Flat and upright abdomen COMMENT: There is a nonspecific bowel gas pattern. Compared to 05/31/2019 the small bowel dilatation which was present previously is no longer present. There is no evidence of organomegaly or mass. There is extensive arteriosclerosis in the pelvis and femoral vessels. There are patchy areas of sclerosis throughout the pelvis which may be related to secondary hyperparathyroidism. IMPRESSION: No evidence of ileus. Electronically signed by Shashi Kingston 07/11/2019 7:40 AM
[2019-07-11] MEDS: PRILOSEC PO SCH (08:02)
[2019-07-11] MEDS ORDERED: LANTUS INSULIN SUBQ SCH (09:00)
--- NOTE | 2019-07-11 09:44 | Diag Imaging Result Doc PS360 ---
EXAM: CHEST-2 VIEWS 07/11/2019 HISTORY: YENY TECHNIQUE: PA and lateral chest COMMENT: There are sternotomy wires. There is no evidence of acute cardiac or pulmonary disease. Compared to 06/29/2019 there has been no significant change in the appearance of the chest. IMPRESSION: Stable chest. Electronically signed by Shashi Kingston 07/11/2019 9:42 AM
[2019-07-11] MEDS: FOLIC ACID PO SCH ×2 (10:22→21:11)
[2019-07-11] MEDS: ASPIRIN EC PO SCH (10:22)
[2019-07-11] MEDS: CORDARONE PO SCH (10:23)
[2019-07-11] MEDS: NORCO-5 PO PRN (11:26)
--- NOTE | 2019-07-11 13:01 | PROGRESS NOTE ---
DATE: 07/11/2019 SUBJECTIVE: This patient is lying comfortably in bed. He is not complaining of pain at this moment. He has been having diarrhea for around 4 or 5 days. He is alert. He is oriented. He is following commands. He states that he is feeling a bit better. OBJECTIVE: Vital Signs: Temperature 98.7 degrees, pulse 79, respiratory rate 22, blood pressure 93/41, oxygen saturation 99 on room air. HEENT: Head normocephalic. No trauma. PERRLA. Neck: Supple. No JVD. No masses. Central trachea. Chest: Clear to auscultation. Cardiovascular: RRR. Abdomen: He has a left colostomy which is functional and he had some greenish-colored stools. Mild tenderness to palpation, which is generalized. No signs of peritoneal irritation. Extremities: Trace edema. No clubbing, no cyanosis. Neurological Examination: This patient is awake and alert. Laboratory: Sodium 133, potassium 4.8, chloride 101, bicarbonate 10, BUN 90, creatinine 4, glucose 346, calcium 10.6. AST 11, ALT 19, alkaline phosphatase 292. ASSESSMENT AND PLAN: 1. Acute kidney injury, likely due to dehydration secondary to nausea and diarrhea. His bicarbonate level is low so he was placed on a bicarbonate drip. I will continue with that for now. We will avoid blood pressure medications since his blood pressure has been borderline low. We have discontinued the AUDREY inhibitor and we have been holding the metoprolol. Continue with the amiodarone though. Nephrology department has been consulted. 2. Nausea, vomiting, diarrhea. He is still having green stools, liquid in his bag. We will monitor this patient closely. He is getting fluids. 3. Type 2 diabetes. I will put this patient back on his home medications, insulin 70/30. I will monitor. Continue sliding scale insulin and pattern of blood sugar. 4. Hypertension. I will hold for now any kind of antihypertensive medications since his blood pressure has been borderline low. 5. History of coronary artery disease, aware. 6. Atrial fibrillation. Continue with amiodarone. 7. History of cerebrovascular accident, aware. 8. History of migraines, aware. cc: Konrad Bell MD
[2019-07-11] MEDS: HUMULIN 70/30 SUBQ SCH (21:11)
[2019-07-12 05:39] LABS: ALB/GLOB RATIO 1.3; ALBUMIN 3.3 g/dL (3.5-5.0); BASO# 0.01 X1000 (0.0-0.2); BASO% 0.2 % (0.0-0.8); CALCIUM 8.9 mg/dL (8.8-10.2); CREATININE 2.6 mg/dL (0.7-1.2); EOS# 0.14 X1000 (0.0-0.7); EOS% 2.9 % (0.0-10.0); HEMATOCRIT 22.9 % (42.0-52.0); HEMOGLOBIN 7.8 g/dL (14.0-18.0); IMM GRAN# 0.02 X1000 (0.0-0.04); IMM GRAN% 0.4 % (0.0-0.5); LYMPH# 1.08 X1000 (1.2-3.4); LYMPH% 22.6 % (20.5-51.1); MAGNESIUM 1.2 mg/dL (1.5-2.7); MCH 28.2 PG (27-31); MCHC 34.1 g/dL (33-37); MCV 82.7 FL (81-99); MONO# 0.53 X1000 (0.11-0.59); MONO% 11.1 % (1.7-9.3); MPV 8.4 FL (7.4-10.4); NEUT# 2.99 X1000 (1.4-6.5); NEUT% 62.8 % (42.2-75.2); PHOSPHORUS 4.4 mg/dL (2.7-4.5); PLT 168 X1000 (130-400); POTASSIUM 5.3 mmol/L (3.5-5.1); RBC 2.77 XMIL (4.7-6.1); RDW 13.2 % (11.5-14.5); TOTAL BILIRUBIN 0.49 mg/dL (0.20-1.00); TOTAL PROTEIN 5.8 g/dL (6.3-8.3); WBC 4.77 X1000 (4.8-10.8)
[2019-07-12] MEDS: SODIUM BICARBONATE 8.4% 100 MEQ in D5W 1,000 ML IV SCH ×2 (06:03→15:59)
[2019-07-12] MEDS: PRILOSEC PO SCH (06:03)
[2019-07-12] MEDS: HUMALOG SUBQ SCH ×4 (06:05→22:38)
[2019-07-12] MEDS: HUMULIN 70/30 SUBQ SCH ×2 (08:08→16:10)
--- NOTE | 2019-07-12 08:09 | EKG Report ---
Test Performed on : 07/10/2019 5:32:20 PM Test Reason : ED. NO EKG ORDER FOR MUSE Blood Pressure : / mmHG Vent. Rate : 064 BPM Atrial Rate : 375 BPM P-R Int : 000 ms QRS Dur : 098 ms QT Int : 444 ms P-R-T Axes : 000 001 083 degrees QTc Int : 458 ms Junctional rhythm. Abnormal ECG When compared with ECG of 22-MAY-2019 06:38, Junctional rhythm. has replaced Sinus rhythm. Criteria for Anterior infarct are no longer present Nonspecific T wave abnormality no longer evident in Inferior leads T wave inversion less evident in Anterior leads QT has shortened Unconfirmed Result
--- NOTE | 2019-07-12 08:09 | EKG Report ---
Test Performed on : 07/10/2019 9:36:32 PM Test Reason : ED. NO EKG ORDER FOR MUSE Blood Pressure : / mmHG Vent. Rate : 053 BPM Atrial Rate : 053 BPM P-R Int : 172 ms QRS Dur : 092 ms QT Int : 454 ms P-R-T Axes : -27 -15 055 degrees QTc Int : 426 ms Sinus bradycardia. Possible Anterior infarct , age undetermined Abnormal ECG When compared with ECG of 10-JUL-2019 17:32, (Unconfirmed) Sinus rhythm. has replaced Junctional rhythm. Unconfirmed Result
[2019-07-12] MEDS: FOLIC ACID PO SCH ×2 (08:11→22:38)
[2019-07-12] MEDS: ASPIRIN EC PO SCH (08:11)
[2019-07-12] MEDS: CORDARONE PO SCH (08:11)
[2019-07-12] MEDS ORDERED: MAGNESIUM SULFATE 2 GM/S.W.I. 2 GM/50 ML IVPB IV ONE (08:38)
--- NOTE | 2019-07-12 09:29 | PROGRESS NOTE ---
DATE: 07/12/2019 SUBJECTIVE: This patient is lying comfortably in bed. His kidney function seems to be getting better. He is tolerating a little bit more of food. He is still having diarrhea. I asked already for Clostridium difficile toxin and antigen, stool culture and white blood cell count. His magnesium level is low and I will replace it. OBJECTIVE: Vital Signs: Temperature 98.5 degrees, pulse 65, respiratory rate 14, blood pressure 96/48, oxygen saturation 97% on room air. HEENT: Head normocephalic, no trauma. PERRLA. Neck: Supple. No JVD. No masses. Central trachea. Chest: Clear to auscultation. Some crepitus at the bases. Cardiovascular: Regular rate and rhythm. Abdomen: He has a left colostomy which is functional, and he had some greenish-colored stools. Mild tenderness to palpation which is generalized. No signs of peritoneal irritation. Extremities: Trace edema. No clubbing, no cyanosis. Neurological examination: The patient is awake and alert. He is oriented x3. LABORATORY: WBC 4.7, hemoglobin 7.8, hematocrit 22.9, platelet 168. Sodium 133, potassium 5.3, chloride 99, bicarbonate 21. BUN 75, creatinine 2.6, glucose 86, calcium 8.9, magnesium 1.2, albumin 3.3. ASSESSMENT AND PLAN: 1. Acute kidney injury likely due to dehydration, secondary to nausea, vomiting and diarrhea. He has been placed on bicarbonate drip. We will continue with that for now. Nephrology Department already evaluated this patient today. We will avoid blood pressure medication since his blood pressure has been borderline low. We have discontinued his AUDREY inhibitor, and we have been holding his metoprolol. Continue with amiodarone for now. 2. Nausea and vomiting, resolved. He is tolerating some oral right now. 3. Diarrhea. He is still having diarrhea. I will get a Clostridium difficile toxin and antigen, as well as white blood count in the stool and culture. 4. Type 2 diabetes. He is on insulin 70/30. I will continue with that. 5. Hypertension. Blood pressure for now has been borderline low. We are holding blood pressure medication. 6. History of coronary artery disease. Aware. 7. Atrial fibrillation. Continue with amiodarone. 8. History of cerebrovascular accident. Aware. 9. History of migraines. Aware. cc: Konrad Bell MD
--- NOTE | 2019-07-12 10:34 | NEPHROLOGY CONSULTATION ---
DATE: 07/12/2019 REASON FOR ADMISSION: Nausea, vomiting, weakness, acute kidney injury, hyperkalemia. CONSULTING PHYSICIAN: Dr. Amaya. REASON FOR CONSULTATION: Assist with management, acute on chronic kidney disease. HISTORY OF PRESENT ILLNESS: This is a 69-year-old gentleman, who came into the hospital on day of admission secondary to nausea, vomiting with generalized weakness. He was discharged from this facility about 2 weeks ago. The patient came in and was noted to have hyperkalemia with potassium 7.1, a creatinine of 4.3. He underwent imaging and other labs. It was felt that he was significantly intravascular volume depleted, and had continued with his AUDREY inhibitor. That was held. The patient has been fluid resuscitated, and this morning his creatinine is down to 2.6. It appears his baseline creatinine is perhaps 1-1/2. His renal ultrasound showed kidney size 12 cm bilaterally with no hydronephrosis. PAST MEDICAL HISTORY: Hyperlipidemia, atrial fibrillation, diabetes, GERD, hypertension, anemia, history of colon cancer, history of hematochezia, history for Basil gangrene, current perineal and gluteal ulcerations. PAST SURGICAL HISTORY: CABG, cholecystectomy, appendectomy, perineal and perirectal debridement, partial colon resection, colostomy placement, reversal of colostomy, loop ileostomy, exploratory laparotomy, lysis of adhesions. ALLERGIES: Penicillin. HOME MEDICATIONS: Atorvastatin, amiodarone, folic acid, insulin, Protonix, Toprol, lisinopril, ferrous sulfate, hydrocodone. FAMILY HISTORY: Heart disease, diabetes. SOCIAL HISTORY: He currently [facility] at [facility] facility. No EtOH, tobacco or illicit drug use. REVIEW OF SYSTEMS: Nausea, vomiting and weakness. PHYSICAL EXAMINATION: Vital Signs: Temperature 98.5 degrees, pulse 65, respiratory rate 16, blood pressure 96/48. Intake 2.1 L; output 2 L. General: This is a chronically ill-appearing, elderly gentleman sitting up in bed. He is awake and alert. He does not appear in acute distress. HEENT: Normocephalic, atraumatic. MARLO. Conjunctivae are pink. Oral mucosa moist. Neck: Neck is supple without JVD. Cardiovascular: Regular rate and rhythm without murmur or gallop. Controlled rate. Pulmonary: He is clear bilaterally. He has equal excursion. Abdomen: Soft with positive bowel sounds. : He has a Jaimes catheter with clear yellow urine. Extremities: No clubbing, cyanosis, or edema. Integumentary: Skin is warm and dry. Neurologic: Grossly nonfocal. LAB DATA: WBC of 4.7, hemoglobin 7.8. Sodium 133, potassium 5.3, CO2 21, creatinine 2.6. It looks like he has a baseline creatinine of 1.7. ASSESSMENT AND PLAN: 1. Acute on chronic kidney disease secondary to intravascular volume depletion plus concurrent AUDREY inhibitor use. This has been held. The patient has been fluid resuscitated and improvement in renal function. 2. Hyperkalemia has improved. He is on a bicarbonate drip. Potassium is still 5.3, and sodium is 133 today. CO2 is 21, but from my perspective the bicarbonate drip can continue 100 mEq at 125 mL an hour, at least overnight. 3. Hypertension, acceptable. He is slightly hypotensive today. If he needs additional medications, we would continue to hold the AUDREY inhibitor at this time until he has stability with renal function. 4. Fluid volume. He is euvolemic today. Excellent urine output. Dictated by SONNY Heath for Sunil Foley MD Face to face encounter, data reviewed, discussed with Osvaldo Flores on 07/12/19. I agree with the above assessment and plan of care. cc: Sunil Foley MD [facility]
--- NOTE | 2019-07-12 22:31 | CONSULTATION ---
DATE OF CONSULTATION: 07/12/2019 REQUESTING PHYSICIAN: The hospitalist. REASON FOR CONSULTATION: Chronic wound. HISTORY OF PRESENT ILLNESS: A 69-year-old gentleman well known to me who has had perineal wounds and debrided and diverting loop ileostomy. He has had wound that has [facility], apparently came in with generalized weakness and abnormal labs after persistent nausea and vomiting. I was asked to weigh an opinion because they felt the perineum and perirectal area was getting a little bit red. He is not really having much complaints. For his past medical, past surgical, allergies, family history, social history, please see previous dictations. REVIEW OF SYSTEMS: Full 14 systems were obtained, negative except as specified in HPI. PHYSICAL EXAMINATION: Vital Signs: Patient is currently afebrile. His vital signs are stable. General: No acute distress. Cardiovascular: Regular rate and rhythm. Lungs: Grossly clear. Abdomen: Soft. Ostomy functioning. Perineum: Some erythema. Overall, wound looks like it is healing. ASSESSMENT AND PLAN: A 69-year-old gentleman with a chronic wound to the perineum. 1. 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 At this time, I think we can go back to wound VAC. Some of this may just be irritation from the adhesive dressings, but we will continue to monitor him. No immediate plans for surgical intervention. cc: Nirmal Rouse MD
[2019-07-13] MEDS: PRILOSEC PO SCH (06:29)
[2019-07-13] MEDS ORDERED: INSULIN PEN NEEDLES ONE (07:01)
[2019-07-13 07:19] LABS: CALCIUM 9.3 mg/dL (8.8-10.2); CREATININE 1.9 mg/dL (0.7-1.2); POTASSIUM 4.8 mmol/L (3.5-5.1)
[2019-07-13 07:25] LABS: BASO# 0.02 X1000 (0.0-0.2); BASO% 0.5 % (0.0-0.8); EOS# 0.13 X1000 (0.0-0.7); EOS% 3.3 % (0.0-10.0); HEMATOCRIT 23.7 % (42.0-52.0); LYMPH# 1.08 X1000 (1.2-3.4); LYMPH% 27.6 % (20.5-51.1); MCH 28.4 PG (27-31); MCHC 33.8 g/dL (33-37); MONO# 0.44 X1000 (0.11-0.59); MONO% 11.3 % (1.7-9.3); NEUT# 2.24 X1000 (1.4-6.5); NEUT% 57.3 % (42.2-75.2); PLT 169 X1000 (130-400); RBC 2.82 XMIL (4.7-6.1); WBC 3.91 X1000 (4.8-10.8)
[2019-07-13] MEDS: HUMALOG SUBQ SCH ×4 (07:40→21:23)
[2019-07-13] MEDS: SODIUM BICARBONATE 8.4% 100 MEQ in D5W 1,000 ML IV SCH ×2 (07:40→11:44)
[2019-07-13] MEDS: CORDARONE PO SCH (09:44)
[2019-07-13] MEDS: FOLIC ACID PO SCH ×2 (09:44→21:23)
[2019-07-13] MEDS: ASPIRIN EC PO SCH (09:44)
[2019-07-13] MEDS: HUMULIN 70/30 SUBQ SCH ×2 (11:34→17:05)
[2019-07-13] MEDS: 1/2 NS 1,000 ML IV SCH (13:17)
--- NOTE | 2019-07-13 13:53 | GENERAL SURGERY PROGRESS NOTE ---
DATE: 07/13/2019 SUBJECTIVE: The patient seems to be doing okay. Wound seems to be about the same. We will have wound care come and see the patient and maybe re-evaluate for wound VAC. If it seems like the erythema is because the wound VAC placement may consider stopping the wound VAC and doing wet-to- dry, but I think we made good improvements with the wound VAC. I would like to try to continue it. I will continue to follow up and check on him every so often while he is in the hospital. cc: Nirmal Rouse MD
--- NOTE | 2019-07-13 20:35 | PROGRESS NOTE ---
DATE: 07/13/2019 SUBJECTIVE: The patient seems to be getting better. His kidney function is recovering. He is still having diarrhea. C difficile antigen is positive, so I will start this patient on treatment with vancomycin p.o. I will change the IV fluid. I will stop the bicarbonate and I will put him on half NS. His bicarb level is much better. It is 27 today. Kidney function is getting better also and is close to his baseline actually. OBJECTIVE: Vital Signs: Temperature 97.9 degrees, pulse 60, respiratory rate 18, blood pressure 124/52, oxygen saturation 100% on room air. HEENT: Head normocephalic. No trauma. PERRLA. Neck: Supple. No JVD. No masses. Central trachea. Chest: Clear to auscultation. Some crepitus at the bases. Abdomen: Soft. Generalized tenderness to palpation. He has a left colostomy which is functional and he has some liquid stools. Mild tenderness to palpation which is generalized. No signs of peritoneal irritation. Extremities: Trace edema. No clubbing. No cyanosis. Neurological: The patient is awake, alert, and oriented x3. No focal deficit. Skin: In the perineal area, he has some erythema. He has a wound that probably is healing. It does not look infected. LABORATORY: WBC 3.9, hemoglobin 8, hematocrit 23.7, platelets 169,000. Sodium 135, potassium 4.8, chloride 97, bicarbonate 27, BUN 45, creatinine 1.9, glucose 122, calcium 9.3. ASSESSMENT AND PLAN: 1. Acute kidney injury, likely due to dehydration secondary to nausea, vomiting, and diarrhea. He was placed on the bicarbonate drip. We will continue with that for now. Nephrology Department on board. Blood pressure seems to be better. We are holding blood pressure medication for now. Continue with amiodarone. 2. Nausea and vomiting, resolved. He is tolerating p.o. now. 3. Diarrhea, with positive Clostridium difficile antigen. I have placed this patient on vancomycin p.o. 4. Type 2 diabetes. Continue with his insulin. He had some episodes of hypoglycemia, but I believe he was not eating right. 5. Hypertension, better now. Continue with same management. I have been holding his blood pressure medication for now. 6. History of coronary artery disease. Aware. 7. Atrial fibrillation. Continue with amiodarone. 8. History of cerebrovascular accident. Aware. 9. History of migraines. Aware. cc: Konrad Bell MD
[2019-07-13] MEDS: VANCOCIN PO SCH (21:23)
--- NOTE | 2019-07-13 23:20 | NEPHROLOGY PROGRESS NOTE ---
DATE: 07/13/2019 SUBJECTIVE: He states he is still not eating all that well. No nausea or vomiting. No chest pain, palpitations or shortness of breath. OBJECTIVE: Blood pressure 121/50, heart rate 56, respirations 16, afebrile. Generally in no acute distress. Skin is warm and dry. Neck veins are not visible. Heart is regular. No gallops. Lungs are equal. No crackles or wheezes. Abdomen soft, nontender. Bowel sounds are present.Extremities: No edema, clubbing or cyanosis. IMPRESSION AND PLAN: Acute kidney injury. Associated with hyperkalemia. I believe this problem was related to poor distal tubular sodium delivery. His acid-base disturbance has resolved and his hyperkalemia is resolved. Creatinine is down to 1.9. He is now receiving half normal saline at 75 mL/h. We will continue to observe. No other intervention. cc: Sunil Foley MD
[2019-07-14] MEDS: 1/2 NS 1,000 ML IV SCH (03:08)
[2019-07-14] MEDS: VANCOCIN PO SCH ×4 (03:08→21:46)
[2019-07-14 06:48] LABS: BASO# 0.02 X1000 (0.0-0.2); BASO% 0.5 % (0.0-0.8); EOS# 0.14 X1000 (0.0-0.7); EOS% 3.6 % (0.0-10.0); HEMATOCRIT 25.5 % (42.0-52.0); HEMOGLOBIN 8.6 g/dL (14.0-18.0); LYMPH# 1.05 X1000 (1.2-3.4); LYMPH% 26.7 % (20.5-51.1); MCH 28.4 PG (27-31); MCHC 33.7 g/dL (33-37); MCV 84.2 FL (81-99); MONO# 0.45 X1000 (0.11-0.59); MONO% 11.5 % (1.7-9.3); MPV 8.1 FL (7.4-10.4); NEUT# 2.27 X1000 (1.4-6.5); NEUT% 57.7 % (42.2-75.2); PLT 184 X1000 (130-400); RBC 3.03 XMIL (4.7-6.1); RDW 12.8 % (11.5-14.5); WBC 3.93 X1000 (4.8-10.8)
[2019-07-14] MEDS: PRILOSEC PO SCH (06:59)
[2019-07-14] MEDS: HUMALOG SUBQ SCH ×4 (07:00→21:48)
[2019-07-14] MEDS: CORDARONE PO SCH (08:15)
[2019-07-14] MEDS: ASPIRIN EC PO SCH (08:15)
[2019-07-14] MEDS: HUMULIN 70/30 SUBQ SCH ×2 (08:16→16:39)
[2019-07-14] MEDS: FOLIC ACID PO SCH ×2 (08:16→21:45)
[2019-07-14 09:07] LABS: CALCIUM 9.3 mg/dL (8.8-10.2); CREATININE 1.6 mg/dL (0.7-1.2); MAGNESIUM 1.6 mg/dL (1.5-2.7); PHOSPHORUS 2.6 mg/dL (2.7-4.5); POTASSIUM 5.2 mmol/L (3.5-5.1)
[2019-07-14] MEDS ORDERED: SODIUM PHOSPHATE 15 MMOL in NS 250 ML IV ONE (10:13)
[2019-07-14] MEDS ORDERED: MAGNESIUM SULFATE 2 GM/S.W.I. 2 GM/50 ML IVPB IV ONE (10:13)
--- NOTE | 2019-07-14 13:28 | PROVIDER PROGRESS NOTE ---
Progress Note Subjective: He voices his blood glucose dropping yesterday and feeling hungover today. Objective: temperature 98.0, pulse 57, respirations 18, blood pressure 123/60, O2 sat 100% on room air. General: Elderly white make Lying in bed in no acute distress HEENT: normocephalic, atraumatic, pupils equal and reactive, mucous membranes moist. Skin: warm and dry Neck: supple, 6 cm jvd Cardiovascular: distant s1s2, bradycardia rate and rhythm. No murmur or gallop. Respiratory: clear and equal air entry anteriorly Abdomen: soft, tender to left upper quadrant, nondistended. Bowel sounds present : non inspected Extremities: No edema, clubbing, or cyanosis Neurologic: Alert and oriented to person, place, and time Labs: WBC 3.93, hemoglobin 8.6, hematocrit 25.5, platelet count 184, sodium 130, potassium 5.2, chloride 94, carbon dioxide 25, BUN 31, creatinine 1.6. Intake 2472, output 3475. Impression: Acute kidney injury associated with hyperkalemia. His creatinine is trending down. Hes receiving half normal saline at 75 mL/hour, no change. We will sign off today. rg Blood pressure. And target. Fluid volume. In target. Electrolytes. Mild hyperkalemia. Likely related to poor distal tubular sodium delivery. Improved. Remains on half normal saline. acid-base balance. Stable. Anemia. Stable. medication review no changes.
--- NOTE | 2019-07-14 15:53 | PROGRESS NOTE ---
DATE: 07/14/2019 SUBJECTIVE: The patient seems to be doing better. Kidney function is close to basically baseline. He still has some diarrhea. His antigen is positive, so I started this patient on treatment with vancomycin. He is getting half normal saline, and I will continue with the same treatment. He had an episode of hypoglycemia. Yesterday I readjusted his medications. Today, I decreased the dose of Lantus from 25 to 20. I instructed the patient to eat a little bit more/better. He has not been eating or drinking too much for the past few days because of nausea, vomiting and diarrhea. His stools are still watery, but more loose. OBJECTIVE: Vital Signs: Temperature 98.1 degrees, pulse 56, respiratory rate 18, blood pressure 125/49, oxygen saturation 100% on room air. HEENT: Head normocephalic, no trauma. PERRLA. Neck: Supple. No JVD. No masses. Central trachea. Chest: Clear to auscultation. Some crepitus at the bases. Abdomen: Soft. Generalized tenderness to palpation. He has a left colostomy which is functional, and he has some liquid/loose stools. Mild tenderness to palpation which is generalized. No signs of peritoneal irritation. Extremities: Trace edema. No clubbing, no cyanosis. Neurological examination: Patient is awake. He is alert, he is oriented x3. No focal deficits. Skin: In the perineal area he has some erythema. Also, he has a wound VAC. LABORATORY: WBC 3.9, hemoglobin 8.6, hematocrit 25.5, and platelets 184. Sodium 130, potassium 5.2, chloride 94, bicarbonate 25. BUN 31, creatinine 1.6, glucose 211, calcium 9.3, phosphorus 2.6, magnesium 1.6. ASSESSMENT AND PLAN: 1. Acute kidney injury likely due to dehydration secondary to nausea, vomiting, and diarrhea. He was placed on bicarbonate drip upon admission, which has been stopped. I have placed this patient on half normal saline, and I will continue with same management. He seems to be getting better. Kidney function seems to be at baseline. 2. Nausea vomiting, resolved. He is tolerating oral now. 3. Diarrhea with positive Clostridium difficile antigen. I have placed this patient on vancomycin oral, and I will continue with the same management. 4. Type 2 diabetes with some hypoglycemic events, especially yesterday during the night. I have readjusted his dose of insulin and this patient now is eating better, so probably he will tolerate insulin dose now. 5. Hypertension, better. 6. History of coronary artery disease, aware. 7. Atrial fibrillation. Continue with amiodarone. 8. History of cerebrovascular accident. Aware. 9. History of migraines, stable. 10. Hypomagnesemia. I will replace the magnesium. The magnesium level is around 1.6. 11. Hypophosphatemia. He will receive a dose of sodium phosphate. cc: Konrad Bell MD
[2019-07-14] MEDS: NORCO-5 PO PRN (16:36)
[2019-07-15] MEDS: VANCOCIN PO SCH ×3 (03:06→13:27)
[2019-07-15] MEDS: PRILOSEC PO SCH (06:23)
[2019-07-15] MEDS: HUMALOG SUBQ SCH ×2 (06:42→11:55)
[2019-07-15 06:54] LABS: BASO# 0.02 X1000 (0.0-0.2); BASO% 0.5 % (0.0-0.8); EOS# 0.21 X1000 (0.0-0.7); EOS% 5.3 % (0.0-10.0); HEMATOCRIT 24.7 % (42.0-52.0); HEMOGLOBIN 8.4 g/dL (14.0-18.0); IMM GRAN# 0.03 X1000 (0.0-0.04); IMM GRAN% 0.8 % (0.0-0.5); LYMPH# 0.98 X1000 (1.2-3.4); LYMPH% 24.7 % (20.5-51.1); MCH 28.8 PG (27-31); MCV 84.6 FL (81-99); MONO# 0.46 X1000 (0.11-0.59); MONO% 11.6 % (1.7-9.3); MPV 8.5 FL (7.4-10.4); NEUT# 2.27 X1000 (1.4-6.5); NEUT% 57.1 % (42.2-75.2); PLT 167 X1000 (130-400); RBC 2.92 XMIL (4.7-6.1); RDW 12.7 % (11.5-14.5); WBC 3.97 X1000 (4.8-10.8)
[2019-07-15 07:46] LABS: CALCIUM 8.8 mg/dL (8.8-10.2); CREATININE 1.6 mg/dL (0.7-1.2); POTASSIUM 4.8 mmol/L (3.5-5.1)
[2019-07-15] MEDS: HUMULIN 70/30 SUBQ SCH (09:00)
[2019-07-15] MEDS: CORDARONE PO SCH (09:32)
[2019-07-15] MEDS: FOLIC ACID PO SCH (09:32)
[2019-07-15] MEDS: ASPIRIN EC PO SCH (09:32)
--- NOTE | 2019-07-15 10:40 | GENERAL SURGERY PROGRESS NOTE ---
DATE: 07/15/2019 The patient seems to be doing about the same. He had a wound VAC placed. We will recheck and discuss with Wound Care once the wound VAC has been changed. cc: Nirmal Rouse MD
[2019-07-15 11:06] VITALS: BP 133/59
--- NOTE | 2019-07-15 13:50 | DISCHARGE SUMMARY ---
ADMISSION DATE: 07/11/2019 DISCHARGE DATE: DISCHARGE DIAGNOSES: 1. Acute kidney injury due to dehydration secondary to nausea, vomiting, and diarrhea. 2. Nausea and vomiting, resolved. 3. Diarrhea with positive Clostridium difficile antigen, likely Clostridium difficile colitis. 4. Type 2 diabetes with some episodes of hypoglycemic events, resolved. 5. Hypertension, better. 6. History of coronary artery disease. 7. Atrial fibrillation. 8. History of cerebrovascular accident. 9. History of migraines. 10. Electrolyte imbalance. PROCEDURES PERFORMED: 1. Renal ultrasound dated 07/10/2019. Impression: No evidence of obstructive uropathy. 2. Chest x-ray dated 07/11/2019. Impression: Stable chest. HOSPITAL COURSE: A 69-year-old, male with a past medical history of colon cancer, status post multiple surgical procedures with partial colon resection, colostomy placement, reversal of colostomy, along with diverting loop ileostomy, and complications with exploratory laparotomy, and lysis of adhesions. 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 As per the patient, 2 to 3 days before admission, he started having nausea, weakness, vomiting, and diarrhea. No coffee-grounds emesis, lower abdominal pain. The diarrhea was without blood and it was green. He denied any fever or chills, or cardiorespiratory complaints. His urine output he said at that time was good but the color was light damián. He was brought in because of worsening vomiting, nausea, and worsening lab work. He received fluids because of the kidney injury. Actually, we started this patient on a bicarbonate drip because of the metabolic acidosis. Nephrology department was consulted but the patient was improving on a daily basis. No intervention was required. A ultrasound of the kidneys was stable. The nausea and vomiting resolved, and he started eating some food after getting more hydrated but we received lab work that showed a positive Clostridium difficile antigen. I started this patient on vancomycin p.o. After that, his bowel movements were not as liquid as before. Actually, they are a little bit more loose now but better. He is feeling much better. He is tolerating p.o. He is no longer having nausea and vomiting. He had a couple episodes of hypoglycemia and I do believe it was because he was not eating. I have decreased a little bit the dose of his insulin and now he is doing fine. I talked to the patient and I told him that probably in the future, we need to increase the dose again once he is completely better. He will go to a rehab center/penitentiary. I recommend to continue with some of his home medications but we are going to hold for now, at least for 5 days, his lisinopril since he came in with acute on chronic kidney disease. PHYSICAL EXAMINATION: Vital Signs: Temperature 98 degrees, pulse 56, respiratory rate 17, blood pressure 133/59, oxygen saturation 100% on room air. HEENT: Head normocephalic. No trauma. PERRLA. Neck: Supple. No JVD. No masses. Central trachea. Chest: Clear to auscultation. Some crepitus at the bases. Abdomen: Soft. Generalized tenderness to palpation. He has a left colostomy which is functional. He has also some liquid/loose stools. Mild tenderness to palpation which is generalized but no signs of peritoneal irritation. Extremities: Trace edema. No clubbing. No cyanosis. Neurological Examination: The patient is awake and alert. He is oriented x3. No focal deficit. Skin: In the perineal area, he has some erythema and a wound VAC placed. LABORATORY: WBC 3.9, hemoglobin 9.4, hematocrit 24.7, platelets 167,000. Sodium 133, potassium 4.8, chloride 98, bicarbonate 23, BUN 24, creatinine 1.6, glucose 183, calcium 8.8. DISCHARGE MEDICATIONS: 1. Acetaminophen 650 mg p.o. q.6 hours as needed for fever. 2. Amiodarone 1 tablet p.o. daily, 200 mg tablet. 3. Aspirin 81 mg p.o. daily. 4. Atorvastatin 40 mg p.o. at bedtime. 5. Ferrous sulfate 325 mg p.o. daily. 6. Folic acid 1 tablet p.o. b.i.d. of 1 mg. 7. [place] 5 one tablet p.o. q.4-6 hours as needed for pain. 8. Novolin 70/30 with 25 units subcutaneously twice a day. 9. Lisinopril 10 mg p.o. at bedtime. We will restart this treatment in around 5 days. 10. Metoprolol 25 mg p.o. daily. 11. Pantoprazole 40 mg p.o. daily. 12. Vancomycin 125 mg p.o. q.6 hours for 8 more days. Time discharging this patient, 35 minutes. cc: Konrad Bell MD
== END 2019-07-15 14:34 | DRG 683 ==
LOC: SUPCPDRO → ED 17:12 → EDIPHOLD 07-11 00:11 → SUATTDRO 07-11 00:11 → 2N 07-11 15:04 → 4N 07-12 19:52
PROVIDERS: ATTEND Internal Medicine